=== PATIENT | female | born 2005 | race Caucasian/White ===

== ENCOUNTER 2024-05-06 20:52 | Emergency (ER) | payer BC, SELFPAY ==
[2024-05-06 20:59] VITALS: BP 140/84; PULSE 99; RESP 18; TEMP 38.4; O2SAT 99; BMI 20.5
--- NOTE | 2024-05-06 21:04 | ED.GENADULT ---
HPI - General Adult General Chief complaint: Sore Throat Stated complaint: Possible [place] Time Seen by Provider: 05/06/24 20:57 History of Present Illness HPI narrative: Pt states she has been feeling ill since April 21. Started with sore throat, now today began feeling feverish. Also c/o cough that began dry, now has yellow phlegm, headache, and just exhausted . Pt states she thinks she may have mono. Last took Advil yesterday. Has not been seen in clinic for these symptoms. 19-year-old young woman presenting to the emergency department with concern of fatigue and sore throat maybe as long as 2 weeks but more so the last week. Today was the 1st day she had fever. Arrives here with a temp of 101.2?. Initial symptoms with sore throat. Has had some cough mildly productive. Quite tired. She does have a friend who had mono but not really close contact. 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 She does have maybe some spring allergies and has been experiencing some nasopharyngeal congestion as well. First 2 days maybe had a reddish rash in the right upper neck. No abdominal pain. Intermittently has been feeling a little lightheaded. Related Data Previous Rx's ?Medication ?Instructions ?Recorded prednisone 20 mg tablet 40 mg (2 x 20 mg) PO DAILY 5 days 05/06/24 #10 tabs Allergies Allergy/AdvReac Type Severity Reaction Status Date / Time No Known Drug Allergies Allergy Verified 05/06/24 21:03 Review of Systems Status of ROS: Reports: 6 or more systems reviewed and unremarkable except as noted in History and below PFSH PFS Social History Smoking Status: Never smoker Do you use any of these nicotine containing products: Vaping Products Second hand tobacco smoke exposure: No How often do you have a drink containing alcohol: monthly or less How often do you have six or more drinks on one occasion: Never AUDIT-C Alcohol total score: 1 Non-prescribed substance use: marijuana (any form) service: No Exam Narrative: Exam Narrative: Pleasant. Tall. NAD. Does sound a little congested nasopharynx without facial swelling erythema or tenderness. She does have the facial and little neck a closed comedonal acne. Lungs are clear. Heart in elevated rate and regular rhythm without murmur or gallop. Neck is supple without anterior or posterior cervical lymphadenopathy. Oropharynx is little erythematous without edema/swelling. Extremities are well perfused without edema. There are no rash or skin. Does feel generally warm particularly about her neck. Abdomen is flat soft nontender no HSM. Const: Vital Signs, click to edit/add: Vital Signs - 24 hr 05/06/24 20:59 05/06/24 22:31 Temperature 101.2 F H 100.2 F H Pulse Rate [Pulse Oximeter] 99 77 Respiratory Rate 18 16 Blood Pressure [Ri ght Upper Arm] 140/84 H 119/77 Pulse Oximetry 99 99 Oxygen Delivery Me thod Room Air Room Air Documenting provider has reviewed patient's vital signs: yes Course Vital Signs Vital signs: Initial Vital Signs Temperature 101.2 F H 05/06/24 20:59 Temperature Source Temporal Artery Scan 05/06/24 20:59 Pulse Rate 99 05/06/24 20:59 Pulse Rhythm Regular 05/06/24 20:59 Respiratory Rate 18 05/06/24 20:59 Blood Pressure 140/84 H 05/06/24 20:59 Blood Pressure Mean 102 05/06/24 20:59 Blood Pressure Position Sitting 05/06/24 20:59 Pulse Oximetry 99 05/06/24 20:59 Oxygen Delivery Method Room Air 05/06/24 20:59 Vital Signs Temperature 101.2 F H 05/06/24 20:59 Pulse Rate 99 05/06/24 20:59 Respiratory Rate 18 05/06/24 20:59 Blood Pressure 140/84 H 05/06/24 20:59 Pulse Oximetry 99 05/06/24 20:59 Oxygen Delivery Method Room Air 05/06/24 20:59 Temperature 100.2 F H 05/06/24 22:31 Pulse Rate 77 05/06/24 22:31 Respiratory Rate 16 05/06/24 22:31 Blood Pressure 119/77 05/06/24 22:31 Pulse Oximetry 99 05/06/24 22:31 Oxygen Delivery Method Room Air 05/06/24 22:31 Medical Decision Making MDM Narrative Medical decision making narrative: Does appear to have what is likely viral illness. Unusual though with new fever. Would screen for infections present in the community along with Monospot. Monospot might not generate a positive result yet. Does not have any abdominal pain to warrant further concern. Pending initial screenings might also check chest x-ray potential pneumonia. Physical exam would not suggest anemia and the next level workup would be laboratory. Nasopharyngeal congestion may be contributing to sensation of fatigue/dyspnea. Chest x-ray reviewed by me is WNL. Labs are reassuring/negative. Perhaps some lingering bronchitis of sorts. Might benefit from prednisone and likely stimulating. This would also be be treatment in the setting of mono. Sending this into the pharmacy though and Mikaela will consider further. See patient discharge plan for further discussion Lab Data Lab results reviewed: Yes I reviewed the patient's lab results Labs: Lab Results 05/06/24 05/06/24 Range/Units 21:14 21:40 SARS-CoV-2 (PCR) Negative SARS-CoV-2 (Negative) Monoscreen Negative (Negative) Influenza Type A (PCR) Negative PCR FLU A (Negative) Influenza Type B (PCR) Negative PCR FLU B (Negative) RSV (PCR) Negative PCR RSV (Negative) Group A Strep DNA NOT DETECTED (Not Detectd) Discharge Plan Discharge Clinical Impression: Fever, Fatigue Patient Disposition: Home, Self-Care Condition: Stable Additional Instructions: Stay well-hydrated. Get regular and quality sleep. You might benefit from a decongestant like pseudoephedrine. Consider sleep under the mist of a cool mist humidifier. Can take up to 600 mg of ibuprofen or up to 850 mg of acetaminophen per dose. Prednisone can be helpful for lingering cough as well as for inflammation we see with mono. It can also help with inflammation that is creating nasopharyngeal congestion. You did not test positive for mono today. It might have been too early yet to get a positive result. I am sending prednisone in to your pharmacy if you like. If symptoms are continuing yet another week, would follow up possibly for retesting. Be seen also for persistent increasing shortness of breath, persistent fever lasting 4 more days, worsening chest pain. Prescriptions: New prednisone 20 mg tablet 40 mg PO DAILY 5 Days Qty: 10 0RF Follow Up/Referrals: Provider,Not a Local [Primary Care Provider] - Stand Alone Forms: [employer] Info Instructions
[2024-05-06 21:51] LABS: Mono Screen* Negative (Negative)
[2024-05-06 21:56] LABS: Strep A DNA Probe* NOT DETECTED (Not Detectd)
[2024-05-06 22:09] LABS: PCR FLU A Negative PCR FLU A (Negative); PCR FLU B Negative PCR FLU B (Negative); PCR RSV Negative PCR RSV (Negative); SARS PCR* Negative SARS-CoV-2 (Negative)
[2024-05-06 22:31] VITALS: BP 119/77; PULSE 77; RESP 16; TEMP 37.9; O2SAT 99
--- NOTE | 2024-05-06 22:36 | CRLHL7_ITS ---
For Patients: As a result of the Cures Act, medical imaging exams and procedure reports are released immediately into your electronic medical record. You may view this report before your referring provider. If you have questions, please contact your health care provider. Indication: Cough, dyspnea Technique: Two views of the chest Comparison: None Findings/Impression: No acute cardiopulmonary process detected. Dictated by Rich Villalpando MD @ 05/06/2024 11:07:12 PM (Electronically Signed)
== END 2024-05-06 23:26 | disposition home or self-care (01) ==
PROVIDERS: Emergency Provider Family Medicine
DX: R50.9 Fever, unspecified (principal); R53.83 Other fatigue
CPT/HCPCS: 36415; 71046; 86308; 87631; 87651; 99284

== ENCOUNTER 2024-05-09 09:01 | Outpatient (CLI) | payer BC, SELFPAY ==
[2024-05-09 09:34] LABS: Basophils Percent Auto 0.3 % (0.0-3.0); Eosinophils Percent Auto 0.1 % (0.0-7.0); Hemoglobin* 10.7 gm/dL (12.0-16.0); Immature Granulocytes Pct Auto 0.1 %; Lymphocytes Percent Auto 8.8 % (20-44); Mean Corpuscular HGB Conc 29 gm/dL (32-36); Mean Corpuscular Hemoglobin 21 pg (26-34); Mean Corpuscular Volume 72 fL (80-100); Monocytes Percent Auto 7.2 % (0.0-11.0); Neutrophils Percent Auto 83.5 % (42.0-72.0); Platelet Count* 347 K/uL (140-440); RDW Coefficient of Variation % 21.3 % (11.5-15.5); Red Blood Count 5.14 m/uL (4.00-5.20)
[2024-05-09 09:53] LABS: Albumin* 4.8 g/dL (3.3-5.0)
[2024-05-09 09:54] LABS: Chloride* 103 mmol/L (96-114); Potassium* 4.4 mmol/L (3.6-5.1); Sodium* 138 mmol/L (135-149)
[2024-05-09 09:56] LABS: Anion Gap 10 mEq/L (7-15); Bilirubin Direct* 0.2 mg/dL (0.0-0.5); Bilirubin Total* 0.7 mg/dL (0.1-1.5); Carbon Dioxide* 25 mmol/L (20-32); Creatinine* 0.9 mg/dL (0.5-1.5); Estimated Glomerular Filt Rate 94 ml/min
[2024-05-09 09:57] LABS: Alanine Aminotransferase* 20 U/L (4-35); Alkaline Phosphatase* 94 U/L (40-150); Aspartate Amino Transferase* 66 U/L (12-35); Blood Urea Nitrogen* 12 mg/dL (5-24); Calcium* 9.8 mg/dL (8.4-10.6); Glucose* 100 mg/dL (60-115); Total Protein* 8.8 g/dL (6.0-8.3)
[2024-05-09 10:24] LABS: Slide Review Reflex Yes
[2024-05-09 10:25] LABS: Slide Review Acceptable Review (Acceptable)
[2024-05-10 19:27] LABS: EBV Ab Nuclear Ag IgG >600.0 U/mL (0.0-21.9); EBV Ab Viral Capsid Ag IgM <10.0 U/mL (0.0-43.9); EBV Ab to Early (D) Ag IgG <5.0 U/mL (0.0-10.9)
== END 2024-05-09 09:02 | disposition home or self-care (01) ==
LOC: LAB 09:04
PROVIDERS: Visit Provider Family Medicine
DX: J02.9 Acute pharyngitis, unspecified (principal); R59.0 Localized enlarged lymph nodes
CPT/HCPCS: 36415; 80048; 80076; 85025; 86663; 86664; 86665

== ENCOUNTER 2024-05-09 12:14 | Emergency (ER) | payer BC, SELFPAY ==
[2024-05-09 12:21] VITALS: BP 131/86; PULSE 90; RESP 22; TEMP 38.1; O2SAT 99; BMI 20.5
--- NOTE | 2024-05-09 12:28 | CRLHL7_ITS ---
For Patients: As a result of the Cures Act, medical imaging exams and procedure reports are released immediately into your electronic medical record. You may view this report before your referring provider. If you have questions, please contact your health care provider. Indication: Shortness of breath Comparison: Two-view chest May 06, 2024 Technique: PA and lateral views of the chest Findings: There is no focal consolidation, effusion, or pneumothorax. The cardiomediastinal silhouette is within normal limits. The bony thorax is grossly intact. Impression: No acute cardiopulmonary abnormality. Dictated by Myles Talavera MD @ 05/09/2024 12:53:59 PM (Electronically Signed)
--- NOTE | 2024-05-09 13:08 | CRLHL7_ITS ---
For Patients: As a result of the Century Cures Act, medical imaging exams and procedure reports are released immediately into your electronic medical record. You may view this report before your referring provider. If you have questions, please contact your health care provider. Indication: Rule out abscess Technique: Volumetric multidetector CT images of the cervical soft tissues were obtained after the administration of low osmolar intravenous contrast. 75 cc Isovue 370 low osmolar intravenous contrast Comparison: None available. Findings: The partially visualized brain parenchyma is normal in attenuation without evidence of abnormal enhancement. The orbits and their contents are within normal limits. The paranasal sinuses are clear. The mastoid air cells are clear. There is moderate mucosal thickening and hyperemia of the adenoid and nasopharyngeal mucosa. There is enlargement of the dziu-cjllezj-wfpr-right palatine tonsil with demonstration of a rim enhancing abscess in the left tonsil measuring 1.5 x 1.3 centimeters with minimal encroachment of the parapharyngeal space. There is moderate edema within the left fascial pillar extending to the hypopharynx. There is marked edema at the base of tongue with demonstration of hypertrophic lymphoid tissue consistent with tonsillitis at the base of tongue. There is questionable mild inflammatory changes extending into the left submandibular space with mild thickening of the left platysma which may represent minimal early Jeremy`s angina. There is mild prominence of the right greater than left laryngeal ventricle. The thyroid gland is normal in attenuation. There are reactive cervical lymph nodes appreciated. The jugular veins are patent. The carotid arteries demonstrate no significant atherosclerotic narrowing. The lung apices are clear. There is mild spasmodic reversal of the normal cervical lordosis. Otherwise no acute osseous abnormality. Impression: Extensive inflammatory mucosal hypertrophy of the Waldeyer`s ring tissues including the left greater than right palatine tonsils, lingual tonsil, and adenoids with demonstration of a 1.5 x 1.3 centimeter peritonsillar abscess within the left palatine tonsil. There is minimal early inflammatory change appreciated within the left submandibular space which may represent developing Jeremy`s angina. Correlate with history of clinical symptoms. Please note that all CT scans at this facility use dose modulation, iterative reconstruction, and/or weight-based dosing when appropriate to reduce radiation dose to as low as reasonably achievable. Dictated by Myles Talavera MD @ 05/09/2024 2:17:20 PM (Electronically Signed)
[2024-05-09 13:10] LABS: Strep A DNA Probe* NOT DETECTED (Not Detectd)
[2024-05-09 13:17] LABS: Basophils Percent Auto 0.2 % (0.0-3.0); Eosinophils Percent Auto 0.1 % (0.0-7.0); Hematocrit 36.5 % (33.0-51.0); Hemoglobin* 10.7 gm/dL (12.0-16.0); Immature Granulocytes Pct Auto 0.2 %; Lymphocytes Percent Auto 8.8 % (20-44); Mean Corpuscular HGB Conc 29 gm/dL (32-36); Mean Corpuscular Hemoglobin 21 pg (26-34); Mean Corpuscular Volume 72 fL (80-100); Monocytes Percent Auto 7.3 % (0.0-11.0); Neutrophils Percent Auto 83.4 % (42.0-72.0); Platelet Count* 309 K/uL (140-440); RDW Coefficient of Variation % 21.1 % (11.5-15.5); Red Blood Count 5.08 m/uL (4.00-5.20); White Blood Count* 12.53 K/uL (4.50-11.00)
[2024-05-09 13:19] LABS: Slide Review Reflex No
[2024-05-09 13:22] LABS: PCR FLU A Negative PCR FLU A (Negative); PCR FLU B Negative PCR FLU B (Negative); PCR RSV Negative PCR RSV (Negative); SARS PCR* Negative SARS-CoV-2 (Negative)
[2024-05-09 13:36] LABS: Chloride* 102 mmol/L (96-114); Potassium* 4.2 mmol/L (3.6-5.1); Sodium* 138 mmol/L (135-149)
[2024-05-09 13:39] LABS: Est. Creatinine Clearance* 86.75; Estimated Glomerular Filt Rate 83 ml/min
[2024-05-09 13:40] LABS: Anion Gap 11 mEq/L (7-15); Blood Urea Nitrogen* 12 mg/dL (5-24); Calcium* 9.9 mg/dL (8.4-10.6); Carbon Dioxide* 25 mmol/L (20-32); Glucose* 98 mg/dL (60-115)
[2024-05-09 13:43] LABS: C Reactive Protein* 7.8 mg/dL (0.5-1.0)
[2024-05-09 13:53] LABS: Mono Screen* Negative (Negative)
[2024-05-09] MEDS: AMPICILLIN/SULBACTAM 3 GM in 0.9 % SODIUM CHLORIDE Mini-bag 100 ML IVPB ×2 (14:07→20:45)
--- NOTE | 2024-05-09 14:07 | ED.GENADULT ---
HPI - General Adult General Chief complaint: Sore Throat Stated complaint: Trouble breathing, cant swallow, sore throat Time Seen by Provider: 05/09/24 12:27 Source: patient Mode of arrival: ambulatory Limitations: no limitations History of Present Illness HPI narrative: A 19-year-old female coming in today complaining of not feeling well for about 2 weeks. Patient has had a sore throat and fevers. She feels like her sore throat has been progressively getting worse instead of better. Patient does have a history of peritonsillar abscesses is concerned that the same thing is happening again. In the last 24 hours her voice has become muffled and she has developed difficulty opening and closing her jaw. Yesterday she did have COVID, influenza, RSV and group a strep, and mono testing done all of which were negative. Related Data Previous Rx's ?Medication ?Instructions ?Recorded prednisone 20 mg tablet 40 mg (2 x 20 mg) PO DAILY 5 days 05/06/24 #10 tabs amoxicillin 400 mg-potassium 10 ml PO BID 7 days #140 mL 05/09/24 clavulanate 57 mg/5 mL oral suspension oxycodone-acetaminophen 5 mg-325 5 ml PO Q4-6H PRN pain #100 mL 05/09/24 mg/5 mL oral solution Allergies Allergy/AdvReac Type Severity Reaction Status Date / Time No Known Drug Allergies Allergy Verified 05/06/24 21:03 Review of Systems Status of ROS: Reports: 10 or more systems reviewed and unremarkable except as noted in History and below PFSH PFS Social History Smoking Status: Never smoker Do you use any of these nicotine containing products: Vaping Products Second hand tobacco smoke exposure: No How often do you have a drink containing alcohol: monthly or less How often do you have six or more drinks on one occasion: Never AUDIT-C Alcohol total score: 1 Non-prescribed substance use: marijuana (any form) service: No Exam Narrative: Exam Narrative: Well-nourished well-developed patient in no acute distress. Alert and oriented. Answers questions appropriately. Mood and affect are appropriate. Thoughts are goal oriented and rational. No tangential or magical thinking noted. Patient's voice sounds muffled. HEENT: Normocephalic atraumatic. Pupils are equally round reactive to light. Extraocular muscles are intact. Conjunctivae are moist without any icterus noted. Moist mucous membranes. Shows erythematous and swollen soft palate with double left side protruding forward. Patient is really difficult time opening her mouth fully. Cardiovascular: Heart is regular rate and rhythm S1 and S2 are present without any murmurs. Lungs: Clear to auscultation bilaterally no wheezes rhonchi or rales are appreciated. Patient takes deep breaths without any discomfort. Skin: Well perfused without any obvious rashes. Const: Vital Signs, click to edit/add: Vital Signs - 24 hr 05/09/24 12:21 05/09/24 14:27 Temperature 100.5 F H 101.1 F H Pulse Rate [Pulse Oximeter] 90 82 Respiratory Rate 22 18 Blood Pressure [Le ft Upper Arm] 131/86 119/78 Pulse Oximetry 99 100 Oxygen Delivery Me thod Room Air Room Air Course Course ED Course: Given her muffled voice, trismus in fever we did go ahead and establish an IV and give the patient Unasyn and dexamethasone. CBC shows a white cell count of 12.5, hemoglobin 10.7, 83.4% neutrophils. Chemistries are normal. CRP elevated at 7.8. Negative mono, COVID, influenza RSV and group a strep today. Chest x-ray, read by me, does not show any acute infection. CT of the neck shows a 1.5 x 1.3 cm peritonsillar abscess. Discussed patient with Dr. Ann who recommends surgical intervention. Dr. Reyes to see the patient in the ER. Dr. Reyes did come to evaluate the patient. He also looked at her scan. Per his recommendation he would like the patient to have another dose of IV Unasyn, then to be discharged home with Augmentin and Roxicet. He wants the patient to call Dr. Ann tomorrow if she is not feeling some improvement. Vital Signs Vital signs: Initial Vital Signs Temperature 100.5 F H 05/09/24 12:21 Temperature Source Temporal Artery Scan 05/09/24 12:21 Pulse Rate 90 05/09/24 12:21 Pulse Rhythm Regular 05/09/24 12:21 Respiratory Rate 22 05/09/24 12:21 Blood Pressure 131/86 05/09/24 12:21 Blood Pressure Mean 101 05/09/24 12:21 Blood Pressure Position Supine 09/17/24 12:21 Pulse Oximetry 99 05/09/24 12:21 Oxygen Delivery Method Room Air 05/09/24 12:21 Vital Signs Temperature 100.5 F H 05/09/24 12:21 Pulse Rate 90 05/09/24 12:21 Respiratory Rate 22 05/09/24 12:21 Blood Pressure 131/86 05/09/24 12:21 Pulse Oximetry 99 05/09/24 12:21 Oxygen Delivery Method Room Air 05/09/24 12:21 Temperature 101.1 F H 05/09/24 14:27 Pulse Rate 82 05/09/24 14:27 Respiratory Rate 18 05/09/24 14:27 Blood Pressure 119/78 05/09/24 14:27 Pulse Oximetry 100 05/09/24 14:27 Oxygen Delivery Method Room Air 05/09/24 14:27 Medications Administered Medications: Generic Name Dose Route Start Last Admin Trade Name Freq PRN Reason Stop Dose Admin Sodium Chloride 1,000 mls @ 1,000 mls/hr 05/09/24 16:00 05/09/24 15:57 0.9 % Sodium Chloride 1000 Ml IV 05/09/24 16:59 1,000 mls/hr .Q1H OZZIE Administration Discontinued Medications Generic Name Dose Route Start Last Admin Trade Name Freq PRN Reason Stop Dose Admin Dexamethasone 8 mg 05/09/24 14:31 05/09/24 14:43 Dexamethasone 4 Mg/Ml Vial IV 05/09/24 14:32 8 mg ONCE ONE Administration Ampicillin Sodium/Sulbactam 100 mls @ 200 mls/hr 05/09/24 13:24 05/09/24 14:47 Sodium 3 gm/ Sodium Chloride IVPB 05/09/24 13:25 Infused ONCE ONE Infusion Morphine Sulfate 2 mg 05/09/24 14:58 05/09/24 15:07 Morphine 2 Mg/Ml Inj IVP 05/09/24 14:59 2 mg ONCE ONE Administration Ondansetron HCl 4 mg 05/09/24 14:58 05/09/24 15:07 Ondansetron 2 Mg/Ml Inj IVP 05/09/24 14:59 4 mg ONCE ONE Administration Medical Decision Making MDM Narrative Medical decision making narrative: 19-year-old female with peritonsillar abscess. Plan per above, per ENT. Lab Data Lab results reviewed: Yes I reviewed the patient's lab results Labs: Lab Results 05/09/24 05/09/24 Range/Units 12:28 13:11 WBC 12.53 H (4.50-11.00) K/uL RBC 5.08 (4.00-5.20) m/uL Hgb 10.7 L (12.0-16.0) gm/dL Hct 36.5 (33.0-51.0) % MCV 72 L (80-100) fL MCH 21 L (26-34) pg MCHC 29 L (32-36) gm/dL RDW Coeff of Manoj 21.1 H (11.5-15.5) % Plt Count 309 (140-440) K/uL Neut % (Auto) 83.4 H (42.0-72.0) % Lymph % (Auto) 8.8 L (20-44) % [place] % (Auto) 7.3 (0.0-11.0) % Eos % (Auto) 0.1 (0.0-7.0) % Baso % (Auto) 0.2 (0.0-3.0) % Neut # (Auto) 10.50 H (1.7-7.0) K/uL Lymph # (Auto) 1.10 (0.90-2.90) K/uL [place] # (Auto) 0.90 (0.00-0.90) K/UL Eos # (Auto) 0.00 (0.00-0.50) K/uL Baso # (Auto) 0.00 (0.00-0.30) K/uL Abs Immat Gran (auto) 0.00 (0.00-0.30) K/uL Imm/Tot Granulo (auto) 0.2 % Sodium 138 (135-149) mmol/L Potassium 4.2 (3.6-5.1) mmol/L Chloride 102 (96-114) mmol/L Carbon Dioxide 25 (20-32) mmol/L Anion Gap 11 (7-15) mEq/L BUN 12 (5-24) mg/dL Creatinine 1.0 (0.5-1.5) mg/dL Estimated Creat Clear 86.75 Estimated GFR 83 ml/min Glucose 98 (60-115) mg/dL Calcium 9.9 (8.4-10.6) mg/dL C-Reactive Protein 7.8 H (0.5-1.0) mg/dL SARS-CoV-2 (PCR) Negative SARS-CoV-2 (Negative) Monoscreen Negative (Negative) Influenza Type A (PCR) Negative PCR FLU A (Negative) Influenza Type B (PCR) Negative PCR FLU B (Negative) RSV (PCR) Negative PCR RSV (Negative) Group A Strep DNA NOT DETECTED (Not Detectd) Imaging Data CT soft tissue neck: Attestation: I have reviewed the pertinent imaging results. Radiologist's impression: Technique: Volumetric multidetector CT images of the cervical soft tissues were obtained after the administration of low osmolar intravenous contrast. 75 cc Isovue 370 low osmolar intravenous contrast Comparison: None available. Findings: The partially visualized brain parenchyma is normal in attenuation without evidence of abnormal enhancement. The orbits and their contents are within normal limits. The paranasal sinuses are clear. The mastoid air cells are clear. There is moderate mucosal thickening and hyperemia of the adenoid and nasopharyngeal mucosa. There is enlargement of the zlrv-hkhxxhe-[id number]-right palatine tonsil with demonstration of a rim enhancing abscess in the left tonsil measuring 1.5 x 1.3 centimeters with minimal encroachment of the parapharyngeal space. There is moderate edema within the left fascial pillar extending to the hypopharynx. There is marked edema at the base of tongue with demonstration of hypertrophic lymphoid tissue consistent with tonsillitis at the base of tongue. There is questionable mild inflammatory changes extending into the left submandibular space with mild thickening of the left platysma which may represent minimal early Jeremy`s angina. There is mild prominence of the right greater than left laryngeal ventricle. The thyroid gland is normal in attenuation. There are reactive cervical lymph nodes appreciated. The jugular veins are patent. The carotid arteries demonstrate no significant atherosclerotic narrowing. The lung apices are clear. There is mild spasmodic reversal of the normal cervical lordosis. Otherwise no acute osseous abnormality. Impression: Extensive inflammatory mucosal hypertrophy of the Waldeyer`s ring tissues including the left greater than right palatine tonsils, lingual tonsil, and adenoids with demonstration of a 1.5 x 1.3 centimeter peritonsillar abscess within the left palatine tonsil. There is minimal early inflammatory change appreciated within the left submandibular space which may represent developing Jeremy`s angina. Correlate with history of clinical symptoms. Discharge Plan Discharge Clinical Impression: Abscess, peritonsillar Patient Disposition: Home, Self-Care Condition: Stable Additional Instructions: Take all antibiotics as prescribed. Okay to take the 1st dose in the morning. You should call Dr. Jennings tomorrow if you are not feeling some improvement. (call the main clinic phone number, this number will be provided to you) If, by chance, you were not able to get a hold of him then you can call Dr. Reyes at [phone]. If you are feeling worse, return to the emergency department. Prescriptions: New amoxicillin-pot clavulanate 400-57 mg/5 mL suspension for reconstitution 10 ml PO BID 7 Days Qty: 140 0RF oxycodone-acetaminophen 5-325 mg/5 mL solution 5 ml PO Q4-6H PRN (Reason: pain) Qty: 100 0RF No Action prednisone 20 mg tablet 40 mg PO DAILY 5 Days Qty: 10 0RF Follow Up/Referrals: Provider,Not a Local [Primary Care Provider] - Stand Alone Forms: [employer] Info Instructions
[2024-05-09 14:27] VITALS: BP 119/78; PULSE 82; RESP 18; TEMP 38.4; O2SAT 100
[2024-05-09] MEDS: dexAMETHasone 4 MG/ML VIAL 8 MG IV (14:43)
[2024-05-09] MEDS: ONDANSETRON 2 MG/ML inj 4 MG IVP (15:07)
[2024-05-09] MEDS: MORPHINE 2 MG/ML inj IVP (15:07)
[2024-05-09] MEDS: 0.9 % SODIUM CHLORIDE 1000 ml 1,000 ML IV (15:57)
[2024-05-09 17:09] VITALS: BP 119/78; PULSE 80; RESP 18; TEMP 37.6; O2SAT 97
[2024-05-09] MEDS: KETOROLAC 30 MG/ML inj IVP (17:13)
== END 2024-05-09 22:00 | disposition home or self-care (01) ==
PROVIDERS: Emergency Provider Family Medicine
DX: J36 Peritonsillar abscess (principal)
CPT/HCPCS: 36415; 70491; 71046; 80048; 80076; 85025; 86140; 86308; 86663; 86664; 86665; 87631; 87651; 94761; 96365; 96366; 96375; 99284; 99285; J0295; J1100; J1885; J2270; J2405; J7030; Q9967

== ENCOUNTER 2024-05-11 03:11 | Day surgery (SDC) | payer BC, SELFPAY ==
[2024-05-11] VITALS (14 sets, daily range): BP systolic 99–118; BP diastolic 56–77; PULSE 54–77; RESP 12–16; TEMP 36.5–37; O2SAT 94–100; BMI 19.9
--- NOTE | 2024-05-11 03:22 | ED_ITS ---
HPI - General Adult General Chief complaint: Ear/Nose/Throat Problem Stated complaint: abscess in tonsils Time Seen by Provider: 05/11/24 03:22 History of Present Illness HPI narrative: pt reports pain to left side of throat. Pt has an abscess to tonsils, left sided pain . Pt was told to be seen in ER if pain became worse. Pt has an appoint today with surgeon to see if antibiotics are working. Pt reports breathing OK, difficulty in swallowing. 19-year-old young woman returning to the emergency department with concern of increased pain in her throat. Diagnosed about 36 hours ago with possible left- sided peritonsillar abscess after about 2 weeks of fatigue and then increasing sore throat. Was treated in the emergency department with 2 doses of Unasyn, 1 dose of dexamethasone and discharged on Augmentin which she has continued to take. No fever. Have been crushing up pills. Taking regular oxycodone but does not sound like regular ibuprofen or acetaminophen. Having trouble keeping up with intake due to discomfort. No difficulty breathing. Was to follow up with ENT in clinic today for reassessment. Later says it feels as if it is larger on the left side Past medical -- denies prior surgeries; no known complications than stated Related Data Previous Rx's ?Medication ?Instructions ?Recorded prednisone 20 mg tablet 40 mg (2 x 20 mg) PO DAILY 5 days 05/06/24 #10 tabs amoxicillin 400 mg-potassium 10 ml PO BID 7 days #140 mL 05/09/24 clavulanate 57 mg/5 mL oral suspension oxycodone-acetaminophen 5 mg-325 5 ml PO Q4-6H PRN pain #100 mL 05/09/24 mg/5 mL oral solution Allergies Allergy/AdvReac Type Severity Reaction Status Date / Time No Known Drug Allergies Allergy Verified 05/06/24 21:03 Review of Systems Status of ROS: Reports: 6 or more systems reviewed and unremarkable except as noted in History and below [facility] Social History Smoking Status: Never smoker Do you use any of these nicotine containing products: Vaping Products Second hand tobacco smoke exposure: No How often do you have a drink containing alcohol: monthly or less How often do you have six or more drinks on one occasion: Never AUDIT-C Alcohol total score: 1 Non-prescribed substance use: marijuana (any form) service: No Exam Narrative: Exam Narrative: Pleasant. Initially not talking as that only painful. No stridor. Lungs are clear. Heart in regular rate and rhythm. Extremities are well perfused and without edema. Neck is supple though quite tender in the left upper anterior cervical neck. Small lymphadenopathy here. Demonstrating trismus she reluctantly opens her mouth a little bit. Very difficult to visualize posterior oropharynx. Generally faintly erythematous and with asymmetry of edema in the left soft palate/tonsillar area. Const: Vital Signs, click to edit/add: Vital Signs - 24 hr 05/11/24 03:15 Temperature 97.7 F Pulse Rate [Left P ulse Oximeter] 77 Respiratory Rate 16 Blood Pressure [Ri ght Upper Arm] 118/77 Pulse Oximetry 100 Oxygen Delivery Me thod Room Air Documenting provider has reviewed patient's vital signs: yes Course Vital Signs Vital signs: Initial Vital Signs Temperature 97.7 F 05/11/24 03:15 Temperature Source Temporal Artery Scan 05/11/24 03:15 Pulse Rate 77 05/11/24 03:15 Pulse Rhythm Regular 05/11/24 03:15 Respiratory Rate 16 05/11/24 03:15 Blood Pressure 118/77 05/11/24 03:15 Blood Pressure Mean 90 05/11/24 03:15 Blood Pressure Position Sitting 05/11/24 03:15 Pulse Oximetry 100 05/11/24 03:15 Oxygen Delivery Method Room Air 05/11/24 03:15 Vital Signs Temperature 97.7 F 05/11/24 03:15 Pulse Rate 77 05/11/24 03:15 Respiratory Rate 16 05/11/24 03:15 Blood Pressure 118/77 05/11/24 03:15 Pulse Oximetry 100 05/11/24 03:15 Oxygen Delivery Method Room Air 05/11/24 03:15 Temperature 97.7 F 05/11/24 03:15 Pulse Rate 77 05/11/24 03:15 Respiratory Rate 16 05/11/24 03:15 Blood Pressure 118/77 05/11/24 03:15 Pulse Oximetry 100 05/11/24 03:15 Oxygen Delivery Method Room Air 05/11/24 03:15 Medications Administered Medications: Discontinued Medications Generic Name Dose Route Start Last Admin Trade Name Freq PRN Reason Stop Dose Admin Sodium Chloride 1,000 mls @ 1,000 mls/hr 05/11/24 03:32 05/11/24 04:46 0.9 % Sodium Chloride 1000 Ml IV 05/11/24 04:31 Infused .Q1H ONE Infusion Sodium Chloride 500 mls @ 500 mls/hr 05/11/24 05:09 05/11/24 05:38 0.9 % Sodium Chloride 500 Ml IV 05/11/24 06:08 500 mls/hr .Q1H ONE Administration Ketorolac Tromethamine 15 mg 05/11/24 03:32 05/11/24 03:49 Ketorolac 15 Mg/Ml Inj IVP 05/11/24 03:33 15 mg ONCE ONE Administration Morphine Sulfate 4 mg 05/11/24 03:32 05/11/24 03:49 Morphine 4 Mg/Ml Inj IVP 05/11/24 03:33 4 mg ONCE ONE Administration Morphine Sulfate 4 mg 05/11/24 05:09 05/11/24 05:37 Morphine 4 Mg/Ml Inj IVP 05/11/24 05:10 4 mg ONCE ONE Administration Ondansetron HCl 4 mg 05/11/24 03:32 05/11/24 03:49 Ondansetron 2 Mg/Ml Inj IVP 05/11/24 03:33 4 mg ONCE ONE Administration Medical Decision Making MDM Narrative Medical decision making narrative: Will need to assess objectively with imaging I think at this point whether not is worse or if this just represents poorly controlled pain. IV established and given 4 mg of morphine long with 50 mg of ketorolac. Following treatment is be able to talk a little more. Still with this hot potato/thick sounding voice. White count is similar to slightly elevated at 13.3. CRP elevated at 4.6. Hemoglobin of 9.5 with microcytic indices. Did review CT imaging which shows persistent abscess. Radiology over-read as below. COMPARISON: 05/09/2024 TECHNIQUE: CT of the neck with contrast. Multiplanar axial, coronal, and sagittal reformats were reconstructed. Intravenous contrast: 66 mL Isovue 370. FINDINGS: Lymph nodes: Enlarged normally enhancing left level 2 lymph node measures 2.0 x 1.5 cm. There are some other mildly enlarged bilateral cervical lymph nodes. No francisco j necrosis or abscess. Parotid and submandibular glands: Normal. Thyroid gland: Normal. Tonsils: Left peritonsillar abscess measures 1.7 x 1.5 x 2.3 cm. Previously measured 1.5 x 1.3 x 1.9 cm. Mild enlargement and enhancement of the palatine and lingual tonsils. Mild enlargement and enhancement of the adenoids for patient of this age. Airway: Similar mass effect on the posterior oropharyngeal airway due to the peritonsillar abscess. The epiglottis and aryepiglottic folds are normal. Normal upper trachea. Parapharyngeal spaces: See above regarding the peritonsillar abscess Paranasal sinus: Normal. Soft tissues: Normal. No swelling. No foreign body. Arteries: No atherosclerosis. Veins: No deep vein thrombosis. Lung apices: Normal. Bones: No fractures. No focal bone lesions. Included intracranial contents, orbits and mastoids: Normal. IMPRESSION: Slightly increased size of the left peritonsillar abscess, with [id number] associated focal airway deviation/compression. Persistent reactive appearing cervical lymph nodes. Imaging and symptoms would suggest that not improving or seems to be worsening. Have discussed with ENT and anticipating surgical intervention. Would consider medically cleared for trial of anesthesia. Medical Records Medical records reviewed: Yes I reviewed the patient's medical records Lab Data Lab results reviewed: Yes I reviewed the patient's lab results Labs: Lab Results 05/11/24 Range/Units 03:50 WBC 13.29 H (4.50-11.00) K/uL RBC 4.45 (4.00-5.20) m/uL Hgb 9.5 L (12.0-16.0) gm/dL Hct 32.7 L (33.0-51.0) % MCV 74 L (80-100) fL MCH 21 L (26-34) pg MCHC 29 L (32-36) gm/dL RDW Coeff of Manoj 21.2 H (11.5-15.5) % Plt Count 326 (140-440) K/uL Neut % (Auto) 76.1 H (42.0-72.0) % Lymph % (Auto) 17.1 L (20-44) % [place] % (Auto) 6.2 (0.0-11.0) % Eos % (Auto) 0.2 (0.0-7.0) % Baso % (Auto) 0.2 (0.0-3.0) % Neut # (Auto) 10.10 H (1.7-7.0) K/uL Lymph # (Auto) 2.30 (0.90-2.90) K/uL [place] # (Auto) 0.80 (0.00-0.90) K/UL Eos # (Auto) 0.00 (0.00-0.50) K/uL Baso # (Auto) 0.00 (0.00-0.30) K/uL Abs Immat Gran (auto) 0.00 (0.00-0.30) K/uL Imm/Tot Granulo (auto) 0.2 % C-Reactive Protein 4.6 H (0.5-1.0) mg/dL HCG, Qual Negative (Negative) Discharge Plan Discharge Clinical Impression: Peritonsillar abscess Patient Disposition: XFER to OR Condition: Stable Follow Up/Referrals: Provider,Not a Local [Primary Care Provider] -
[2024-05-11] MEDS: 0.9 % SODIUM CHLORIDE 1000 ml 1,000 ML IV (03:49)
[2024-05-11] MEDS: MORPHINE 4 MG/ML INJ IVP ×2 (03:49→05:37)
[2024-05-11] MEDS: KETOROLAC 15 MG/ML inj IVP (03:49)
[2024-05-11] MEDS: ONDANSETRON 2 MG/ML inj 4 MG IVP (03:49)
[2024-05-11 04:01] LABS: Basophils Percent Auto 0.2 % (0.0-3.0); Eosinophils Percent Auto 0.2 % (0.0-7.0); Hematocrit 32.7 % (33.0-51.0); Hemoglobin* 9.5 gm/dL (12.0-16.0); Immature Granulocytes Pct Auto 0.2 %; Lymphocytes Percent Auto 17.1 % (20-44); Mean Corpuscular HGB Conc 29 gm/dL (32-36); Mean Corpuscular Hemoglobin 21 pg (26-34); Mean Corpuscular Volume 74 fL (80-100); Monocytes Percent Auto 6.2 % (0.0-11.0); Neutrophils Percent Auto 76.1 % (42.0-72.0); Platelet Count* 326 K/uL (140-440); RDW Coefficient of Variation % 21.2 % (11.5-15.5); Red Blood Count 4.45 m/uL (4.00-5.20); White Blood Count* 13.29 K/uL (4.50-11.00)
[2024-05-11 04:02] LABS: Slide Review Reflex No
[2024-05-11 04:19] LABS: C Reactive Protein* 4.6 mg/dL (0.5-1.0)
--- NOTE | 2024-05-11 05:08 | CRLHL7_ITS ---
For Patients: As a result of the Century Cures Act, medical imaging exams and procedure reports are released immediately into your electronic medical record. You may view this report before your referring provider. If you have questions, please contact your health care provider. INDICATION: Evaluate abscess size. COMPARISON: 05/09/2024 TECHNIQUE: CT of the neck with contrast. Multiplanar axial, coronal, and sagittal reformats were reconstructed. Intravenous contrast: 66 mL Isovue 370. FINDINGS: Lymph nodes: Enlarged normally enhancing left level 2 lymph node measures 2.0 x 1.5 cm. There are some other mildly enlarged bilateral cervical lymph nodes. No francisco j necrosis or abscess. Parotid and submandibular glands: Normal. Thyroid gland: Normal. Tonsils: Left peritonsillar abscess measures 1.7 x 1.5 x 2.3 cm. Previously measured 1.5 x 1.3 x 1.9 cm. Mild enlargement and enhancement of the palatine and lingual tonsils. Mild enlargement and enhancement of the adenoids for patient of this age. Airway: Similar mass effect on the posterior oropharyngeal airway due to the peritonsillar abscess. The epiglottis and aryepiglottic folds are normal. Normal upper trachea. Parapharyngeal spaces: See above regarding the peritonsillar abscess Paranasal sinus: Normal. Soft tissues: Normal. No swelling. No foreign body. Arteries: No atherosclerosis. Veins: No deep vein thrombosis. Lung apices: Normal. Bones: No fractures. No focal bone lesions. Included intracranial contents, orbits and mastoids: Normal. IMPRESSION: Slightly increased size of the left peritonsillar abscess, with [id number]-[id number] associated focal airway deviation/compression. Persistent reactive appearing cervical lymph nodes. Please note that all CT scans at this facility use dose modulation, iterative reconstruction, and/or weight-based dosing when appropriate to reduce radiation dose to as low as reasonably achievable. Dictated by Rosalinda Mccartney MD @ 05/11/2024 6:01:28 AM (Electronically Signed)
[2024-05-11 05:22] LABS: HCG Qualitative Serum* Negative (Negative)
[2024-05-11] MEDS: 0.9 % SODIUM CHLORIDE 500 ML 500 ML IV (05:38)
--- NOTE | 2024-05-11 09:15 | W.PM.ENTCN ---
HPI- ENT Consult Date of Consult Date Seen: 05/11/24 Patient: [facility] Patient Consult date: 05/11/24 Requesting Physician: Other Primary Care Provider: Not a Local Provider Consult Narrative Reason for consult: 19-year-old female with worsening left peritonsillar abscess Narrative: Mikaela Real is a 19 year old female diagnosed with a left peritonsillar abscess 2 days ago. Returns to ER after medical treatment of antibiotic and steroid and abscess has increased in size and symptoms are worse now. She did have some temporary improvement. Complains of trismus and odynophagia and dysphagia PFSH [facility] Social History Smoking Status: Never smoker Do you use any of these nicotine containing products: Vaping Products Second hand tobacco smoke exposure: No How often do you have a drink containing alcohol: monthly or less How often do you have six or more drinks on one occasion: Never AUDIT-C Alcohol total score: 1 Non-prescribed substance use: marijuana (any form) service: No Meds Home Medications and Allergies Allergies Allergy/AdvReac Type Severity Reaction Status Date / Time No Known Drug Allergies Allergy Verified 05/06/24 21:03 Exam Narrative: Exam Narrative: insert general muffled voice, significant trismus bulge left peritonsillar region hypopharynx larynx adequate airway Const: Vital Signs, click to edit/add: Vital Signs - 24 hr 05/11/24 03:15 Temperature 97.7 F Pulse Rate [Left P ulse Oximeter] 77 Respiratory Rate 16 Blood Pressure [Ri ght Upper Arm] 118/77 Pulse Oximetry 100 Oxygen Delivery Me thod Room Air ENT-CN: Result Labs Labs: Short CBC 05/11/24 Range/Units 03:50 WBC 13.29 H (4.50-11.00) K/uL Hgb 9.5 L (12.0-16.0) gm/dL Hct 32.7 L (33.0-51.0) % Plt Count 326 (140-440) K/uL Assessment and Plan Assessment and plan (1) Peritonsillar abscess: Status: Acute Plan worsening left peritonsillar abscess Discussed options of continued medical therapy versus incision and drainage. Risks including anesthesia bleeding recurrence injury to adjacent structures etc. all reviewed. She understands and wishes to proc Total Time Spent Total Time Spent: 60
--- NOTE | 2024-05-11 09:55 | W.ANESCHARGE ---
Anesthesia Charges Start Date/Time Anesthesia Start Date: 05/11/24 Anesthesia Start Time: 09:42 Stop Date/Time Anesthesia Stop Date: 05/11/24 Anesthesia Stop Time: 10:13 Summary Emergency: MDA
--- NOTE | 2024-05-11 09:59 | P.ENTPROC_ITS ---
Procedure Note Date of procedure: 05/11/24 Procedure: preop diagnosis left peritonsillar abscess Postoperative diagnosis same Procedure incision drainage left peritonsillar abscess Under general endotracheal anesthesia patient was prepped and draped in usual fashion. It should be noted there were no significant issues with her airway for intubation. The McIvor mouth gag was inserted the tongue retracted forward. The needlepoint cautery was used to make an incision along the inferolateral tonsil overlying the abscess and just lateral to the tonsillar pillar. Blunt dissection was then use to dissect along the outside of the tonsil to the abscess cavity. This was entered with blunt dissection. The large amount of pus was drained with suction. This was also cultured. The abscess cavity was then irrigated 3 times with normal saline. Bleeding was controlled with Coblat ion but there was minimal bleeding. The patient is active in the operating room taken recovery in satisfactory condition. Blood loss was less than 10 mL. Surgeon: Delfino Magana MD
--- NOTE | 2024-05-11 10:02 | SUR.OPER ---
PATIENT QUESTIONS ANSWERED SATISFACTORILY PREOPERATIVELY. PATIENT BROUGHT TO OR #3 PER CART. Patient positioned supine on OR #3 bed. Perioperative team wrapped arms bilaterally at patient side with drawsheet. ? Final approval of positioning by surgeon.
--- NOTE | 2024-05-11 10:15 | W.ANESCHARGE ---
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
[2024-05-11] MEDS: fentaNYL 100 MCG/2 ML inj 50 MCG IVP ×2 (10:16→10:26)
[2024-05-11] MEDS: LACTATED RINGERS 1000 ML 1,000 ML 100 ML IV (10:49)
[2024-05-11] MEDS: IBUPROFEN 100 MG/5 ML SUSP 200 MG PO (11:16)
[2024-05-11] MEDS: ACETAMINOPHEN 160 MG/5 ML CUP 320 MG PO (11:16)
[2024-05-11] MEDS: OXYCODONE 1 MG/ML ORAL SOLN 5 MG PO (11:16)
== END 2024-05-11 12:52 | disposition home or self-care (01) ==
LOC: ED 09:19 → SS 09:56
PROVIDERS: Emergency Provider Family Medicine; Visit Provider Otolaryngology
PROC: 0C9PXZZ Drainage of Tonsils, External Approach (ICD-10-PCS; CPT 42700; principal; 2024-05-11 09:45)
DX: J36 Peritonsillar abscess (principal)
CPT/HCPCS: 42700; 00170; 36415; 70491; 84703; 85025; 86140; 87070; 87075; 87077; 87181; 87186; 87205; 99140; 99284; 99285; A9270; J0330; J1100; J1885; J2270; J2405; J2704; J3010; J7030; J7120; Q9967

== ENCOUNTER 2024-06-08 12:11 | Inpatient (IN) | payer BC, SELFPAY ==
--- OUTSIDE RECORDS SUMMARY | 2024-06-08 12:12 | XMS_ITS | Clinical Summary ---
Author Organization [facility] Address [address] [place] [id number] Care Team Providers Care Distance Education Coordinator Name Role Phone No Ref-Primary, Physician Primary Care Provider Allergies No known active allergies Medications Medication Sig Dispensed Refills Start Date End Date Status [id number] 0.18/0.215/0.25 MG-25 MCG tablet Take 1 tablet by mouth daily at 2 pm 04/05/2023 Active methylphenidate (METADATE ER) 10 MG CR tablet Take 10 mg by mouth every morning Active Active Problems No known active problems Social History Tobacco Use Types Packs/Day Years Used Date Smoking Tobacco: Never Smokeless Tobacco: Never Alcohol Use Standard Drinks/Week Comments Yes 0 (1 standard drink = 0.6 oz pur e alcohol) Adolescent Education Answer Date Record ed Getting School Help Needed Not on file 05/15 Sex and Gender Information Value Date Recorded Sex Assigned at Not on file Gender Identity Not on file Sexual Orientation Not on file Last Filed Vital Signs Vital Sign Reading Time Taken Comments Blood Pressure 119/73 04/29/2023 7:25 PM CDT Pulse 92 04/29/2023 7:25 PM CDT Temperature 37.2 ??C (99 ??F) 04/29/2023 7:25 PM CDT Respiratory Rate 16 04/29/2023 7:25 PM CDT Oxygen Saturation 100% 04/29/2023 7:25 PM CDT Inhaled Oxygen Concentration - - Weight 59.9 kg (132 lb) 04/29/2023 7:25 PM CDT Height - - Body Mass Index - - Plan of Treatment Health Maintenance Due Date Last Done Comments ADVANCE CARE PLANNING 2004 ANNUAL REVIEW OF HM ORDERS 2004 YEARLY PREVENTIVE VISIT 2004 HIV SCREENING 2019 HEPATITIS C SCREENING 2022 PHQ-2 (once per calendar year) 2023 CHLAMYDIA SCREENING 03/02/2024 03/02/2023, COVID-19 Vaccine ( season) 2024 07/22/2022, 08/14/2021, 01/04/2021, Additional history exists INFLUENZA VACCINE (#1) 2024 , 05/15/2019, 11/10/2018, Additional history exists DTAP/TDAP/TD IMMUNIZATION (6 - Td or Tdap) 07/26/2025 07/26/2015, 2009, 10/02/2005, Additional history exists RSV VACCINE (1 - 1-dose 75+ series) 2079 HEPATITIS B IMMUNIZATION Completed 005, 2004, 2004 Pneumococcal Vaccine: Pediatrics (0 to 5 Years) and At-Risk Patients (6 to 64 Years) Aged Out 2005, 2004, 2004, Additional history exists No longer eligible based on patient's age to complete this topic HPV IMMUNIZATION Completed 04/22/2018, 05/03/2017 MENINGITIS IMMUNIZATION Completed 01/27/2021, 07/26 RSV MONOCLONAL ANTIBODY Aged Out No l onger eligible based on patient's age to complete this topic Procedures Procedure Name Priority Date/Time Associated Diagnosis Comments MICROBIOLOGY ISOLATE REFERRAL Routine 05/11/2024 10:10 AM CDT MICROBIOLOGY ISOLATE REFERRAL Routine 05/11/2024 10:10 AM CDT CHLAMYDIA TRACHOMATIS/NEISSERIA GONORRHOEAE BY PCR Routine 03/02/2023 11:31 AM CDT Acne, unspecified from Last 3 Months or Most Recently Relevant to Health Maintenance Results * (ABNORMAL) Microbiology Isolate Referral (05/11/2024 10:10 AM CDT) Only the most recent of2 resultswithin the time period is included. Culture Beta hemolytic Streptococcus species(A) KHUSHBOO 05/16/2024 10:34 AM CDT [facility] Comment: Group C Streptococcus Organism identified by client. Abscess BILATERAL PALATINE TONSILS / Unknown Non-blood Collection / Unknown 05/11/2024 10:10 AM CDT 05/15/2024 10:27 AM CDT Narrative Organism Antibiotic Method Susceptibility Beta hemolytic Streptococcus species Penicillin KHUSHBOO <=0.03 ug/mL: Susceptible Beta hemolytic Streptococcus species Clindamycin KHUSHBOO 0.25 ug/mL: Susceptible Beta hemolytic Streptococcus species Erythromycin KHUSHBOO <=0.06 ug/mL: Susceptible Beta hemolytic Streptococcus species Cefotaxime KHUSHBOO <=0.25 ug/mL: Susceptible Beta hemolytic Streptococcus species Ceftriaxone KHUSHBOO <=0.25 ug/mL: Susceptible Beta hemolytic Streptococcus species Vancomycin KHUSHBOO 0.5 ug/mL: Susceptible Delfino Olivares MD LAB - [facility] Inf. Diseases Diag. Lab [address] [facility] [place] [address] * Chlamydia trachomatis/Neisseria gonorrhoeae by PCR (03/02/2023 11:31 AM CDT) Pathologist [facility] Chlamydia Trachomatis Negative Negative 03/03/2023 12:34 PM CDT [facility] Comment: Negative for C. trachomatis rRNA by paper maker mediated amplification. A negative result by paper maker mediated amplification does not preclude the presence of infection because results are dependent on proper and adequate collection, absence of inhibitors and sufficient rRNA to be detected. Neisseria gonorrhoeae Negative Negative 03/03/2023 12:34 PM CDT [facility] Comment:Negative for N. gono rrhoeae rRNA by paper maker mediated amplification. A negative result by paper maker mediated amplification does not preclude the presence of C. trachomatis infection because results are dependent on proper and adequate collection, absence of inhibitors and sufficient rRNA to be detected. Urine VOIDED URINE SPECIMEN / Unknown Non-blood Collection / Unknown 03/02/2023 11:31 AM CDT 03/02/2023 2:39 PM CDT Cuca Lorenzo MD LAB - MICRO GENE RAL ORDERABLES [facility] Inf. Diseases Diag. Lab [address] [facility], [address] [place] [address], [place] [phone] from Last 3 Months or Most Recently Relevant to Health Maintenance Care Teams Distance Education Coordinator Relationship Specialty Start Date End Date No Ref-Primary, Physician PCP - General 08/26/21
--- OUTSIDE RECORDS SUMMARY | 2024-06-08 12:12 | XMS_ITS | Referral Summary ---
Author Organization [facility] Address [address] [place] [id number] Care Team Providers Care Manager Continuous Improvement Name Role Phone No Ref-Primary, Physician Primary Care Provider Allergies No known active allergies Medications Medication Sig Dispensed Refills Start Date End Date Status [id number] 0.18/0.215/0.25 MG-25 MCG tablet Take 1 tablet [...] Mass Index - - Plan of Treatment Not on file Procedures Procedure Name Priority Date/Time Associated Diagnosis [...] Susceptible Delfino Olivares MD LAB - MICRO NERAL ORDERABLES [facility] Inf. Diseases Diag. Lab [address] [facility] [place] [address] * Chlamydia trachomatis/Neisseria gonorrhoeae by PCR (03/02/2023 11:31 AM CDT) Chlamydia Trachomatis Negative Negative 03/03/2023 12:34 PM CDT [facility] Comment: Negative for C. trachomatis rRNA by fish pitcher mediated amplification. A negative result by fish pitcher mediated amplification does not preclude the presence of infection because results are dependent on proper and adequate collection, absence of inhibitors and sufficient rRNA to be detected. Neisseria gonorrhoeae Negative Negative 03/03/2023 12:34 PM CDT [facility] Comment:Negative for N. gono rrhoeae rRNA by fish pitcher mediated amplification. A negative result by fish pitcher mediated amplification does not preclude the presence of C. trachomatis infection because results are dependent on proper and adequate collection, absence of inhibitors and sufficient rRNA to be detected. Urine VOIDED URINE SPECIMEN / Unknown Non-blood Collection / Unknown 03/02/2023 11:31 AM CDT 03/02/2023 2:39 PM CDT Cuca Lorenzo MD LAB - MICRO GENE RAL ORDERABLES [facility] Inf. Diseases Diag. Lab [address] [facility], [address] [place] [address], [facility] [phone] from Last 3 Months or Most Recently Relevant to Health Maintenance Care Teams Manager Continuous Improvement Relationship Specialty Start Date End Date No Ref-Primary, Physician PCP - General 08/26/21
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
[2024-06-08 12:17] VITALS: BP 133/77; PULSE 90; RESP 16; TEMP 36.7; O2SAT 98; BMI 19.9
--- NOTE | 2024-06-08 12:31 | ED.GENADULT ---
HPI - General Adult General Time Seen by Provider: 12:31 Date Seen: 06/08/24 Chief complaint: Ear/Nose/Throat Problem Stated complaint: Tonsil pain thinks abscess Time Seen by Provider: 06/08/24 12:14 Source: patient and RN notes reviewed Mode of arrival: ambulatory Limitations: no limitations History of Present Illness HPI narrative: This 19-year-old female is coming in with concerns of recurrent left tonsillar abscess. On Wednesday or Wednesday of this week, patient developed sore throat, over the week it has lateralized to the left side where the pain is. It hurts to talk, hurts to swallow. She feels like she has a lingering cough from previous respiratory infection. She had fevers at the onset of this when her throat was sore but that is went away. She has been doing ibuprofen for pain. She has had recurrent peritonsillar abscess. She last had this left para tonsillar abscess drain on May 11 last month here. 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 No known ill contacts. Patient states there is no possibility for . Related Data Home Medications ?Medication ?Instructions ?Recorded ?Confirmed No Known Home Medications 06/08/24 06/08/24 Allergies Allergy/AdvReac Type Severity Reaction Status Date / Time No Known Drug Allergies Allergy Verified 05/17/24 09:54 Review of Systems Status of ROS: Reports: 6 or more systems reviewed and unremarkable except as noted in History and below [facility] Surgical History (Updated 06/08/24 @ 15:20 by Argenis Mack PA-C) History of incision and drainage ?Z98.890 - Other specified postprocedural states (ICD-10) Social History What is your current living situation?: I presently have a place to live Problems where you live: no known problems Problems where you live details: na In the past 12 months, utilities in danger of being shut off: no In past 12 months, lack of transportation kept you from medical appts, meetings, work, or getting things needed for daily living: no In the past 12 mos, have been you worried that your food would run out before you had money to buy more?: never true In the past 12 mos, the food you bought just didn't last and you didn't have money to buy more?: never true Highest level of school completed/degree received: some college, no degree Smoking Status: Former smoker Do you use any of these nicotine containing products: Vaping Products Second hand tobacco smoke exposure: No How often do you have a drink containing alcohol: 2-3 times a week How many standard drinks containing alcohol do you have on a typical day: 1 or 2 How often do you have six or more drinks on one occasion: Never AUDIT-C Alcohol total score: 3 Non-prescribed substance use: marijuana (any form) Caffeine: Yes How often does anyone, including family, friends and others, physically hurt you: never How often does anyone, including family, friends and others, insult or talk down to you: never How often does anyone, including family, friends and others, threaten you with harm: never How often does anyone, including family, friends and others, scream or curse at you: never service: No Exam Const: Vital Signs, click to edit/add: Vital Signs - 24 hr 06/08/24 12:17 06/08/24 14:22 06/08/24 14:42 Temperature 98.1 F 98.5 F Pulse Rate [Pulse Oximeter] 90 87 74 Respiratory Rate 16 16 20 Blood Pressure [Ri ght Arm] 141/82 H Blood Pressure [Ri ght Upper Arm] 133/77 107/77 Pulse Oximetry 98 98 100 Oxygen Delivery Me thod Room Air Room Air Room Air This 19-year-old female is alert, interactive, no apparent distress. She is ambulatory into the ED of her own accord. Face atraumatic, sclera clear, conjugate gaze, pupils equal round reactive. TMs canals normal. She is able open her mouth, oropharynx with normal well-hydrated mucosa, tongue normal, dentition good repair. Can see the probable area of incision of her left tonsil, whitish outline from the prior scar. Maybe slight left fullness in comparison to the right tonsil, right is about 1+, left is about 1 to 2+. I do not see any erythema or exudates of the tonsils. Neck is supple, no adenopathy or masses. Lungs are clear, good air entry, no wheezing or crackles. CV regular rate and rhythm, no murmur. Her voice is showing just slight change of a muffled quality. She states it does hurt to talk. Documenting provider has reviewed patient's vital signs: yes Course Course ED Course: Reviewed with patient the only way to tell if there is recurrent tonsillar abscess is to reimage. I have ordered soft tissue neck CT with IV contrast. Will get appropriate labs including screening triple viral COVID/influenza/RSV, strep testing, mono spot. Reevaluation(s) Time of Reevaluation #1: 13:47 Reevaluation #1: Have reviewed with patient the plan for hospitalization, hopeful definitive management with a tonsillectomy in the near future once this is settle down. If the left peritonsillar abscess is not improving with conservative management, she may need urgent incision and drainage as before. She is in agreement with the plan. She is provided a copy of her CT. Consultations Consultation #1: Spoke with Dr. Reyes from ENT. Ultimately, it would be best if she can be managed conservatively, settle infection down and then have definitive tonsillectomy. He believes we should try IV antibiotics initially given that it is only 1.7 cm. The hospitalist will have to call him if he is needed for recurrent incision and drainage. Time: 13:46 Consultation #2: Spoke with the hospitalist Dr. Lainez, he accepts patient. Did review that Dr. Reyes is on-call, plan for trial of IV antibiotics and conservative management to bridge to definitive tonsillectomy in the near future. Time: 13:52 Vital Signs Vital signs: Initial Vital Signs Temperature 98.1 F 06/08/24 12:17 Temperature Source Oral 06/08/24 12:17 Pulse Rate 90 06/08/24 12:17 Respiratory Rate 16 06/08/24 12:17 Blood Pressure 133/77 06/08/24 12:17 Blood Pressure Mean 95 06/08/24 12:17 Blood Pressure Position Sitting 06/08/24 12:17 Pulse Oximetry 98 06/08/24 12:17 Oxygen Delivery Method Room Air 06/08/24 12:17 Vital Signs Temperature 98.1 F 06/08/24 12:17 Pulse Rate 90 06/08/24 12:17 Respiratory Rate 16 06/08/24 12:17 Blood Pressure 133/77 06/08/24 12:17 Pulse Oximetry 98 06/08/24 12:17 Oxygen Delivery Method Room Air 06/08/24 12:17 Temperature 98.5 F 06/08/24 14:42 Pulse Rate 74 06/08/24 14:42 Respiratory Rate 20 06/08/24 14:42 Blood Pressure 141/82 H 06/08/24 14:42 Pulse Oximetry 100 06/08/24 14:42 Oxygen Delivery Method Room Air 06/08/24 14:42 Medications Administered Medications: Generic Name Dose Route Start Last Admin Trade Name Freq PRN Reason Stop Dose Admin Ondansetron HCl 4 mg 06/08/24 14:32 06/08/24 15:04 Ondansetron 2 Mg/Ml Inj IVP 4 mg Q4H PRN Administration Nausea Oxycodone HCl 5 mg 06/08/24 15:06 06/08/24 17:03 Oxycodone 1 Mg/Ml Oral Soln PO 5 mg Q2H PRN Administration Sodium Chloride 5 ml 06/08/24 14:32 06/08/24 15:04 Sodium Chloride 0.9 % (Flush) 10 Ml Syringe IVF 5 ml .FLUSH PRN Administration Discontinued Medications Generic Name Dose Route Start Last Admin Trade Name Freq PRN Reason Stop Dose Admin Ampicillin Sodium/Sulbactam 100 mls @ 200 mls/hr 06/08/24 13:54 06/08/24 15:14 Sodium 3 gm/ Sodium Chloride IVPB 06/08/24 13:55 Infused ONCE ONE Infusion Medical Decision Making Lab Data Lab results reviewed: Yes I reviewed the patient's lab results Labs: Lab Results 06/08/24 Range/Units 12:50 WBC 10.39 (4.50-11.00) K/uL RBC 4.85 (4.00-5.20) m/uL Hgb 10.5 L (12.0-16.0) gm/dL Hct 35.5 (33.0-51.0) % MCV 73 L (80-100) fL MCH 22 L (26-34) pg MCHC 30 L (32-36) gm/dL RDW Coeff of Manoj 20.5 H (11.5-15.5) % Plt Count 319 (140-440) K/uL Neut % (Auto) 77.6 H (42.0-72.0) % Lymph % (Auto) 15.6 L (20-44) % [place] % (Auto) 5.7 (0.0-11.0) % Eos % (Auto) 0.4 (0.0-7.0) % Baso % (Auto) 0.6 (0.0-3.0) % Neut # (Auto) 8.10 H (1.7-7.0) K/uL Lymph # (Auto) 1.60 (0.90-2.90) K/uL [place] # (Auto) 0.60 (0.00-0.90) K/UL Eos # (Auto) 0.04 (0.00-0.50) K/uL Baso # (Auto) 0.06 (0.00-0.30) K/uL Abs Immat Gran (auto) 0.01 (0.00-0.30) K/uL Imm/Tot Granulo (auto) 0.1 % Sodium 137 (135-149) mmol/L Potassium 3.6 (3.6-5.1) mmol/L Chloride 101 (96-114) mmol/L Carbon Dioxide 25 (20-32) mmol/L Anion Gap 11 (7-15) mEq/L BUN 15 (5-24) mg/dL Creatinine 0.8 (0.5-1.5) mg/dL Estimated Creat Clear 108.44 Estimated GFR 108 ml/min Glucose 107 (60-115) mg/dL Calcium 10.0 (8.4-10.6) mg/dL C-Reactive Protein 1.0 (0.5-1.0) mg/dL SARS-CoV-2 (PCR) Negative SARS-CoV-2 (Negative) Monoscreen Negative (Negative) Influenza Type A (PCR) Negative PCR FLU A (Negative) Influenza Type B (PCR) Negative PCR FLU B (Negative) RSV (PCR) Negative PCR RSV (Negative) Group A Strep DNA NOT DETECTED (Not Detectd) Imaging Data CT- Other: Attestation: I have reviewed the pertinent imaging results. Radiologist's impression: Patient: MELY RIVERA Facility:?[facility] Patient ID:?[id number] Site Patient ID:?[id number]. Site :?2004 Study:?CT-ST Neck WITH 66 CC ISOVUE 370-06/08/2024 1:19:17 PM Ordering Physician:?Lul-Beauchamp Sarah Final Report: INDICATION: TONSIL PAIN, EVAL FOR ABSCESS. TECHNIQUE: CT soft tissue of the neck was acquired with IV contrast. 66 mL of Isovue 370 were administered intravenously without reported complication. COMPARISON: CT neck dated 05/11/2024. FINDINGS: Skull base: Unremarkable. Pharynx/Larynx/Trachea: Along the left palatine tonsil, there is a residual or recurrent hypodense focus that measures approximately 1.1 x 0.6 x 1.6 cm (11/18 and ), previously 1.7 x 1.5 x 2.3 cm. There is redemonstrated associated surrounding soft tissue swelling with slight rightward deviation of the oropharyngeal airway, which remains widely patent. Salivary glands: Unremarkable. Thyroid gland: Unremarkable. No significant nodules. Lymph nodes: No lymphadenopathy. Vessels: Unremarkable for age. Bones: There is mild reversal of the cervical lordosis, which may be positional. Otherwise, unremarkable for age. Misc: Mild left inferior maxillary sinus mucosal thickening. Lung apices: Unremarkable. IMPRESSION: There is a residual or recurrent left palatine peritonsillar abscess, which now measures up to 1.6 cm, previously 2.3 cm on 05/10/2024. Please note that all CT scans at this facility use dose modulation, iterative reconstruction, and/or weight-based dosing when appropriate to reduce radiation dose to as low as reasonably achievable. Dictated by Abelardo Cope MD @ 06/08/2024 1:34:50 PM (Electronic Signature) Discharge Plan Discharge Clinical Impression: Peritonsillar abscess Patient Disposition: Admitted As Observation
--- NOTE | 2024-06-08 12:38 | CRLHL7_ITS ---
For Patients: As a result of the Century Cures Act, medical imaging exams and procedure reports are released immediately into your electronic medical record. You may view this report before your referring provider. If you have questions, please contact your health care provider. INDICATION: TONSIL PAIN, EVAL FOR ABSCESS. TECHNIQUE: CT soft tissue of the neck was acquired with IV contrast. 66 mL of Isovue 370 were administered intravenously without reported complication. COMPARISON: CT neck dated 05/11/2024. FINDINGS: Skull base: Unremarkable. Pharynx/Larynx/Trachea: Along the left palatine tonsil, there is a residual or recurrent hypodense focus that measures approximately 1.1 x 0.6 x 1.6 cm (11/18 and ), previously 1.7 x 1.5 x 2.3 cm. There is redemonstrated associated surrounding soft tissue swelling with slight rightward deviation of the oropharyngeal airway, which remains widely patent. Salivary glands: Unremarkable. Thyroid gland: Unremarkable. No significant nodules. Lymph nodes: No lymphadenopathy. Vessels: Unremarkable for age. Bones: There is mild reversal of the cervical lordosis, which may be positional. Otherwise, unremarkable for age. Misc: Mild left inferior maxillary sinus mucosal thickening. Lung apices: Unremarkable. IMPRESSION: There is a residual or recurrent left palatine peritonsillar abscess, which now measures up to 1.6 cm, previously 2.3 cm on 05/10/2024. Please note that all CT scans at this facility use dose modulation, iterative reconstruction, and/or weight-based dosing when appropriate to reduce radiation dose to as low as reasonably achievable. Dictated by Abelardo Cope MD @ 06/08/2024 1:34:50 PM (Electronically Signed)
[2024-06-08 13:03] LABS: Basophils Absolute Auto 0.06 K/uL (0.00-0.30); Basophils Percent Auto 0.6 % (0.0-3.0); Eosinophils Absolute Auto 0.04 K/uL (0.00-0.50); Eosinophils Percent Auto 0.4 % (0.0-7.0); Hematocrit 35.5 % (33.0-51.0); Hemoglobin* 10.5 gm/dL (12.0-16.0); Immature Granulocytes Abs Auto 0.01 K/uL (0.00-0.30); Immature Granulocytes Pct Auto 0.1 %; Lymphocytes Percent Auto 15.6 % (20-44); Mean Corpuscular HGB Conc 30 gm/dL (32-36); Mean Corpuscular Hemoglobin 22 pg (26-34); Mean Corpuscular Volume 73 fL (80-100); Monocytes Percent Auto 5.7 % (0.0-11.0); Neutrophils Percent Auto 77.6 % (42.0-72.0); Platelet Count* 319 K/uL (140-440); RDW Coefficient of Variation % 20.5 % (11.5-15.5); Red Blood Count 4.85 m/uL (4.00-5.20); White Blood Count* 10.39 K/uL (4.50-11.00)
[2024-06-08 13:05] LABS: Slide Review Reflex No
[2024-06-08 13:15] LABS: Chloride* 101 mmol/L (96-114)
[2024-06-08 13:16] LABS: Potassium* 3.6 mmol/L (3.6-5.1); Sodium* 137 mmol/L (135-149)
[2024-06-08 13:18] LABS: Creatinine* 0.8 mg/dL (0.5-1.5); Est. Creatinine Clearance* 108.44; Estimated Glomerular Filt Rate 108 ml/min; Mono Screen* Negative (Negative)
[2024-06-08 13:19] LABS: Anion Gap 11 mEq/L (7-15); Blood Urea Nitrogen* 15 mg/dL (5-24); Carbon Dioxide* 25 mmol/L (20-32); Glucose* 107 mg/dL (60-115)
[2024-06-08 13:31] LABS: Strep A DNA Probe* NOT DETECTED (Not Detectd)
--- OUTSIDE RECORDS SUMMARY | 2024-06-08 13:33 | XMS_ITS | Referral Summary ---
Author Organization [facility] Address [address] [place] [address] Care Team Providers Care Cement Tester Assistant Name Role Phone No Ref-Primary, Physician Primary Care Provider Allergies No known active allergies Medications Medication Sig Dispensed Refills Start Date End Date Status [id number] 0.18/0.215/0.25 MG-25 MCG tablet Take 1 tablet [...] - MICRO NERAL ORDERABLES [facility] Inf. Diseases Diag. Lab [address] [facility], [address] [place] [address] * Chlamydia trachomatis/Neisseria gonorrhoeae by PCR (03/02/2023 11:31 AM CDT) Chlamydia Trachomatis Negative Negative 03/03/2023 12:34 PM CDT [facility] Comment: Negative for C. trachomatis rRNA by manager freelance mediated amplification. A negative result by manager freelance mediated amplification does not preclude the presence of infection because results are dependent on proper and adequate collection, absence of inhibitors and sufficient rRNA to be detected. Neisseria gonorrhoeae Negative Negative 03/03/2023 12:34 PM CDT [facility] Comment:Negative for N. gono rrhoeae rRNA by manager freelance mediated amplification. A negative result by manager freelance mediated amplification does not preclude the presence of C. trachomatis infection because results are dependent on proper and adequate collection, absence of inhibitors and sufficient rRNA to be detected. Urine VOIDED URINE SPECIMEN / Unknown Non-blood Collection / Unknown 03/02/2023 11:31 AM CDT 03/02/2023 2:39 PM CDT Cuca Lorenzo MD LAB - MICRO GENE RAL ORDERABLES [facility] Inf. Diseases Diag. Lab [address] [facility], [address] [place] [address], [facility] [phone] from Last 3 Months or Most Recently Relevant to Health Maintenance Care Teams Cement Tester Assistant Relationship Specialty Start Date End Date No Ref-Primary, Physician PCP - General 08/26/21
--- OUTSIDE RECORDS SUMMARY | 2024-06-08 13:33 | XMS_ITS | Clinical Summary ---
Author Organization [facility] Address [address] [place] [address] Care Team Providers Care Field Tax Auditor Name Role Phone No Ref-Primary, Physician Primary Care Provider Allergies No known active allergies Medications Medication Sig Dispensed Refills Start Date End Date Status [id number] 0.18/0.215/0.25 MG-25 MCG tablet Take 1 tablet [...] Susceptible Delfino Olivares MD LAB - [facility] Inf. Diseases Diag. Lab [address] [facility], [address] [place] [address] * Chlamydia trachomatis/Neisseria gonorrhoeae by PCR (03/02/2023 11:31 AM CDT) Pathologist [facility] Chlamydia Trachomatis Negative Negative 03/03/2023 12:34 PM CDT [facility] Comment: Negative for C. trachomatis rRNA by nut orchardist mediated amplification. A negative result by nut orchardist mediated amplification does not preclude the presence of infection because results are dependent on proper and adequate collection, absence of inhibitors and sufficient rRNA to be detected. Neisseria gonorrhoeae Negative Negative 03/03/2023 12:34 PM CDT [facility] Comment:Negative for N. gono rrhoeae rRNA by nut orchardist mediated amplification. A negative result by nut orchardist mediated amplification does not preclude the presence of C. trachomatis infection because results are dependent on proper and adequate collection, absence of inhibitors and sufficient rRNA to be detected. Urine VOIDED URINE SPECIMEN / Unknown Non-blood Collection / Unknown 03/02/2023 11:31 AM CDT 03/02/2023 2:39 PM CDT Cuca Lorenzo MD LAB - MICRO GENE RAL ORDERABLES [facility] Inf. Diseases Diag. Lab [address] [facility], [address] [place] [address], [place] [phone] from Last 3 Months or Most Recently Relevant to Health Maintenance Care Teams Field Tax Auditor Relationship Specialty Start Date End Date No Ref-Primary, Physician PCP - General 08/26/21
--- OUTSIDE RECORDS SUMMARY | 2024-06-08 13:34 | XMS_ITS | Encounter Summary ---
Author Organization [facility] Address [address] [place] [address] Care Team Providers Care Verification Lead Name Role Phone No Ref-Primary, Physician Primary [...] COVID-19? No / Unsure 08/26/2021 9:59 PM [employer] [employer] documented as of this encounter Plan of Treatment Not on file documented as of this encounter Visit Diagnoses Not on filedocumented in this encounter Additional Health Concerns Infection Onset Date Last Indicated Resolved Time Rule Out COVID-19 08/27/2021 08/27/2021 08/27/2021 2:19 AM [employer] [employer] documented as of this encounter Care Teams Verification Lead Relationship Specialty Start Date End Date No Ref-Primary, Physician PCP - General 08/26/21 documented as of this encounter
[2024-06-08 13:43] LABS: PCR FLU A Negative PCR FLU A (Negative); PCR FLU B Negative PCR FLU B (Negative); PCR RSV Negative PCR RSV (Negative); SARS PCR* Negative SARS-CoV-2 (Negative)
[2024-06-08] MEDS: AMPICILLIN/SULBACTAM 3 GM in 0.9 % SODIUM CHLORIDE Mini-bag 100 ML IVPB ×2 (14:20→21:00)
--- NOTE | 2024-06-08 14:21 | P.IMHP_ITS ---
Hospitalist- H&P: HPI History of Present Illness Date Seen: 06/08/24 Chief complaint: Tonsil pain thinks abscess Narrative: Mikaela Real is a 19 year old female past medical history significant for previous left peritonsillar abscess, most recently drained on 05/11/[address] Magana, otherwise no significant medical history, not on any prescription medications is admitted to the medical floor for IV antibiotic therapy for recurrent left sided abscess. Presented to ED with complaint of sore throat for the past 4-5 days, lateralizing to the left side. Pain with speaking and swallowing. Has been using ibuprofen as needed for pain. Reports subjective fevers with onset of sore throat the beginning of the week but none since. Reports a mild lingering cough from recent previous respiratory infection. Denies headache or dizziness. Denies chest pain or shortness of breath. Denies nausea, vomiting, diarrhea. 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 Review of Systems Narrative: REVIEW OF SYSTEMS: Complete review of systems performed and negative unless otherwise stated in HPI or below. [facility] Surgical History (Updated 06/08/24 @ 15:20 by Argenis Mack PA-C) History of incision and drainage ?Z98.890 - Other specified postprocedural states (ICD-10) Social History What is your current living situation?: I presently have a place to live Problems where you live: no known problems Problems where you live details: na In the past 12 months, utilities in danger of being shut off: no In past 12 months, lack of transportation kept you from medical appts, meetings, work, or getting things needed for daily living: no In the past 12 mos, have been you worried that your food would run out before you had money to buy more?: never true In the past 12 mos, the food you bought just didn't last and you didn't have money to buy more?: never true Highest level of school completed/degree received: some college, no degree Smoking Status: Former smoker Do you use any of these nicotine containing products: Vaping Products Second hand tobacco smoke exposure: No How often do you have a drink containing alcohol: 2-3 times a week How many standard drinks containing alcohol do you have on a typical day: 1 or 2 How often do you have six or more drinks on one occasion: Never AUDIT-C Alcohol total score: 3 Non-prescribed substance use: marijuana (any form) Caffeine: Yes How often does anyone, including family, friends and others, physically hurt you : never How often does anyone, including family, friends and others, insult or talk down to you: never How often does anyone, including family, friends and others, threaten you with harm: never How often does anyone, including family, friends and others, scream or curse at you: never service: No Meds Home Medications and Allergies Home Medications ?Medication ?Instructions ?Recorded ?Confirmed ?Type No Known Home Medications 06/08/24 06/08/24 History Allergies Allergy/AdvReac Type Severity Reaction Status Date / Time No Known Drug Allergies Allergy Verified 05/17/24 09:54 Exam Narrative: Exam Narrative: PHYSICAL EXAM General: Pleasant, conversant, NAD HEENT: Normocephalic, atraumatic, sclera white, EOMI, oral mucosa moist, L tonsillar swelling, erythema, mild lymphadenopathy Cardiovascular: RRR, S1S2. No pitting edema Pulmonary: CTA bilaterally without rhonchi, rales, expiratory wheezes. No dyspnea Neurological: Alert, answering questions appropriately, cranial nerves intact, no focal findings Extremities: No gross joint deformity or swelling. AROMI. Neurovascularly inta ct Skin: Warm, dry. Const: Vital Signs, click to edit/add: Vital Signs - 24 hr 06/08/24 12:17 Temperature 98.1 F Pulse Rate [Pulse Oximeter] 90 Respiratory Rate 16 Blood Pressure [Ri ght Upper Arm] 133/77 Pulse Oximetry 98 Oxygen Delivery Me thod Room Air Hospitalist - H&P: Result Labs Labs: Short CBC 06/08/24 Range/Units 12:50 WBC 10.39 (4.50-11.00) K/uL Hgb 10.5 L (12.0-16.0) gm/dL Hct 35.5 (33.0-51.0) % Plt Count 319 (140-440) K/uL BMP 06/08/24 12:50 Sodium 137 Potassium 3.6 Chloride 101 Carbon Dioxide 25 BUN 15 Creatinine 0.8 Glucose 107 Calcium 10.0 Imaging Soft tissue neck CT: Attestation: I have reviewed the pertinent imaging results. Radiologist's impression: Skull base: Unremarkable. Pharynx/Larynx/Trachea: Along the left palatine tonsil, there is a residual or recurrent hypodense focus that measures approximately 1.1 x 0.6 x 1.6 cm (11/18 and ), previously 1.7 x 1.5 x 2.3 cm. There is redemonstrated associated surrounding soft tissue swelling with slight rightward deviation of the oropharyngeal airway, which remains widely patent. Salivary glands: Unremarkable. Thyroid gland: Unremarkable. No significant nodules. Lymph nodes: No lymphadenopathy. Vessels: Unremarkable for age. Bones: There is mild reversal of the cervical lordosis, which may be positional. Otherwise, unremarkable for age. Misc: Mild left inferior maxillary sinus mucosal thickening. Lung apices: Unremarkable. IMPRESSION: There is a residual or recurrent left palatine peritonsillar abscess, which now measures up to 1.6 cm, previously 2.3 cm on 05/10/2024. Assessment and Plan Assessment and plan (1) Peritonsillar abscess: Problem comment: -CT shows along the left palatine tonsil, there is a residual or recurrent hypodense focus that measures approximately 1.1 x 0.6 x 1.6 cm (11/18 and ), previously 1.7 x 1.5 x 2.3 cm. There is redemonstrated associated surrounding soft tissue swelling with slight rightward deviation of the oropharyngeal airway, which remains widely patent -Afebrile, no leukocytosis, CRP 1.0, triple swab negative, group A strep not detected, monoscreen negative. (EBV Ag IgG 703 and EBV Ag Ab, IgG >600 from 05/09/2024) -ED provider discussed with ENT, Dr. Reyes, recommending admission with conservative management, IV Unasyn, monitoring response, with suggestion for definitive management with a tonsillectomy in the near future -Unasyn 3g q 6 hours -Pain management as needed using oral suspension (does not tolerate swallowing pills in general). Nausea management as needed (either Unasyn or Augmentin made her nauseous in April) -Will need to contact Dr. Reyes if new or worsening symptoms, or no improvement, for possibility of more urgent incision and drainage Status: Acute Total Time Spent Total Time Spent: Total time spent caring for the patient today was 60 minutes. This includes time spent for the visit reviewing the chart, time spent during the visit, time spent after the visit and documentation and planning in coordination of care.
[2024-06-08 14:22] VITALS: BP 107/77; PULSE 87; RESP 16; O2SAT 98
[2024-06-08 14:42] VITALS: BP 141/82; PULSE 74; RESP 16; RESP 20; TEMP 36.9; O2SAT 100; BMI 20.2
[2024-06-08 15:00] VITALS: RESP 16
[2024-06-08] MEDS: SODIUM CHLORIDE 0.9 % (FLUSH) 10 ML SYRINGE 5 ML IVF ×2 (15:04→20:59)
[2024-06-08] MEDS: ONDANSETRON 2 MG/ML inj 4 MG IVP (15:04)
--- NOTE | 2024-06-08 15:16 | PC.NURSE ---
Pt arrived to floor at 1422. Alert, oriented and vitally stable. Pain rated 8/10, MD aware and orders to be determined. Friends at bedside.
[2024-06-08] MEDS: OXYCODONE 1 MG/ML ORAL SOLN 5 MG PO ×3 (17:03→22:22)
[2024-06-08 19:00] VITALS: BP 106/83; PULSE 96; RESP 16; TEMP 36.8; O2SAT 100
[2024-06-08] MEDS: IBUPROFEN 100 MG/5 ML SUSP 600 MG PO (20:31)
[2024-06-08] MEDS: METHYLPREDNISOLONE SOD SUCC 40 MG/ML IVP (20:58)
[2024-06-08 22:24] VITALS: BP 118/67; PULSE 74; RESP 16; TEMP 36.8; O2SAT 96
[2024-06-09 03:00] VITALS: BP 105/76; PULSE 61; RESP 16; TEMP 36.5; O2SAT 100
[2024-06-09] MEDS: ACETAMINOPHEN 160 MG/5 ML CUP 1000 MG PO (03:15)
[2024-06-09] MEDS: AMPICILLIN/SULBACTAM 3 GM in 0.9 % SODIUM CHLORIDE Mini-bag 100 ML IVPB ×3 (03:18→13:37)
[2024-06-09] MEDS: OXYCODONE 1 MG/ML ORAL SOLN 5 MG PO (03:21)
--- NOTE | 2024-06-09 06:20 | PC.NURSE ---
End of shift [id number]: Pt AxOx4. Pt indep. IV R hand SL. LS CTA. VSS on RA. Pt rated pain 6-9/10 throughout the shift. Core Feeder utilized PRN medication, see MAR. Pt noted relief. Pt denies SOB, CP, dizziness. Pt had slight nausea during the middle of the night with pain meds, lead technical writer utilized a soft snack and relief was noted. Pt is tolerating fluids well with soft foods. Cold foods seem to help the pain in the L tonsil area. Pt is continent of the bladder and bowels. Pt appears resting with friend in the room, call light in reach. Continuing to monitor pain.
[2024-06-09 06:22] LABS: Hematocrit 35.6 % (33.0-51.0); Hemoglobin* 10.4 gm/dL (12.0-16.0); Mean Corpuscular HGB Conc 29 gm/dL (32-36); Mean Corpuscular Hemoglobin 22 pg (26-34); Mean Corpuscular Volume 74 fL (80-100); Platelet Count* 327 K/uL (140-440); Red Blood Count 4.83 m/uL (4.00-5.20); White Blood Count* 12.88 K/uL (4.50-11.00)
[2024-06-09 06:23] LABS: Slide Review Reflex No
[2024-06-09 06:33] LABS: Chloride* 101 mmol/L (96-114)
[2024-06-09 06:34] LABS: Potassium* 4.9 mmol/L (3.6-5.1); Sodium* 136 mmol/L (135-149)
[2024-06-09 06:36] LABS: Anion Gap 11 mEq/L (7-15); Carbon Dioxide* 24 mmol/L (20-32); Creatinine* 0.9 mg/dL (0.5-1.5); Est. Creatinine Clearance* 95.75; Estimated Glomerular Filt Rate 94 ml/min
[2024-06-09 06:37] LABS: Blood Urea Nitrogen* 12 mg/dL (5-24); Calcium* 10.1 mg/dL (8.4-10.6); Glucose* 172 mg/dL (60-115)
[2024-06-09 07:30] VITALS: BP 112/73; PULSE 68; RESP 16; TEMP 36.9; O2SAT 99
[2024-06-09] MEDS: SODIUM CHLORIDE 0.9 % (FLUSH) 10 ML SYRINGE 5 ML IVF ×2 (09:10→13:37)
[2024-06-09] MEDS: prednisoLONE 15 MG/5ML SOLN 30 MG PO (09:22)
[2024-06-09] MEDS: IBUPROFEN 100 MG/5 ML SUSP 600 MG PO (09:29)
[2024-06-09 09:34] LABS: Ferritin* 8.5 ng/mL (6.24-137.0)
[2024-06-09 09:56] LABS: Hemoglobin A1C* 5.5 % (0-5.6)
[2024-06-09 10:27] LABS: Thyroid Stimulating Hormone* 0.478 uIU/mL (0.270-4.20)
[2024-06-09 11:00] VITALS: BP 116/79; PULSE 54; RESP 18; TEMP 36.7; O2SAT 98
--- NOTE | 2024-06-09 11:52 | PM.DS1 ---
DS: Providers Provider Date Seen: 06/09/24 Date of admission: 06/08/24 15:04 Primary care physician: Not a Local Provider Admitting Clinician: Brandon Lainez MD Consults: ENT by phone Attending Physician on discharge: Angelina Llanos MD Date of Discharge: 06/09/24 DS: Diagnosis Discharge Diagnosis (1) Peritonsillar abscess: Status: Acute Problem details: - recurrent - admission CT revealed L peritonsillar abscess (1.6cm in greatest diameter) with surrounding soft tissue edema, patent airway - IV abx per ENT, close f/u for definitive tonsillectomy - treated with IV Unasyn x24 hours, home on Augmentin with close ENT f/u (2) Microcytic anemia: Status: Acute Problem details: - chronic, source unclear (patient notably has amenorrhea) - we discussed the importance of nutrition for overall health, resumption of menses. 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 White on campus DS: Summary Hospital Course Hospital Course: Mikaela is a [employer] student who presented to the hospital with recurrent peritonsillar abscess on 06/08/2024. Imaging revealed recurrent abscess with patent airway; ENT consulted by phone and recommended IV antibiotics and monitoring. Received Unasyn and steroids x2. Patient significantly improved on hospital day 1, tolerating po intake. Discharge home on oral antibiotics after 24 hours of IV coverage, with close ENT follow-up for definitive tonsillectomy (this is her 3rd recurrence). Notably also found to have microcytic anemia (details above). Discharge on iron supplementation with close f/u. Parents updated with plan of care by phone. Status at Discharge Functional status at discharge: independent ambulation Overall status at discharge: patient is progressing back to baseline Time Spent with Patient Time attestation: Total time spent providing and/or coordinating discharge services: Time spent: Greater than 30 minutes Specific discharge activities: Medication reconciliation, plan of care updates Exam Narrative: Exam Narrative: GEN: Alert and oriented, nontoxic HEENT: EOMIs bilaterally, no scleral icterus. Oropharynx patent, 1-2+ L tonsillar hypertrophy without exudate or bleeding. No trismus. No neck masses, full ROM. CV: RRR, No concerning murmurs R: LCTA bilaterally without concerning wheezing, air movement adequate Ext: wwp, no concerning edema Skin: No concerning skin lesions or rashes on exposed skin Neuro: No focal deficits Psych: Appropriate Const: Vital Signs, click to edit/add: Vital Signs - 24 hr 06/08/24 12:17 06/08/24 14:22 06/08/24 14:42 Temperature 98.1 F 98.5 F Pulse Rate [Pulse Oximeter] 90 87 74 Respiratory Rate 16 16 20 Blood Pressure [Ri ght Arm] 141/82 H Blood Pressure [Ri ght Upper Arm] 133/77 107/77 Pulse Oximetry 98 98 100 Oxygen Delivery Me thod Room Air Room Air Room Air 06/08/24 14:42 06/08/24 15:00 06/08/24 19:00 Temperature 98.2 F Pulse Rate [Pulse Oximeter] 96 Respiratory Rate 16 16 16 Blood Pressure [Ri ght Arm] 106/83 Blood Pressure [Ri ght Upper Arm] Pulse Oximetry 100 100 Oxygen Delivery Me thod Room Air Room Air 06/08/24 22:24 06/09/24 03:00 06/09/24 07:30 Temperature 98.2 F 97.7 F 98.5 F Pulse Rate [Pulse Oximeter] 74 61 68 Respiratory Rate 16 16 16 Blood Pressure [Ri ght Arm] 118/67 105/76 112/73 Blood Pressure [Ri ght Upper Arm] Pulse Oximetry 96 100 99 Oxygen Delivery Me thod Room Air Room Air Room Air 06/09/24 07:30 Temperature Pulse Rate [Pulse Oximeter] 68 Respiratory Rate 16 Blood Pressure [Ri ght Arm] Blood Pressure [Ri ght Upper Arm] Pulse Oximetry Oxygen Delivery Me thod DS: Data Data Completed and Pending Labs on day of discharge: Labs from last 24 hours 06/09/24 06/09/24 06/09/24 09:08 08:25 05:43 WBC 12.88 H RBC 4.83 Hgb 10.4 L Hct 35.6 MCV 74 L MCH 22 L MCHC 29 L RDW Coeff of Manoj Plt Count 327 Neut % (Auto) Lymph % (Auto) Perry % (Auto) Eos % (Auto) Baso % (Auto) Neut # (Auto) Lymph # (Auto) Perry # (Auto) Eos # (Auto) Baso # (Auto) Abs Immat Gran (auto) Imm/Tot Granulo (auto) Sodium 136 Potassium 4.9 Chloride 101 Carbon Dioxide 24 Anion Gap 11 BUN 12 Creatinine 0.9 Estimated Creat Clear 95.75 Estimated GFR 94 Glucose 172 H Hemoglobin A1c 5.5 Calcium 10.1 Ferritin 8.5 C-Reactive Protein TSH 0.478 SARS-CoV-2 (PCR) Monoscreen Influenza Type A (PCR) Influenza Type B (PCR) RSV (PCR) Group A Strep DNA Lab Acknowledgement Test Added Test Added 06/08/24 12:50 WBC 10.39 RBC 4.85 Hgb 10.5 L Hct 35.5 MCV 73 L MCH 22 L MCHC 30 L RDW Coeff of Manoj 20.5 H Plt Count 319 Neut % (Auto) 77.6 H Lymph % (Auto) 15.6 L Perry % (Auto) 5.7 Eos % (Auto) 0.4 Baso % (Auto) 0.6 Neut # (Auto) 8.10 H Lymph # (Auto) 1.60 Perry # (Auto) 0.60 Eos # (Auto) 0.04 Baso # (Auto) 0.06 Abs Immat Gran (auto) 0.01 Imm/Tot Granulo (auto) 0.1 Sodium 137 Potassium 3.6 Chloride 101 Carbon Dioxide 25 Anion Gap 11 BUN 15 Creatinine 0.8 Estimated Creat Clear 108.44 Estimated GFR 108 Glucose 107 Hemoglobin A1c Calcium 10.0 Ferritin C-Reactive Protein 1.0 TSH SARS-CoV-2 (PCR) Negative SARS-CoV-2 Monoscreen Negative Influenza Type A (PCR) Negative PCR FLU A Influenza Type B (PCR) Negative PCR FLU B RSV (PCR) Negative PCR RSV Group A Strep DNA NOT DETECTED Lab Acknowledgement Discharge Plan Discharge Disposition: Home, Self-Care Date of Admission: 06/08/24 15:04 Attending Provider on Discharge: Angelina Llanos Primary Care Provider: Provider,Not a Local Condition: Improved Anticipated Discharge Date/Time: 06/09/24 11:36 Discharge Medications: New oxycodone 5 mg/5 mL Solution 5 mg PO Q6H PRNQty: 20 0RF amoxicillin-pot clavulanate 875-125 mg tablet 1 tab PO BID Qty: 10 0RF amoxicillin-pot clavulanate [Augmentin] 250-62.5 mg/5 mL suspension for reconstitution 17.5 ml PO BID 7 Days Qty: 245 0RF Rx Instructions: Please fill THIS Rx. Dispense 875mg Amoxicillin BID (patient unable to tolerate pills). Discharge Orders: Discharge Order (Routine); Ordered 06/09/24 Ordered By: Angelina Llanos Patient Education: Amoxicillin/Clavulanate Potassium (By mouth) (Augmentin, Augmentin..., Oxycodone, Slow Release (By mouth), Peritonsillar Abscess (DC), Iron Rich Diet (DC) Additional Instructions: Liquid antibiotics and pain meds sent to [facility]. Any worsening symptoms, breathing/swallowing difficulties, etc require a repeat ER visit. Your ferritin is 8 (!) so we'd recommend an iron supplement twice/day. Recheck this with Cindy. You can practice next week when you feel back to baseline. Activity Level: Activity as Tolerated Discharge Diet: High Protein/High Calorie Diet Detail: IRON supplementation, high protein. Check out Azalea Denton's cookbook for female athletes for ideas. Follow Up Appointments: Vinnie White MD [Staff Physician] - (see Dr. White on campus ([facility]) for ferritin f/u (patient to schedule this)) Provider,Not a Local [Primary Care Provider] - Delfino Magana MD [Staff Physician] - 06/13/24 10:45 am ([facility] with Dr. Magana to discuss/schedule tonsillectomy ) Forms: [facility] Info Instructions
--- NOTE | 2024-06-09 14:26 | PC.NURSE ---
Discharged: Pt alert, oriented and vitally stable. Up in room independently and on regular diet, tolerates well. Pain rating 4-6/10, prn ibuprofen given, pt stated improvement. Discharge instruction given to pt and friends, topics including follow up, medications and symptoms worsening. Pt discharged home with friends at 1423.
== END 2024-06-09 14:23 | disposition home or self-care (01) | DRG 113 ==
LOC: ED 13:57 → MEDSURG 14:24
PROVIDERS: Family Medicine; Physician Assistant; Admitting Provider Internal Medicine; Emergency Provider Family Medicine; Visit Provider Family Medicine
DX: J36 Peritonsillar abscess (principal); Z98.890 Other specified postprocedural states; D50.9 Iron deficiency anemia, unspecified
CPT/HCPCS: 36415; 70491; 80048; 82728; 83036; 84443; 85025; 85027; 86140; 86308; 87631; 87651; 99284; 99285; A9270; J0295; J2405; J2919; J7510; Q9967

== ENCOUNTER 2024-06-10 19:01 | Inpatient (IN) | payer BC, SELFPAY ==
[2024-06-10 19:22] VITALS: BP 121/74; PULSE 81; RESP 16; TEMP 37.2; O2SAT 98; BMI 19.9
--- NOTE | 2024-06-10 20:04 | ED_ITS ---
HPI - General Adult General Chief complaint: Dental/Oral/Mouth Injury/Pain Stated complaint: recurring abscess in tonsil Time Seen by Provider: 06/10/24 20:04 History of Present Illness HPI narrative: Abscess in tonsils, has had before. Breathing is ok , reports difficulty in swallowing. Pain rated 8/10 . Started Wednesday. Were admitted and discharged on Wednesday. Was told to come back if gets worse. 19-year-old and woman presenting to the emergency department with concern recurrent tonsillar abscess. Was admitted for drainage on May 11 of this year. Hoping to avoid surgery until school is over considering that she had missed so much school ready. Seen again 2 days ago with recurrence of pain. Admitted overnight and discharged yesterday with Augmentin and steroids. Is not having trouble breathing but increased pain with swallowing. She would joan reciate some pain medicine when asked. CT imaging 2 days ago measured a left- sided peritonsillar abscess of 1.6 cm. No fever. Presents with mom. Further information today is that she actually had peritonsillar abscess occur her senior year of high school as well. TONSIL PAIN, EVAL FOR ABSCESS. TECHNIQUE: CT soft tissue of the neck was acquired with IV contrast. 66 mL of Isovue 370 were administered intravenously without reported complication. COMPARISON: CT neck dated 05/11/2024. FINDINGS: Skull base: Unremarkable. Pharynx/Larynx/Trachea: Along the left palatine tonsil, there is a residual or recurrent hypodense focus that measures approximately 1.1 x 0.6 x 1.6 cm (11/18 and ), previously 1.7 x 1.5 x 2.3 cm. There is redemonstrated associated surrounding soft tissue swelling with slight rightward deviation of the oropharyngeal airway, which remains widely patent. Salivary glands: Unremarkable. Thyroid gland: Unremarkable. No significant nodules. Lymph nodes: No lymphadenopathy. Vessels: Unremarkable for age. Bones: There is mild reversal of the cervical lordosis, which may be positional. Otherwise, unremarkable for age. Misc: Mild left inferior maxillary sinus mucosal thickening. Lung apices: Unremarkable. IMPRESSION: There is a residual or recurrent left palatine peritonsillar abscess, which now measures up to 1.6 cm, previously 2.3 cm on 05/10/2024. Related Data Previous Rx's ?Medication ?Instructions ?Recorded amoxicillin 250 mg-potassium 17.5 ml PO BID 7 days #245 mL 06/09/24 clavulanate 62.5 mg/5 mL oral suspension (Augmentin) oxycodone 5 mg/5 mL oral solution 5 mg (5 mL) PO Q4H PRN Pain #100 mL 06/12/24 Allergies Allergy/AdvReac Type Severity Reaction Status Date / Time No Known Drug Allergies Allergy Verified 05/17/24 09:54 Review of Systems Status of ROS: Reports: 6 or more systems reviewed and unremarkable except as noted in History and below PFSH PFS Surgical History History of incision and drainage ?Z98.890 - Other specified postprocedural states (ICD-10) Social History What is your current living situation?: I presently have a place to live Problems where you live: no known problems Problems where you live details: na In the past 12 months, utilities in danger of being shut off: no In past 12 months, lack of transportation kept you from medical appts, meetings, work, or getting things needed for daily living: no In the past 12 mos, have been you worried that your food would run out before you had money to buy more?: never true In the past 12 mos, the food you bought just didn't last and you didn't have money to buy more?: never true Highest level of school completed/degree received: some college, no degree Smoking Status: Former smoker Do you use any of these nicotine containing products: Vaping Products Second hand tobacco smoke exposure: No How often do you have a drink containing alcohol: 2-3 times a week Alcohol type: beer How many standard drinks containing alcohol do you have on a typical day: 1 or 2 How often do you have six or more drinks on one occasion: Never AUDIT-C Alcohol total score: 3 Non-prescribed substance use: marijuana (any form) Caffeine: Yes How often does anyone, including family, friends and others, physically hurt you : never How often does anyone, including family, friends and others, insult or talk down to you: never How often does anyone, including family, friends and others, threaten you with harm: never How often does anyone, including family, friends and others, scream or curse at you: never service: No Exam Narrative: Exam Narrative: Calm. NAD. Hot potato voice. Breathing easily. No stridor. Clearly side hu rts to swallow but managing secretions. Oropharynx with moderate swelling in the area of the left side tonsil. Small exudate. Mild erythema. Lungs appear clear. Heart in regular rate and rhythm Const: Vital Signs, click to edit/add: Vital Signs - 24 hr 06/10/24 19:22 Temperature 98.9 F Pulse Rate [Left P ulse Oximeter] 81 Respiratory Rate 16 Blood Pressure [Ri ght Upper Arm] 121/74 Pulse Oximetry 98 Oxygen Delivery Me thod Room Air Documenting provider has reviewed patient's vital signs: yes Course Vital Signs Vital signs: Initial Vital Signs Temperature 98.9 F 06/10/24 19:22 Temperature Source Temporal Artery Scan 06/10/24 19:22 Pulse Rate 81 06/10/24 19:22 Pulse Rhythm Regular 06/10/24 19:22 Respiratory Rate 16 06/10/24 19:22 Blood Pressure 121/74 06/10/24 19:22 Blood Pressure Mean 89 06/10/24 19:22 Blood Pressure Position Sitting 06/10/24 19:22 Pulse Oximetry 98 06/10/24 19:22 Oxygen Delivery Method Room Air 06/10/24 19:22 Vital Signs Temperature 98.9 F 06/10/24 19:22 Pulse Rate 81 06/10/24 19:22 Respiratory Rate 16 06/10/24 19:22 Blood Pressure 121/74 06/10/24 19:22 Pulse Oximetry 98 06/10/24 19:22 Oxygen Delivery Method Room Air 06/10/24 19:22 Temperature 98.0 F 06/12/24 11:53 Pulse Rate 52 L 06/12/24 13:30 Respiratory Rate 16 06/12/24 13:30 Blood Pressure 127/80 06/12/24 13:30 Pulse Oximetry 96 06/12/24 13:30 Oxygen Delivery Method Room Air 06/12/24 13:30 Medications Administered Medications: Discontinued Medications Generic Name Dose Route Start Last Admin Trade Name Freq PRN Reason Stop Dose Admin Acetaminophen 650 mg 06/12/24 12:23 06/12/24 12:00 Acetaminophen 160 Mg/5 Ml Cup PO 650 mg Q4H PRN Administration Bacitracin 1 applic 06/12/24 11:26 06/12/24 11:27 Bacitracin Ointment Bulk Tube TOPICAL 06/12/24 11:27 1 applic ONCE ONE Administration Dexamethasone 4 mg 06/11/24 06:00 06/11/24 06:07 Dexamethasone 4 Mg/Ml Vial IV 06/11/24 06:01 4 mg DAILY ONE Administration Dexamethasone 4 mg 06/11/24 09:11 06/11/24 09:51 Dexamethasone 4 Mg/Ml Vial IV 06/11/24 09:12 4 mg ONCE ONE Administration Epinephrine HCl 1 mg 06/12/24 10:40 06/12/24 10:40 Epinephrine 1 Mg/Ml Inj IRRIGATION 06/12/24 10:41 1 mg ONCE ONE Administration Fentanyl 50 mcg 06/12/24 10:57 06/12/24 11:30 Fentanyl 100 Mcg/2 Ml Inj IVP 50 mcg Q5M PRN Administration Pain Sodium Chloride 500 mls @ 500 mls/hr 06/10/24 20:20 06/10/24 23:22 0.9 % Sodium Chloride 500 Ml IV 06/10/24 21:19 Infused .Q1H ONE Infusion Clindamycin Phosphate 600 mg in 50 mls @ 100 mls/hr 06/10/24 20:42 06/10/24 23:00 Clindamycin 600 Mg/50 Ml-D5w IVPB 06/10/24 21:11 Infused ONCE ONE Infusion Ampicillin Sodium/Sulbactam 100 mls @ 200 mls/hr 06/11/24 00:00 06/12/24 06:17 Sodium 3 gm/ Sodium Chloride IVPB 200 mls/hr Q6H OZZIE Administration Lactated Ringer's 1,000 mls @ 100 mls/hr 06/12/24 11:00 06/12/24 13:42 Lactated Ringers 1000 Ml IV Infused .Q10H OZZIE Infusion Ibuprofen 400 - 600 mg 06/12/24 12:25 06/12/24 12:00 Ibuprofen 100 Mg/5 Ml Susp PO 400 mg Q6H PRN Administration Pain Ketorolac Tromethamine 30 mg 06/10/24 20:20 06/10/24 20:42 Ketorolac 30 Mg/Ml Inj IVP 06/10/24 20:21 Not Given ONCE ONE Methylprednisolone Sodium Succinate 80 mg 06/10/24 20:41 06/10/24 21:11 Methylprednisolone Sod Succ 40 Mg/Ml IVP 06/10/24 20:42 80 mg ONCE ONE Administration Morphine Sulfate 4 mg 06/10/24 20:42 06/10/24 21:11 Morphine 4 Mg/Ml Inj IVP 06/10/24 20:43 4 mg ONCE ONE Administration Morphine Sulfate 2 mg 06/10/24 23:05 06/12/24 03:07 Morphine 4 Mg/Ml Inj IVP 2 mg Q4H PRN Administration Oxycodone HCl 5 - 10 mg 06/12/24 12:20 06/12/24 12:00 Oxycodone 1 Mg/Ml Oral Soln PO 5 mg Q4H PRN Administration Pain Sodium Chloride 5 ml 06/10/24 23:05 06/12/24 00:06 Sodium Chloride 0.9 % (Flush) 10 Ml Syringe IVF 5 ml .FLUSH PRN Administration Sodium Chloride 5 ml 06/11/24 09:00 06/11/24 23:00 Sodium Chloride 0.9 % (Flush) 10 Ml Syringe IVF 5 ml BID OZZIE Administration Medical Decision Making MDM Narrative Medical decision making narrative: Will need to discuss with ENT next step in cares. Initiate IV fluids and pain meds. They are hoping for tonsillectomy Discussed with ENT. Plan is to admit. We will be giving dose of steroid and changing to clindamycin IV. Cool off overnight and anticipate tonsillectomy in the morning. Dr. Reyes did discuss concerns/risks/benefits with Mikaela and her mom. Pending recommended repeat imaging at this point. Technique: Contrast-enhanced CT the neck multiplanar reconstruction utilizing 66 cc Isovue 370 iodinated intravenous contrast. Comparison: CT soft tissue neck dated 06/08/2024. Findings: Slight interval increase in size of the left palatine peritonsillar abscess in comparison to 06/08/2024, now measuring 2.0 x 1.0 x 2.4 cm. Similar mild rightward deviation oropharyngeal airway which remains patent. Similarly enlarged submandibular and upper cervical lymph nodes which are likely reactive. Normal parotid submandibular glands. Unremarkable thyroid. The lung apices are clear. The major vascular structures are within normal limits. The imaged intracranial structures and orbits are unremarkable. Impression: 1. Slight interval increase in size of the left peritonsillar abscess since 06/08/2024. 2. Similar mild rightward deviation the airway which remains patent. 3. Similar enlargement of multiple cervical lymph nodes, which are likely reactive. Medical Records Medical records reviewed: Yes I reviewed the patient's medical records Lab Data Lab results reviewed: Yes I reviewed the patient's lab results Labs: Lab Results 06/10/24 06/11/24 Range/Units 20:55 05:54 WBC 12.13 H 10.63 (4.50-11.00) K/uL RBC 4.84 4.59 (4.00-5.20) m/uL Hgb 10.4 L 10.0 L (12.0-16.0) gm/dL Hct 35.6 33.9 (33.0-51.0) % MCV 74 L 74 L (80-100) fL MCH 22 L 22 L (26-34) pg MCHC 29 L 30 L (32-36) gm/dL RDW Coeff of Manoj 20.7 H 20.7 H (11.5-15.5) % Plt Count 318 327 (140-440) K/uL Neut % (Auto) 73.1 H 91.8 H (42.0-72.0) % Lymph % (Auto) 20.0 6.9 L (20-44) % Chaffee % (Auto) 6.3 0.9 (0.0-11.0) % Eos % (Auto) 0.2 0.0 (0.0-7.0) % Baso % (Auto) 0.3 0.2 (0.0-3.0) % Neut # (Auto) 8.90 H 9.80 H (1.7-7.0) K/uL Lymph # (Auto) 2.40 0.70 L (0.90-2.90) K/uL Chaffee # (Auto) 0.80 0.10 (0.00-0.90) K/UL Eos # (Auto) 0.00 0.00 (0.00-0.50) K/uL Baso # (Auto) 0.00 0.02 (0.00-0.30) K/uL Abs Immat Gran (auto) 0.00 0.02 (0.00-0.30) K/uL Imm/Tot Granulo (auto) 0.1 0.2 % Diff Slide Review Acceptable Review (Acceptable) INR 1.12 H (0.91-1.10) APTT 28 (23-33) Seconds Sodium 138 (135-149) mmol/L Potassium 4.3 (3.6-5.1) mmol/L Chloride 102 (96-114) mmol/L Carbon Dioxide 26 (20-32) mmol/L Anion Gap 10 (7-15) mEq/L BUN 14 (5-24) mg/dL Creatinine 0.8 (0.5-1.5) mg/dL Estimated Creat Clear 108.44 Estimated GFR 108 ml/min Glucose 135 H (60-115) mg/dL Calcium 9.6 (8.4-10.6) mg/dL C-Reactive Protein 1.9 H (0.5-1.0) mg/dL Discharge Plan Discharge Clinical Impression: Peritonsillar abscess Patient Disposition: Admitted As Observation Activity Level: No strenuous activity Diet Detail: SOFT diet
--- OUTSIDE RECORDS SUMMARY | 2024-06-10 20:37 | XMS_ITS | Clinical Summary ---
Author Organization [facility] Address [address] [place] [address] Care Team Providers Care Cell Lead Name Role Phone No Ref-Primary, Physician Primary Care Provider Allergies No known active allergies Medications Medication Sig Dispensed Refills Start Date End Date Status [id number] 0.18/0.215/0.25 MG-25 MCG tablet Take 1 tablet [...] Susceptible Delfino Olivares MD [facility] Inf. Diseases Diag. Lab [address] [facility], [address] [place] [address] * Chlamydia trachomatis/Neisseria gonorrhoeae by PCR (03/02/2023 11:31 AM CDT) Pathologist [facility] Chlamydia Trachomatis Negative Negative 03/03/2023 12:34 PM CDT [facility] Comment: Negative for C. trachomatis rRNA by supervisor assembly stock mediated amplification. A negative result by supervisor assembly stock mediated amplification does not preclude the presence of infection because results are dependent on proper and adequate collection, absence of inhibitors and sufficient rRNA to be detected. Neisseria gonorrhoeae Negative Negative 03/03/2023 12:34 PM CDT [facility] Comment:Negative for N. gono rrhoeae rRNA by supervisor assembly stock mediated amplification. A negative result by supervisor assembly stock mediated amplification does not preclude the presence of C. trachomatis infection because results are dependent on proper and adequate collection, absence of inhibitors and sufficient rRNA to be detected. Urine VOIDED URINE SPECIMEN / Unknown Non-blood Collection / Unknown 03/02/2023 11:31 AM CDT 03/02/2023 2:39 PM CDT Cuca Lorenzo MD LAB - MICRO GENE RAL ORDERABLES [facility] Inf. Diseases Diag. Lab [address] [facility], [address] [place] [address], [place] [phone] from Last 3 Months or Most Recently Relevant to Health Maintenance Care Teams Cell Lead Relationship Specialty Start Date End Date No Ref-Primary, Physician PCP - General 08/26/21
--- OUTSIDE RECORDS SUMMARY | 2024-06-10 20:37 | XMS_ITS | Referral Summary ---
Author Organization [facility] Address [address] [place] [address] Care Team Providers Care Transportation Supervisor Name Role Phone No Ref-Primary, Physician Primary Care Provider Allergies No known active allergies Medications Medication Sig Dispensed Refills Start Date End Date Status [id number] 0.18/0.215/0.25 MG-25 MCG tablet Take 1 tablet [...] - MICRO NERAL ORDERABLES [facility] Inf. Diseases Diag. Lab [address] [facility], [address] [place] [address] * Chlamydia trachomatis/Neisseria gonorrhoeae by PCR (03/02/2023 11:31 AM CDT) Chlamydia Trachomatis Negative Negative 03/03/2023 12:34 PM CDT [facility] Comment: Negative for C. trachomatis rRNA by stadium attendant mediated amplification. A negative result by stadium attendant mediated amplification does not preclude the presence of infection because results are dependent on proper and adequate collection, absence of inhibitors and sufficient rRNA to be detected. Neisseria gonorrhoeae Negative Negative 03/03/2023 12:34 PM CDT [facility] Comment:Negative for N. gono rrhoeae rRNA by stadium attendant mediated amplification. A negative result by stadium attendant mediated amplification does not preclude the presence of C. trachomatis infection because results are dependent on proper and adequate collection, absence of inhibitors and sufficient rRNA to be detected. Urine VOIDED URINE SPECIMEN / Unknown Non-blood Collection / Unknown 03/02/2023 11:31 AM CDT 03/02/2023 2:39 PM CDT Cuca Lorenzo MD LAB - MICRO GENE RAL ORDERABLES [facility] Inf. Diseases Diag. Lab [address] [facility], [address] [place] [address], [facility] [phone] from Last 3 Months or Most Recently Relevant to Health Maintenance Care Teams Transportation Supervisor Relationship Specialty Start Date End Date No Ref-Primary, Physician PCP - General 08/26/21
--- OUTSIDE RECORDS SUMMARY | 2024-06-10 20:37 | XMS_ITS | Encounter Summary ---
Author Organization [facility] Address [address] [place] [address] Care Team Providers Care Electric Tool Repairer Name Role Phone No Ref-Primary, Physician Primary [...] COVID-19? 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
--- NOTE | 2024-06-10 20:59 | CRLHL7_ITS ---
For Patients: As a result of the Cures Act, medical imaging exams and procedure reports are released immediately into your electronic medical record. You may view this report before your referring provider. If you have questions, please contact your health care provider. Indication: Tonsillar abscess. Technique: Contrast-enhanced CT the neck multiplanar reconstruction utilizing 66 cc Isovue 370 iodinated intravenous contrast. Comparison: CT soft tissue neck dated 06/08/2024. Findings: Slight interval increase in size of the left palatine peritonsillar abscess in comparison to 06/08/2024, now measuring 2.0 x 1.0 x 2.4 cm. Similar mild rightward deviation oropharyngeal airway which remains patent. Similarly enlarged submandibular and upper cervical lymph nodes which are likely reactive. Normal parotid submandibular glands. Unremarkable thyroid. The lung apices are clear. The major vascular structures are within normal limits. The imaged intracranial structures and orbits are unremarkable. Impression: 1. Slight interval increase in size of the left peritonsillar abscess since 06/08/2024. 2. Similar mild rightward deviation the airway which remains patent. 3. Similar enlargement of multiple cervical lymph nodes, which are likely reactive. Please note that all CT scans at this facility use dose modulation, iterative reconstruction, and/or weight-based dosing when appropriate to reduce radiation dose to as low as reasonably achievable. Dictated by Parth Glass MD @ 06/10/2024 10:51:36 PM (Electronically Signed)
[2024-06-10 21:03] LABS: Basophils Percent Auto 0.3 % (0.0-3.0); Eosinophils Percent Auto 0.2 % (0.0-7.0); Hematocrit 35.6 % (33.0-51.0); Hemoglobin* 10.4 gm/dL (12.0-16.0); Immature Granulocytes Pct Auto 0.1 %; Mean Corpuscular HGB Conc 29 gm/dL (32-36); Mean Corpuscular Hemoglobin 22 pg (26-34); Mean Corpuscular Volume 74 fL (80-100); Monocytes Percent Auto 6.3 % (0.0-11.0); Neutrophils Percent Auto 73.1 % (42.0-72.0); Platelet Count* 318 K/uL (140-440); RDW Coefficient of Variation % 20.7 % (11.5-15.5); Red Blood Count 4.84 m/uL (4.00-5.20); White Blood Count* 12.13 K/uL (4.50-11.00)
[2024-06-10 21:04] LABS: Slide Review Reflex No
[2024-06-10] MEDS: MORPHINE 4 MG/ML INJ IVP (21:11)
[2024-06-10] MEDS: METHYLPREDNISOLONE SOD SUCC 40 MG/ML 80 MG IVP (21:11)
[2024-06-10 21:18] VITALS: PULSE 78; O2SAT 95
[2024-06-10 21:20] VITALS: RESP 16
[2024-06-10 21:23] LABS: C Reactive Protein* 1.9 mg/dL (0.5-1.0)
[2024-06-10] MEDS: 0.9 % SODIUM CHLORIDE 500 ML 500 ML IV (22:08)
--- OUTSIDE RECORDS SUMMARY | 2024-06-10 22:08 | XMS_ITS | Encounter Summary ---
Author Organization [facility] Address [address] [place] [address] Care Team Providers Care Scraper Tender Name Role Phone No Ref-Primary, Physician Primary [...] COVID-19? No / Unsure 08/26/2021 9:59 PM ASSISTANT EDUCATION DIRECTOR documented as of this encounter Plan of Treatment Not on file documented as of this encounter Visit Diagnoses Not on filedocumented in this encounter Additional Health Concerns Infection Onset Date Last Indicated Resolved Time Rule Out COVID-19 08/27/2021 08/27/2021 08/27/2021 2:19 AM ASSISTANT EDUCATION DIRECTOR documented as of this encounter Care Teams Scraper Tender Relationship Specialty Start Date End Date No Ref-Primary, Physician PCP - General 08/26/21 documented as of this encounter
--- OUTSIDE RECORDS SUMMARY | 2024-06-10 22:08 | XMS_ITS | Referral Summary ---
Author Organization [facility] Address [address] [place] [address] Care Team Providers Care Advanced Research Programs Director Name Role Phone No Ref-Primary, Physician Primary Care Provider Allergies No known active allergies Medications Medication Sig Dispensed Refills Start Date End Date Status [id number] 0.18/0.215/0.25 MG-25 MCG tablet Take 1 tablet [...] - MICRO NERAL ORDERABLES [facility] Inf. Diseases Diag. Lab [address] [facility] [place] [address] * Chlamydia trachomatis/Neisseria gonorrhoeae by PCR (03/02/2023 11:31 AM CDT) Chlamydia Trachomatis Negative Negative 03/03/2023 12:34 PM CDT [facility] Comment: Negative for C. trachomatis rRNA by strategic development manager mediated amplification. A negative result by strategic development manager mediated amplification does not preclude the presence of infection because results are dependent on proper and adequate collection, absence of inhibitors and sufficient rRNA to be detected. Neisseria gonorrhoeae Negative Negative 03/03/2023 12:34 PM CDT [facility] Comment:Negative for N. gono rrhoeae rRNA by strategic development manager mediated amplification. A negative result by strategic development manager mediated amplification does not preclude the presence of C. trachomatis infection because results are dependent on proper and adequate collection, absence of inhibitors and sufficient rRNA to be detected. Urine VOIDED URINE SPECIMEN / Unknown Non-blood Collection / Unknown 03/02/2023 11:31 AM CDT 03/02/2023 2:39 PM CDT Cuca Lorenzo MD LAB - MICRO GENE RAL ORDERABLES [facility] Inf. Diseases Diag. Lab [address] [facility] [place] [address], [facility] [phone] from Last 3 Months or Most Recently Relevant to Health Maintenance Care Teams Advanced Research Programs Director Relationship Specialty Start Date End Date No Ref-Primary, Physician PCP - General 08/26/21
--- OUTSIDE RECORDS SUMMARY | 2024-06-10 22:08 | XMS_ITS | Clinical Summary ---
Author Organization [facility] Address [address] [place] [address] Care Team Providers Care Structural Shop Helper Name Role Phone No Ref-Primary, Physician Primary Care Provider Allergies No known active allergies Medications Medication Sig Dispensed Refills Start Date End Date Status [id number] 0.18/0.215/0.25 MG-25 MCG tablet Take 1 tablet [...] Delfino Olivares MD [facility] Inf. Diseases Diag. Lab [address] [facility], [address] [place] [address] * Chlamydia trachomatis/Neisseria gonorrhoeae by PCR (03/02/2023 11:31 AM CDT) Pathologist [facility] Chlamydia Trachomatis Negative Negative 03/03/2023 12:34 PM CDT [facility] Comment: Negative for C. trachomatis rRNA by trenching machine operator mediated amplification. A negative result by trenching machine operator mediated amplification does not preclude the presence of infection because results are dependent on proper and adequate collection, absence of inhibitors and sufficient rRNA to be detected. Neisseria gonorrhoeae Negative Negative 03/03/2023 12:34 PM CDT [facility] Comment:Negative for N. gono rrhoeae rRNA by trenching machine operator mediated amplification. A negative result by trenching machine operator mediated amplification does not preclude the presence of C. trachomatis infection because results are dependent on proper and adequate collection, absence of inhibitors and sufficient rRNA to be detected. Urine VOIDED URINE SPECIMEN / Unknown Non-blood Collection / Unknown 03/02/2023 11:31 AM CDT 03/02/2023 2:39 PM CDT Cuca Lorenzo MD LAB - MICRO GENE RAL ORDERABLES [facility] Inf. Diseases Diag. Lab [address] [facility], [address] [place] [address], [place] [phone] from Last 3 Months or Most Recently Relevant to Health Maintenance Care Teams Structural Shop Helper Relationship Specialty Start Date End Date No Ref-Primary, Physician PCP - General 08/26/21
[2024-06-10] MEDS: CLINDAMYCIN 600 MG/50 ML-D5W 600 MG/50 ML PIGGYBACK 100 MG IVPB (22:09)
[2024-06-10 22:22] VITALS: BP 123/93; PULSE 86; RESP 16; O2SAT 99; BMI 19.9
--- NOTE | 2024-06-10 22:39 | P.IMHP_ITS ---
Hospitalist- H&P: HPI History of Present Illness Date Seen: 06/10/24 Chief complaint: recurring abscess in tonsil Narrative: Mikaela Real is a 19 year old female without a significant past medical history except for recurrent peritonsillar abscess, which was seen by ED about a month ago & her previous left peritonsillar abscess was recently drained on 05/11/[address] Magana but at that time patient deferred tonsillectomy surgery because she did not want to miss school. In addition, the patient was admitted for 1 night observation 2 days ago and was discharged on Augmentin and steroids, but she came back to the ED today due to change in her voice and difficulty swallowing. Patient mentions that she had to spit his saliva but denies any drooling or difficulty breathing. CT w IV cont done 2 days ago showed a residual or recurrent left palatine peritonsillar abscess, which now measures up to 1.6 cm, previously 2.3 cm on 05/10/2024. At the ED, the patient was hemodynamically stable, with no tripod positioning and no labored breathing. WBC about 12, increased CRP. ED provider discussed with ENT who suggested admitting her and anticipate tonsillectomy in the morning. Dr. Reyes did discuss concerns/risks/benefits with the pt & family. Review of Systems Status of ROS: Reports: 6 or more systems reviewed and unremarkable except as noted in History and below [facility] Surgical History History of incision and drainage ?Z98.890 - Other specified postprocedural states (ICD-10) Social History What is your current living situation?: I presently have a place to live Problems where you live: no known problems Problems where you live details: na In the past 12 months, utilities in danger of being shut off: no In past 12 months, lack of transportation kept you from medical appts, meetings, work, or getting things needed for daily living: no In the past 12 mos, have been you worried that your food would run out before you had money to buy more?: never true In the past 12 mos, the food you bought just didn't last and you didn't have money to buy more?: never true Highest level of school completed/degree received: some college, no degree Smoking Status: Former smoker Do you use any of these nicotine containing products: Vaping Products Second hand tobacco smoke exposure: No How often do you have a drink containing alcohol: 2-3 times a week How many standard drinks containing alcohol do you have on a typical day: 1 or 2 How often do you have six or more drinks on one occasion: Never AUDIT-C Alcohol total score: 3 Non-prescribed substance use: marijuana (any form) Caffeine: Yes How often does anyone, including family, friends and others, physically hurt you : never How often does anyone, including family, friends and others, insult or talk down to you: never How often does anyone, including family, friends and others, threaten you with harm: never How often does anyone, including family, friends and others, scream or curse at you: never service: No Meds Home Medications and Allergies Allergies Allergy/AdvReac Type Severity Reaction Status Date / Time No Known Drug Allergies Allergy Verified 05/17/24 09:54 Exam Narrative: Exam Narrative: Physical exam GENERAL: Comfortable, no acute distress. Breathing normally no stridor no tripod positioning noted, no drooling. HEAD AND NECK: Atraumatic, normocephalic. Bilateral peritonsillar swelling with whitish plaques over her tonsils. CARDIOVASCULAR: RRR. Normal S1, S2. No murmurs. RESPIRATORY: Clear to auscultation B/L. Good air entry B/L. No wheezes or rhonchi. GASTROINTESTINAL: Not distended, not tender to palpation. NEUROLOGY: Alert, awake, oriented X 3. PSYCH: Normal mood, normal affect. Const: Vital Signs, click to edit/add: Vital Signs - 24 hr 06/10/24 19:22 06/10/24 21:18 06/10/24 21:20 Temperature 98.9 F Pulse Rate 78 Pulse Rate [Left P ulse Oximeter] 81 Respiratory Rate 16 16 Blood Pressure [Ri ght Upper Arm] 121/74 Pulse Oximetry 98 95 Oxygen Delivery Me thod Room Air Hospitalist - H&P: Result Labs Labs: Short CBC 06/10/24 Range/Units 20:55 WBC 12.13 H (4.50-11.00) K/uL Hgb 10.4 L (12.0-16.0) gm/dL Hct 35.6 (33.0-51.0) % Plt Count 318 (140-440) K/uL Imaging CT- Other: Radiologist's impression: Date of Service: 06/08/24 Procedure(s): CT soft tissue neck w con Accession Number(s): [id number] cc: Provider,Not a Local; Sarah Parker M.D.~ For Patients: As a result of the Century Cures Act, medical imaging exams and procedure reports are released immediately into your electronic medical record. You may view this report before your referring provider. If you have questions, please contact your health care provider. INDICATION: TONSIL PAIN, EVAL FOR ABSCESS. TECHNIQUE: CT soft tissue of the neck was acquired with IV contrast. 66 mL of Isovue 370 were administered intravenously without reported complication. COMPARISON: CT neck dated 05/11/2024. FINDINGS: Skull base: Unremarkable. Pharynx/Larynx/Trachea: Along the left palatine tonsil, there is a residual or recurrent hypodense focus that measures approximately 1.1 x 0.6 x 1.6 cm (11/18 and ), previously 1.7 x 1.5 x 2.3 cm. There is redemonstrated associated surrounding soft tissue swelling with slight rightward deviation of the oropharyngeal airway, which remains widely patent. Salivary glands: Unremarkable. Thyroid gland: Unremarkable. No significant nodules. Lymph nodes: No lymphadenopathy. Vessels: Unremarkable for age. Bones: There is mild reversal of the cervical lordosis, which may be positional. Otherwise, unremarkable for age. Misc: Mild left inferior maxillary sinus mucosal thickening. Lung apices: Unremarkable. IMPRESSION: There is a residual or recurrent left palatine peritonsillar abscess, which now measures up to 1.6 cm, previously 2.3 cm on 05/10/2024. Please note that all CT scans at this facility use dose modulation, iterative reconstruction, and/or weight-based dosing when appropriate to reduce radiation dose to as low as reasonably achievable. Dictated by Abelardo Cope MD @ 06/08/2024 1:34:50 PM Assessment and Plan Assessment and plan (1) Recurrent peritonsillar abscess: Problem comment: -Abscess Culture (05/11/2024) grew beta-hemolytic Streptococcus species A and Haemophilus parainfluenza A both are sensitive to Augmentin and ampicillin. -Repeat CT soft tissue of the neck with IV contrast ordered -Close monitoring of patient clinically with low threshold for intubation to protect the airway if patient's airway is affected (example the tripod position, drooling, stridor, etc.) -Treat peritonsillar abscess with antibiotics as per culture and sensitivity report back in April. Ampicillin-sulbactam 3 g IV every 6 hours. -dexamethasone to decrease edema and pain in the nasopharynx area. -pain management. Patient received IV fluids at the ED. -ENT consult ordered. 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 White on campus Status: Acute Total Time Spent Total Time Spent: Time spent: Today I spent 75 minutes seeing the patient, discussing the patient with ER staff, reviewing Expanse and EPIC notes/diagnostics, discussing the care plan with our care time that includes pharmacy, RT, nursing and documenting my impressions and plan in the medical record.
[2024-06-10] MEDS: AMPICILLIN/SULBACTAM 3 GM in 0.9 % SODIUM CHLORIDE Mini-bag 100 ML IVPB (23:55)
[2024-06-11] MEDS: MORPHINE 4 MG/ML INJ 2 MG IVP ×4 (00:01→23:00)
[2024-06-11] MEDS: SODIUM CHLORIDE 0.9 % (FLUSH) 10 ML SYRINGE 5 ML IVF ×6 (00:02→23:00)
[2024-06-11 03:57] VITALS: BP 106/66; PULSE 88; RESP 14; TEMP 36.6; O2SAT 97
[2024-06-11] MEDS: AMPICILLIN/SULBACTAM 3 GM in 0.9 % SODIUM CHLORIDE Mini-bag 100 ML IVPB ×3 (06:00→17:47)
[2024-06-11] MEDS: dexAMETHasone 4 MG/ML VIAL IV ×2 (06:07→09:51)
[2024-06-11 06:46] LABS: Chloride* 102 mmol/L (96-114); Sodium* 138 mmol/L (135-149)
[2024-06-11 06:47] LABS: Potassium* 4.3 mmol/L (3.6-5.1)
[2024-06-11 06:49] LABS: Anion Gap 10 mEq/L (7-15); Carbon Dioxide* 26 mmol/L (20-32); Creatinine* 0.8 mg/dL (0.5-1.5); Est. Creatinine Clearance* 108.44; Estimated Glomerular Filt Rate 108 ml/min
[2024-06-11 06:50] LABS: Blood Urea Nitrogen* 14 mg/dL (5-24); Calcium* 9.6 mg/dL (8.4-10.6); Glucose* 135 mg/dL (60-115)
[2024-06-11 06:53] LABS: INR 1.12 (0.91-1.10); Prothrombin Time 15.1 Seconds
[2024-06-11 06:54] LABS: Basophils Absolute Auto 0.02 K/uL (0.00-0.30); Basophils Percent Auto 0.2 % (0.0-3.0); Hematocrit 33.9 % (33.0-51.0); Immature Granulocytes Abs Auto 0.02 K/uL (0.00-0.30); Immature Granulocytes Pct Auto 0.2 %; Lymphocytes Percent Auto 6.9 % (20-44); Mean Corpuscular HGB Conc 30 gm/dL (32-36); Mean Corpuscular Hemoglobin 22 pg (26-34); Mean Corpuscular Volume 74 fL (80-100); Monocytes Percent Auto 0.9 % (0.0-11.0); Neutrophils Percent Auto 91.8 % (42.0-72.0); Partial Thromboplastin Time* 28 Seconds (23-33); Platelet Count* 327 K/uL (140-440); RDW Coefficient of Variation % 20.7 % (11.5-15.5); Red Blood Count 4.59 m/uL (4.00-5.20); White Blood Count* 10.63 K/uL (4.50-11.00)
[2024-06-11 07:02] LABS: Slide Review Reflex Yes
--- NOTE | 2024-06-11 07:19 | PC.NURSE ---
Pt is alert and oriented x3. Pt reports 6-7/10 pain in throat, pain managed with PRN medication. Pt denies SOB, difficulties breathing, and N/V. Pt is up Ind in room, tolerating an NPO diet since 0000. ? ??
[2024-06-11 08:00] VITALS: BP 106/72; PULSE 69; RESP 14; TEMP 36.9; O2SAT 95
--- NOTE | 2024-06-11 09:13 | P.IMPN_ITS ---
Progress Note: A&P Assessment and plan (1) Recurrent peritonsillar abscess: Problem details: - Abscess Culture (05/16) grew beta-hemolytic Streptococcus species A and Haemophilus parainfluenza A both are sensitive to Ampicillin - continue IV Unasyn (06/10), IV Decadron daily - Dr. 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 She was discharged on 06/09 on oral Augmentin, then symptoms worsened 06/10. Repeat CT revealed slight interval increase in abscess size (2.0 x 1.0 x 2.4cm, previously 1.6cm in greatest diameter). Re-admitted for steroids and IV Unasyn; ENT consulted and plans on surgical intervention tomorrow. This morning, patient is feeling a little better, still has sore throat. Able to speak, handling secretions well, no trismus. Exam Narrative: Exam Narrative: GEN: Alert and oriented, nontoxic, sitting comfortably in bed HEENT: EOMIs bilaterally, no scleral icterus. Oropharynx moist, clear patent, no trismus. L tonsillar hypertrophy noted. + L sided cervical adenopathy CV: RRR, No concerning murmurs R: Breathing and speaking normally. LCTA bilaterally Ext: wwp, no concerning edema Skin: No concerning skin lesions or rashes on exposed skin Neuro: Nonfocal Psych: Appropriate Const: Vital Signs, click to edit/add: Vital Signs - 24 hr 06/10/24 19:22 06/10/24 21:18 06/10/24 21:20 Temperature 98.9 F Pulse Rate 78 Pulse Rate [Left P ulse Oximeter] 81 Pulse Rate [Pulse Oximeter] Respiratory Rate 16 16 Blood Pressure [Ri ght Arm] Blood Pressure [Ri ght Upper Arm] 121/74 Pulse Oximetry 98 95 Oxygen Delivery Me thod Room Air 06/10/24 22:22 06/10/24 22:22 06/11/24 03:57 Temperature 97.8 F Pulse Rate Pulse Rate [Left P ulse Oximeter] Pulse Rate [Pulse Oximeter] 86 88 Respiratory Rate 16 16 14 Blood Pressure [Ri ght Arm] 123/93 H 106/66 Blood Pressure [Ri ght Upper Arm] Pulse Oximetry 99 99 97 Oxygen Delivery Me thod Room Air Room Air Room Air 06/11/24 08:00 Temperature 98.4 F Pulse Rate Pulse Rate [Left P ulse Oximeter] Pulse Rate [Pulse Oximeter] 69 Respiratory Rate 14 Blood Pressure [Ri ght Arm] 106/72 Blood Pressure [Ri ght Upper Arm] Pulse Oximetry 95 Oxygen Delivery Me thod Room Air Labs Labs: Laboratory Results - last 24 hr 06/10/24 06/11/24 20:55 05:54 WBC 12.13 H 10.63 RBC 4.84 4.59 Hgb 10.4 L 10.0 L Hct 35.6 33.9 MCV 74 L 74 L MCH 22 L 22 L MCHC 29 L 30 L RDW Coeff of Manoj 20.7 H 20.7 H Plt Count 318 327 Neut % (Auto) 73.1 H 91.8 H Lymph % (Auto) 20.0 6.9 L Ray % (Auto) 6.3 0.9 Eos % (Auto) 0.2 0.0 Baso % (Auto) 0.3 0.2 Neut # (Auto) 8.90 H 9.80 H Lymph # (Auto) 2.40 0.70 L Ray # (Auto) 0.80 0.10 Eos # (Auto) 0.00 0.00 Baso # (Auto) 0.00 0.02 Abs Immat Gran (auto) 0.00 0.02 Imm/Tot Granulo (auto) 0.1 0.2 INR 1.12 H APTT 28 Sodium 138 Potassium 4.3 Chloride 102 Carbon Dioxide 26 Anion Gap 10 BUN 14 Creatinine 0.8 Estimated Creat Clear 108.44 Estimated GFR 108 Glucose 135 H Calcium 9.6 C-Reactive Protein 1.9 H Slight interval increase in size of the left palatine peritonsillar abscess in comparison to 06/08/2024, now measuring 2.0 x 1.0 x 2.4 cm. Similar mild rightward deviation oropharyngeal airway which remains patent. Similarly enlarged submandibular and upper cervical lymph nodes which are likely reactive. Normal parotid submandibular glands. Unremarkable thyroid. The lung apices are clear. The major vascular structures are within normal limits. The imaged intracranial structures and orbits are unremarkable. Impression: 1. Slight interval increase in size of the left peritonsillar abscess since 06/08/2024. 2. Similar mild rightward deviation the airway which remains patent. 3. Similar enlargement of multiple cervical lymph nodes, which are likely reactive.
[2024-06-11 09:14] LABS: Slide Review Acceptable Review (Acceptable)
[2024-06-11 11:06] VITALS: BP 108/76; PULSE 83; RESP 16; TEMP 37.1; O2SAT 99
[2024-06-11 15:42] VITALS: BP 105/66; PULSE 75; RESP 18; TEMP 36.8; O2SAT 96
--- NOTE | 2024-06-11 17:25 | PC.NURSE ---
Shift Summary: patient pleasant and cooperative. Up independently walking in halls. Vitals stable and WNL. Informed patient of plan for surgery tomorrow and NPO at midnight. Needed PRN morphine x1 for pain. Tolerating regular diet/soft foods, denies nausea, continues to have pain with swallowing.
[2024-06-11 20:30] VITALS: BP 113/75; PULSE 64; RESP 16; TEMP 36.8; O2SAT 99
[2024-06-11 23:04] VITALS: BP 103/73; PULSE 75; RESP 16; TEMP 36.6; O2SAT 97
[2024-06-12] VITALS (16 sets, daily range): BP systolic 104–143; BP diastolic 61–96; PULSE 48–61; RESP 11–18; TEMP 36.3–36.7; O2SAT 92–100
[2024-06-12] MEDS: AMPICILLIN/SULBACTAM 3 GM in 0.9 % SODIUM CHLORIDE Mini-bag 100 ML IVPB ×2 (00:06→06:17)
[2024-06-12] MEDS: SODIUM CHLORIDE 0.9 % (FLUSH) 10 ML SYRINGE 5 ML IVF (00:06)
[2024-06-12] MEDS: MORPHINE 4 MG/ML INJ 2 MG IVP (03:07)
--- NOTE | 2024-06-12 07:00 | PC.NURSE ---
Pt is alert and oriented x3. Pt reports 6-7/10 pain in throat, pain managed with PRN medication. Pt?reports mood changes such as feeling agitated, depression and some restlessness ?feeling on edge?, updated MD Jasmine and discussed possibility of medication side effects, no new orders given, continue plan of care, discussed with pt about continuing to monitor mood and reporting changes.?Pt is up Ind in room, tolerating an NPO diet since 0000.
[2024-06-12] MEDS: LACTATED RINGERS 1000 ML 1,000 ML 100 ML IV (10:18)
[2024-06-12] MEDS: EPINEPHrine 1 MG/ML inj IRRIGATION (10:40)
--- NOTE | 2024-06-12 10:46 | SUR.OPER ---
PATIENT QUESTIONS ANSWERED SATISFACTORILY PREOPERATIVELY. PATIENT BROUGHT TO OR 41 PER CART. Patient positioned supine on OR #4 bed. Perioperative team wrapped arms bilaterally at patient side with drawsheet.
--- NOTE | 2024-06-12 11:09 | W.ANESCHARGE ---
Anesthesia Charges Start Date/Time Anesthesia Start Date: 06/12/24 Anesthesia Start Time: 10:18 Stop Date/Time Anesthesia Stop Date: 06/12/24 Anesthesia Stop Time: 11:22 Summary Emergency: MDA
--- NOTE | 2024-06-12 11:19 | W.ANESCHARGE ---
Anesthesia Charges Start Date/Time Anesthesia Start Date: 06/12/24 Anesthesia Start Time: 10:18 Stop Date/Time Anesthesia Stop Date: 06/12/24 Anesthesia Stop Time: 11:22 Summary Emergency: TECHNOLOGY PROGRAM MANAGER
[2024-06-12] MEDS: fentaNYL 100 MCG/2 ML inj 50 MCG IVP ×2 (11:20→11:30)
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
[2024-06-12] MEDS: BACITRACIN OINTMENT BULK TUBE 1 APPLIC TOPICAL (11:27)
--- NOTE | 2024-06-12 11:47 | PC.NURSE ---
The patient was wheeled down to [facility] for possible tonsillectomy. The patient showered prior to surgery and reported 5/10 pain in her throat. The patients mom and friends were at the bedside this AM offering support. IV patent to [facility] ROOT. All belongings were sent with the patients mom. Sally CABRERA BSN
[2024-06-12] MEDS: OXYCODONE 1 MG/ML ORAL SOLN PO (12:00)
[2024-06-12] MEDS: ACETAMINOPHEN 160 MG/5 ML CUP 650 MG PO (12:00)
[2024-06-12] MEDS: IBUPROFEN 100 MG/5 ML SUSP PO (12:00)
--- NOTE | 2024-06-12 12:38 | PM.DS1 ---
DS: Providers Provider Date Seen: 06/12/24 Date of admission: 06/11/24 12:54 Primary care physician: Not a Local Provider Admitting Clinician: Lavinia Huff MD Attending Physician on discharge: Angelina Llanos MD Date of Discharge: 06/12/24 DS: Diagnosis Discharge Diagnosis (1) Recurrent peritonsillar abscess: Status: Acute Problem details: - Abscess Culture (05/16) grew beta-hemolytic Streptococcus species A and Haemophilus parainfluenza A both are sensitive to Ampicillin - continue IV Unasyn (06/10), IV Decadron daily - Dr. 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 She was placed on IV antibiotics and steroids; had definitive tonsillectomy with Dr. Reyes of ENT on 06/12/2024. There were no anesthetic or operative complications; she will discharge home with close ENT follow-up postoperatively. Other notable history above, quiescent. Routine PCP follow-up. Status at Discharge Functional status at discharge: independent ambulation Overall status at discharge: patient is progressing back to baseline Time Spent with Patient Time attestation: Total time spent providing and/or coordinating discharge services: Time spent: Less than 30 minutes Exam Narrative: Exam Narrative: Patient seen preoperatively Sitting comfortably in bed, nontoxic Persistent left tonsillar hypertrophy without trismus on exam Pulse palpates as regular rate and rhythm Const: Vital Signs, click to edit/add: Vital Signs - 24 hr 06/11/24 15:42 06/11/24 20:30 06/11/24 23:04 Temperature 98.2 F 98.2 F 97.9 F Pulse Rate Pulse Rate [Pulse Oximeter] 75 64 75 Respiratory Rate 18 16 16 Blood Pressure Blood Pressure [Ri ght Arm] 105/66 113/75 103/73 Pulse Oximetry 96 99 97 Oxygen Delivery Me thod Room Air Room Air Room Air 06/12/24 03:05 06/12/24 08:24 06/12/24 11:17 Temperature 97.6 F 97.4 F L Pulse Rate 61 Pulse Rate [Pulse Oximeter] 55 L 58 L Respiratory Rate 14 18 12 Blood Pressure 139/94 H Blood Pressure [Ri ght Arm] 104/64 111/61 Pulse Oximetry 99 100 96 Oxygen Delivery Me thod Room Air Room Air Room Air 06/12/24 11:20 06/12/24 11:25 06/12/24 11:30 Temperature Pulse Rate 60 59 L 53 L Pulse Rate [Pulse Oximeter] Respiratory Rate 14 12 14 Blood Pressure 143/96 H 134/95 H 130/89 Blood Pressure [Ri ght Arm] Pulse Oximetry 95 96 95 Oxygen Delivery Me thod 06/12/24 11:35 06/12/24 11:40 06/12/24 11:45 Temperature Pulse Rate 52 L 57 L 53 L Pulse Rate [Pulse Oximeter] Respiratory Rate 12 11 L 12 Blood Pressure 127/84 125/87 125/86 Blood Pressure [Ri ght Arm] Pulse Oximetry 94 92 95 Oxygen Delivery Me thod 06/12/24 11:53 06/12/24 12:00 06/12/24 12:15 Temperature 98.0 F Pulse Rate 56 L 52 L Pulse Rate [Pulse Oximeter] Respiratory Rate 16 16 16 Blood Pressure 130/78 124/84 129/93 H Blood Pressure [Ri ght Arm] Pulse Oximetry 98 98 98 Oxygen Delivery Me thod Room Air Room Air Room Air Discharge Plan Discharge Disposition: Home, Self-Care Date of Admission: 06/11/24 12:54 Attending Provider on Discharge: Angelina Llanos Consulting Providers: Jhoan Reyes Primary Care Provider: Provider,Not a Local Condition: Stable Anticipated Discharge Date/Time: 06/12/24 14:00 Discharge Medications: New oxycodone 5 mg/5 mL Solution 5 mg PO Q4H PRN (Reason: Pain) Qty: 100 0RF Continued amoxicillin-pot clavulanate [Augmentin] 250-62.5 mg/5 mL suspension for reconstitution 17.5 ml PO BID 7 Days Qty: 245 0RF Rx Instructions: Please fill THIS Rx. Dispense 875mg Amoxicillin BID (patient unable to tolerate pills). Discontinued oxycodone 5 mg/5 mL Solution 5 mg PO Q6H PRNQty: 20 0RF amoxicillin-pot clavulanate 875-125 mg tablet 1 tab PO BID Qty: 10 0RF Discharge Orders: Discharge Order (Routine); Ordered 06/12/24 Ordered By: Angelina Llanos Patient Education: Care Instructions After Tonsillectomy and Adenoidectomy Additional Instructions: Finish the liquid antibiotics that you have from last hospitalization. Liquid Oxycodone sent to [facility] in [place], try to use this sparingly. You should be taking 1000mg of Tylenol every 8 hours around the clock. As long as you're not having any oozing/bleeding, you can also take 600mg of Ibuprofen every 8 hours as needed. Activity Level: No strenuous activity Diet Detail: SOFT diet Follow Up Appointments: Delfino Magana MD [Staff Physician] - 06/27/24 9:00 am ([facility]) [facility]
--- NOTE | 2024-06-12 12:59 | PM.PROC ---
Procedure Note Date Seen: 06/12/24 Date of procedure: 06/12/24 Will [facility] bill your pro fee for this procedure?: Yes Pre-op diagnosis: Recurrent left peritonsillar abscess, recurrent tonsillitis Post-op diagnosis: same Procedure: Patient has a history of peritonsillar abscess in high school. This did not require drainage at that time and resolved with antibiotic treatment. One month ago she had recurrent left peritonsillar abscess and underwent incision and drainage under general anesthesia. She did well until this past weekend with onset of recurrent left peritonsillar abscess. She was hospitalized and treated with IV antibiotics and scheduled for incision and drainage with possible tonsillectomy today. Discussed procedure in detail with goals, risks and potential complications. Discussed difficulty of tonsillectomy with abscess and potential increased risk of bleeding. Discussed postoperative recovery. She elected to proceed. Discussed likely outpatient nature of procedure. Procedure Description: After adequate general endotracheal anesthesia, patient was prepped and draped in the supine position. Mouth gag was inserted and the oropharynx was exposed. She had mild erythema of the tonsils bilateral with obvious previous healing incision and drainage site on the left side. There was minimal peritonsillar swelling. The superior tonsil was grasped with the Brown-Adson forceps and with gentle medial traction I was able to identify the junction of the anterior and superior pillars. This was incised with the needlepoint cautery and the capsule plane was identified. This was then dissected along the capsule with a spatula tip cautery and the bipolar cautery. This was extended down and the abscess cavity was entered through the mid fossa muscle. A small to moderate amount of pus was suctioned clear. Using the spatula tip cautery, I was able to separate the muscle from the tonsil. The capsule in this area was dissected free without difficulty. With further dissection inferiorly along the capsule, the remainder of the tonsil was removed with the BiZact tonsillectomy device. Hemostasis was completed in the fossa with bipolar cautery. Attention was then turned to the right tonsil. With gentle medial traction the junction of the anterior and posterior pillar was incised with the BiZact tonsillectomy device and the tonsil capsular plane was identified. Tonsil was then dissected free without difficulty with a combination of the BiZact tonsillectomy device and bipolar cautery. Hemostasis was achieved with BiZact and bipolar cautery. Total estimated blood loss was minimal. Patient tolerated procedure well, was awakened and extubated in the operating room. After extubation, patient was noted to have an apparent cautery burn of the oral mucosa inside the right oral commissure. This did not extend to the skin. This was discussed with patient and mother postoperatively. Anesthesia: GETA Surgeon: Jhoan Reyes Estimated blood loss (mL): 1.0 Pathology: specimen obtained, sent to pathology Condition: stable Disposition: same day
--- NOTE | 2024-06-13 12:21 | SUR.PHASEII ---
Post Op Call Note 06/13/24 1235: Spoke with mother, Caro. The standard post op questions asked by the RN and answers provided by the mother are listed here. Current condition of patient - ok. Do you have any of the following conditions? Fever/chills - no. Nausea / Vomiting - no. Uncontrolled pain - no. Do you have any questions about your prescriptions? - No- mother said patient is taking her medications. Patient is taking medications around the clock. Do you have any questions about your discharge instructions? - No - Dr. Reyes and mother had spoken earlier this morning 06/13. RN encouraged mother to reach out to Dr. Reyes if she or patient have any further questions. Do you have any questions about follow up appointments or how to contact the surgeon? - No. Mother has Dr. Reyes phone number. Mother stated patient is taking sips of fluids, was able to tolerate a protein drink, popsicle, and gatorade last night. RN encouraged mother to have patient continue with her fluid intake. Mother stated that patient had some difficulty opening her mouth. RN advised patient' mom to keep a thin layer of bacitracin on corner of mouth as advised by Dr. Reyes. Mother said she and patient were following Dr. Reyes advice and keeping bacitracin on the corner of the mouth.
--- NOTE | 2024-06-14 07:58 | SUR.PHASEII ---
06/12/24 Verbal instruction given to pt and mom regarding application of bacitracin sent home for cautery burn. instructions given by Dr Reyes and RN to apply a thin layer on outer burn area to keep moist.
== END 2024-06-12 14:08 | disposition home or self-care (01) | DRG 97 ==
LOC: ED 21:23 → MEDSURG 22:07
PROVIDERS: Otolaryngology; Admitting Provider Student in an Organized Health Care Education/Training Program; Emergency Provider Family Medicine; Visit Provider Student in an Organized Health Care Education/Training Program
DX: J36 Peritonsillar abscess (principal); B95.0 Streptococcus, group A, as the cause of diseases classified elsewhere; B96.3 Hemophilus influenzae [H. influenzae] as the cause of diseases classified elsewhere; D50.9 Iron deficiency anemia, unspecified; F17.290 Nicotine dependence, other tobacco product, uncomplicated
CPT/HCPCS: 00170; 36415; 70491; 80048; 85025; 85610; 85730; 86140; 88304; 94761; 99140; 99284; A9270; G0378; J0171; J0295; J0330; J0736; J1100; J2270; J2405; J2704; J2710; J2919; J3010; J7030; J7120; Q9967

== ENCOUNTER 2024-07-02 12:33 | Emergency (ER) | payer BC, SELFPAY ==
--- NOTE | 2024-07-02 12:40 | ED_ITS ---
HPI - General Adult General Date Seen: 07/02/24 Chief complaint: Sore Throat Stated complaint: Pst op sore throat Time Seen by Provider: 07/02/24 12:35 History of Present Illness HPI narrative: 19-year-old female presenting to the ER today for sore throat. Per medical record she was seen by ENT, Dr. Magana in April and had a drainage of a peritonsillar abscess in the OR. She had recurrent abscess and came back to the ER on June 08. ER visit at that time showed a recurrent abscess along the left palatine tonsil measuring 1.1 x 0.[address] scan had shown a larger fluid collection measuring 1.7 x 1.5 x 2.3. During that ER stay, consultation with ENT recommended conservative management with IV antibiotics to settle down the infection and abscess and then follow-up after infection is improved for definitive tonsillectomy. However it sounds like she ultimately had ongoing trouble with peritonsillar abscess so she underwent Tonsillectomy on 06/[address] Reyes. She had been recovering well. She had her postop visit and was doing well at that time. Yesterday she began to feel mildly ill without any specific symptoms. This morning she woke up she has a sore throat, she feels like that her tonsils are a bit red in her uvula is red. She is not running a fever. Temperature was 100.5? F here in the ER. She has a mild headache and some body aches. No nausea or vomiting. No diarrhea. No rash. Not much cough. No nasal congestion Related Data Previous Rx's ?Medication ?Instructions ?Recorded amoxicillin 250 mg-potassium 17.5 ml PO BID 7 days #245 mL 06/09/24 clavulanate 62.5 mg/5 mL oral suspension (Augmentin) oxycodone 5 mg/5 mL oral solution 5 mg (5 mL) PO Q4H PRN Pain #100 mL 06/12/24 amoxicillin 400 mg-potassium 10 ml PO BID 7 days #140 mL 07/02/24 clavulanate 57 mg/5 mL oral suspension Allergies Allergy/AdvReac Type Severity Reaction Status Date / Time No Known Drug Allergies Allergy Verified 07/02/24 12:49 PFSH PFSH Surgical History History of incision and drainage ?Z98.890 - Other specified postprocedural states (ICD-10) Social History What is your current living situation?: I presently have a place to live Problems where you live: no known problems Problems where you live details: na In the past 12 months, utilities in danger of being shut off: no In past 12 months, lack of transportation kept you from medical appts, meetings, work, or getting things needed for daily living: no In the past 12 mos, have been you worried that your food would run out before you had money to buy more?: never true In the past 12 mos, the food you bought just didn't last and you didn't have money to buy more?: never true Highest level of school completed/degree received: some college, no degree Smoking Status: Former smoker Do you use any of these nicotine containing products: Vaping Products Second hand tobacco smoke exposure: No How often do you have a drink containing alcohol: 2-3 times a week Alcohol type: beer How many standard drinks containing alcohol do you have on a typical day: 1 or 2 How often do you have six or more drinks on one occasion: Never AUDIT-C Alcohol total score: 3 Non-prescribed substance use: marijuana (any form) Caffeine: Yes How often does anyone, including family, friends and others, physically hurt you : never How often does anyone, including family, friends and others, insult or talk down to you: never How often does anyone, including family, friends and others, threaten you with harm: never How often does anyone, including family, friends and others, scream or curse at you: never service: No Exam Narrative: Exam Narrative: Constitutional: Appears well-developed and well-nourished. Alert. Conversant. Non toxic. HENT: Head: Atraumatic. Nose: Nose normal. TMs normal bilaterally. Mouth/Throat: Oral mucosa is clear and moist. no trismus. Tongue normal. No submandibular swelling. She is status post tonsillectomy and both of her tonsillar beds look okay. There is no adherent eschar or exudate. No bleeding. There is a small amount of fibrin initial white liquidy exudate on both tonsillar beds. Uvula is also mildly erythematous. Uvula is midline. Phonation is normal. Airway widely patent. Eyes: Conjunctivae normal. EOM normal. Pupils equal, round, and reactive to light. No scleral icterus. Neck: Normal range of motion. Neck supple. No tracheal deviation present. Cardiovascular: Normal rate, regular rhythm. No gallop. No friction rub. No murmur heard. Symmetric radial artery pulses Pulmonary/Chest: Effort normal. No stridor. No respiratory distress. No wheezes. No rales. No rhonchi . No tenderness. Musculoskeletal: RUE: Normal range of motion. No tenderness. No deformity LUE: Normal range of motion. No tenderness. No deformity RLE: Normal range of motion. No edema. No tenderness. No deformity LLE: Normal range of motion. No edema. No tenderness. No deformity Lymph: No cervical adenopathy. Neurological: Alert and oriented to person, place, and time. Normal strength. CN II-VII intact. No sensory deficit. GCS eye subscore is 4. GCS verbal subscore is 5. GCS motor subscore is 6. Normal coordination Skin: Skin is warm and dry. No rash noted. No pallor. Normal capillary refill. Psychiatric: Normal mood. Normal affect. Const: Vital Signs, click to edit/add: Vital Signs - 24 hr 07/02/24 12:50 Temperature 100.5 F H Pulse Rate [Pulse Oximeter] 105 H Respiratory Rate 16 Blood Pressure [Ri ght Upper Arm] 115/70 Pulse Oximetry 99 Oxygen Delivery Me thod Room Air Course Course ED Course: Recheck-feeling better after ibuprofen. Still nontoxic. Airway patent. Vital Signs Vital signs: Initial Vital Signs Temperature 100.5 F H 07/02/24 12:50 Temperature Source Temporal Artery Scan 07/02/24 12:50 Pulse Rate 105 H 07/02/24 12:50 Respiratory Rate 16 07/02/24 12:50 Blood Pressure 115/70 07/02/24 12:50 Blood Pressure Mean 85 07/02/24 12:50 Blood Pressure Position Sitting 07/02/24 12:50 Pulse Oximetry 99 07/02/24 12:50 Oxygen Delivery Method Room Air 07/02/24 12:50 Vital Signs Temperature 100.5 F H 07/02/24 12:50 Pulse Rate 105 H 07/02/24 12:50 Respiratory Rate 16 07/02/24 12:50 Blood Pressure 115/70 07/02/24 12:50 Pulse Oximetry 99 07/02/24 12:50 Oxygen Delivery Method Room Air 07/02/24 12:50 Temperature 100.5 F H 07/02/24 12:50 Pulse Rate 105 H 07/02/24 12:50 Respiratory Rate 16 07/02/24 12:50 Blood Pressure 115/70 07/02/24 12:50 Pulse Oximetry 99 07/02/24 12:50 Oxygen Delivery Method Room Air 07/02/24 12:50 Medications Administered Medications: Discontinued Medications Generic Name Dose Route Start Last Admin Trade Name Carq PRN Reason Stop Dose Admin Ibuprofen 600 mg 07/02/24 13:10 07/02/24 13:16 Ibuprofen 100 Mg/5 Ml Susp PO 07/02/24 13:11 600 mg ONCE ONE Administration Medical Decision Making MDM Narrative Medical decision making narrative: 19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 She had recovered from her tonsillectomy surgery and has been back to full activities including school hockey practice. She presents to the ER today again today because she developed recurrent sore throat with low- grade fever, headache and myalgias beginning overnight. She is on essentially day 1 of illness. She is overall nontoxic and hemodynamically stable but does have a fever. She does have an exudate of pharyngitis. Since she is now 3 weeks from tonsillectomy I would not expect to see exudates in her tonsillar beds and I suspect this probably is an acute reinfection. She is negative for strep. PCR negative for coronavirus, influenza, RSV. Exam reveals no evidence for peritonsillar abscess or retropharyngeal abscess. At this point I think that the radiation risk from repeat CT scan of her neck would outweigh any benefit. Likewise I do not think needs laboratory workup. Measuring white count or inflammatory markers would not be helpful in making a diagnosis here. She has no known exposure to mono. Consider possible mono or viral infection. At this stage, on day 1 of illness, labs for mononucleosis would likely not be reliable so would hold off on lab tests for now With recurrent pharyngitis in a patient who has had recurrent abscesses fall concerns for possible a recurrent bacterial pharyngitis that is not group a strep. Put her back on Augmentin. Discussed that she will return to the ER if she has any worsening trop problems in her throat. Otherwise if she is not dramatically improved within 2-3 days she will recheck with ENT. If she is not able to see ENT she will come back to the ER for a recheck in 2-3 days. She and her friend are comfortable this plan of care. She is safe for discharge home. They request prescription be sent to the [facility] Patient requests liquid antibiotics because she has never been able to swallow pills. Lab Data Labs: Lab Results 07/02/24 Range/Units 13:10 SARS-CoV-2 (PCR) Negative SARS-CoV-2 (Negative) Influenza Type A (PCR) Negative PCR FLU A (Negative) Influenza Type B (PCR) Negative PCR FLU B (Negative) RSV (PCR) Negative PCR RSV (Negative) Group A Strep DNA NOT DETECTED (Not Detectd) Discharge Plan Discharge Clinical Impression: Pharyngitis Instructions: Pharyngitis (ED) Additional Instructions: As we discussed, the cause for your pharyngitis is not clear at this time. This could be a viral infection, or could be bacterial. Your testing today is negative for strep, negative for influenza a, negative for coronavirus. But given the recent past, we are going to put you on antibiotics (Augmentin) in case this is another bacterial infection. Watch your symptoms carefully. If yo u have worsening swelling in your throat, trouble swallowing, trouble breathing, high fevers, or any other problems, come back to the ER immediately to be rechecked. You should get better within the next 2-3 days. If you are not completely improved within 2 or 3 days, please see your ENT doctors or come back to the ER for a recheck. While your ill you can use Tylenol (1000 mg every 6 hours) or ibuprofen (600 mg every 6 hours) if needed for fever or for pain. Prescriptions: New amoxicillin-pot clavulanate 400-57 mg/5 mL suspension for reconstitution 10 ml PO BID 7 Days Qty: 140 0RF No Action oxycodone 5 mg/5 mL Solution 5 mg PO Q4H PRN (Reason: Pain) Qty: 100 0RF amoxicillin-pot clavulanate [Augmentin] 250-62.5 mg/5 mL suspension for reconstitution 17.5 ml PO BID 7 Days Qty: 245 0RF Rx Instructions: Please fill THIS Rx. Dispense 875mg Amoxicillin BID (patient unable to tolerate pills). Follow Up/Referrals: Provider,Not a Local [Primary Care Provider] - Stand Alone Forms: WinView Info Instructions
[2024-07-02 12:50] VITALS: BP 115/70; PULSE 105; RESP 16; TEMP 38.1; O2SAT 99; BMI 19.9
[2024-07-02] MEDS: IBUPROFEN 100 MG/5 ML SUSP 600 MG PO (13:16)
--- OUTSIDE RECORDS SUMMARY | 2024-07-02 13:23 | XMS_ITS | Clinical Summary ---
Author Organization [facility] Address [address] [place] [id number] Care Team Providers Care Shelter Monitor Name Role Phone No Ref-Primary, Physician Primary Care Provider Allergies No known active allergies Medications [id number] 0.18/0.215/0.25 MG-25 MCG tablet Take 1 tablet by mouth daily at 2 pm 04/05/2023 Active methylphenidate (METADATE ER) 10 MG CR tablet Take 10 mg by mouth every morning Active ondansetron (ZOFRAN) 4 MG/5ML solution Take 5 mLs (4 mg) by mouth every 8 hours. 180 mL 06/15/2024 Active oxyCODONE (ROXICODONE) 5 MG/5ML solution Take 5 mLs (5 mg) by mouth every 6 hours as needed for severe pain. 30 mL 06/15/2024 06/18/20 Active Problems No known active problems Encounters Date Type Department Care Team Description 06/15/2024 3:19 PM CDT - 06/15/2024 4:14 PM CDT [facility] [address] [place] [address] Phylicia Hernandez PA-C Post-tonsillectomy pain Discharge Disposition: Home or Self Care 06/15/2024 Travel from Last 3 Months Social History Tobacco Use Types Packs/Day Years Used Date Smoking Tobacco: Never Smokeless Tobacco: Never Alcohol Use Standard Drinks/Week Comments Yes 0 (1 standard drink = 0.6 oz pur e alcohol) Adolescent Education Answer Date Record ed Getting School Help Needed Not on file 05/15 Comments No Sex and Gender Information Value Date Recorded Sex Assigned at Not on file Legal Sex Female 11:03 AM CDT Gender Identity Not on file Sexual Orientation Not on file Last Filed Vital Signs Vital Sign Reading Time Taken Comments Blood Pressure 116/69 06/15/2024 4:12 PM CDT Pulse 74 06/15/2024 4:12 PM CDT Temperature 36.4 ??C (97.6 ??F) 06/15/2024 12:46 PM C DT Respiratory Rate 18 06/15/2024 4:12 PM CDT Oxygen Saturation 98% 06/15/2024 4:12 PM CDT Inhaled Oxygen Concentration - - Weight 61.2 kg (135 lb) 06/15/2024 12:46 PM CDT Height 175.3 cm (5' 9) 06/15/2024 12:46 PM CDT Body Mass Index 19.94 06/15/2024 12:46 PM CDT Plan of Treatment Health Maintenance Due Date Last Done Comments ADVANCE CARE PLANNING 2004 ANNUAL REVIEW OF HM ORDERS 2004 YEARLY PREVENTIVE VISIT 2004 HIV SCREENING 2019 HEPATITIS C SCREENING 2022 PHQ-2 (once per calendar year) 2023 CHLAMYDIA SCREENING 03/02/2024 03/02/2023, COVID-19 Vaccine ( season) 2024 07/22/2022, 08/14/2021, 01/04/2021, Additional history exists INFLUENZA VACCINE (#1) 2024 , 11/25/2020, 05/15/2019, Additional history exists DTAP/TDAP/TD IMMUNIZATION (7 - Td or Tdap) 07/26/2025 07/26/2015, 2009, [...] Procedure Name Priority Date/Time Associated Diagnosis Comments CBC WITH PLATELETS & DIFFERENTIAL STAT 06/15/2024 1:34 PM CDT CBC WITH PLATELETS AND DIFFERENTIAL STAT 06/15/2024 1:34 PM CDT MAGNESIUM STAT 06/15/2024 1:34 PM CDT BASIC METABOLIC PANEL STAT 06/15/2024 1:34 PM CDT MICROBIOLOGY ISOLATE REFERRAL Routine 05/11/2024 10:10 AM CDT MICROBIOLOGY ISOLATE REFERRAL Routine 05/11/2024 10:10 AM CDT CHLAMYDIA TRACHOMATIS/NEISSERIA GONORRHOEAE BY PCR Routine 03/02/2023 11:31 AM CDT Acne, unspecified from Last 3 Months or Most Recently Relevant to Health Maintenance Results * (ABNORMAL) CBC with platelets and differential (06/15/2024 1:34 PM CDT) [facility] WBC Count 9.3 4.0 - 11.0 10e3/uL 06/15/2024 1:42 PM CDT [facility] RBC Count 5.27(H) 3.80 - 5.20 10e6/uL 06/15/2024 1:42 PM CDT [facility] Hemoglobin 11.6(L) 11.7 - 15.7 g/dL 06/15/2024 1:42 PM CDT [facility] Hematocrit 38.9 35.0 - 47.0 % 06/15/2024 1:42 PM CDT [facility] MCV 74(L) 78 - 100 fL 06/15/2024 1:42 PM CDT [facility] MCH 22.0(L) 26.5 - 33.0 pg 06/15/2024 1:42 PM [facility] MCHC 29.8(L) 31.5 - 36.5 g/dL 06/15/2024 1:42 PM [facility] RDW 20.6(H) 10.0 - 15.0 % 06/15/2024 1:42 PM [facility] Platelet Count 423 150 - 450 10e3/uL 06/15/2024 1:42 PM [facility] % Neutrophils 70 % 06/15/2024 1:42 PM [facility] % Lymphocytes 21 % 06/15/2024 1:42 PM [facility] % Monocytes 7 % 06/15/2024 1:42 PM [facility] % Eosinophils 1 % 06/15/2024 1:42 PM [facility] % Basophils 0 % 06/15/2024 1:42 PM [facility] % Immature Granulocytes 0 % 06/15/2024 1:42 PM [facility] NRBCs per 100 WBC 0 <1 /100 024 1:42 PM [facility] Absolute Neutrophils 6.5 1.6 - 8.3 10e3/uL 06/15/2024 1:42 PM [facility] Absolute Lymphocytes 2.0 0.8 - 5.3 10e3/uL 06/15/2024 1:42 PM [facility] Absolute Monocytes 0.7 0.0 - 1.3 10e3/uL 06/15/2024 1:42 PM [facility] Absolute Eosinophils 0.1 0.0 - 0.7 10e3/uL 06/15/2024 1:42 PM [facility] Absolute Basophils 0.0 0.0 - 0.2 10e3/uL 06/15/2024 1:42 PM [facility] Absolute Immature Granulocytes 0.0 <=0.4 10e3/uL 06/15/2024 1:42 PM [facility] Absolute NRBCs 0.0 10e3/uL 06/15/2024 1:42 PM [facility] Blood STRUCTURE OF RIGHT UPPER LIMB / Unknown Venipuncture / Unknown 06/15/2024 1:34 PM CDT 06/15/2024 1:38 PM CDT Phylicia Hernandez PA-C LAB - BLOOD ORDERABLES Samantha l Result Performing Organization Address City/[facility]/ZIP Co de Phone Number [facility] Critical access hospital [address] [place] [address], [place] * Magnesium (06/15/2024 1:34 PM CDT) Pathologist [facility] Magnesium 2.1 1.7 - 2.3 mg/dL 06/15/2024 1:57 PM CDT [facility] Blood STRUCTURE OF RIGHT UPPER LIMB / Unknown Venipuncture / Unknown 06/15/2024 1:34 PM CDT 06/15/2024 1:38 PM CDT Phylicia JOHNSON-C LAB - BLOOD ORDERABLES Samantha l Result Performing Organization Address [facility] Co de Phone Number [facility] [address] [place] [address], [place] * (ABNORMAL) Basic metabolic panel (06/15/2024 1:34 PM CDT) [facility] Sodium 140 135 - 145 mmol/L 06/15/2024 1:57 PM CDT [facility] Potassium 4.3 3.4 - 5.3 mmol/L 06/15/2024 1:57 PM CDT [facility] Chloride 102 98 - 107 mmol/L 06/15/2024 1:57 PM CDT [facility] Carbon Dioxide (CO2) 26 22 - 29 mmol/L 06/15/2024 1:57 PM CDT [facility] Anion Gap 12 7 - 15 mmol/L 06/15/2024 1:57 PM CDT [facility] Urea Nitrogen 11.9 6.0 - 20.0 mg/dL 06/15/2024 1:57 PM CDT [facility] Creatinine 0.98(H) 0.51 - 0.95 mg/dL 06/15/2024 1:57 PM CDT [facility] GFR Estimate 84 >60 mL/min/1.7 3m2 06/15/2024 1:57 PM CDT [facility] Comment:eGFR calculated us2020 CKD-EPI equation. Calcium 10.1 8.8 - 10.4 mg/dL 06/15/2024 1:57 PM CDT [facility] Comment:Reference intervals for this test were updated on 03/07/2024 to reflect our healthy population more accurately. There may be differences in the flagging of prior results with similar values performed with this method. Those prior results can be interpreted in the context of the updated reference intervals. Glucose 96 70 - 99 mg/dL 06/15/2024 1:57 PM CDT [facility] Blood STRUCTURE OF RIGHT UPPER LIMB / Unknown Venipuncture / Unknown 06/15/2024 1:34 PM CDT 06/15/2024 1:38 PM CDT Phylicia Hernandez PA-C LAB - BLOOD ORDERABLES Samantha ladd Result [facility] [address] [place], [place] [address] * (ABNORMAL) Microbiology Isolate Referral (05/11/2024 10:10 [...] Streptococcus species Vancomycin KHUSHBOO 0.5 ug/mL: Susceptible us Delfino Olivares MD LAB - MICRO GENERAL OR DERABLES Final Result [facility] Inf. Diseases Di[facility]. Lab [address] [facility], [address] [address], [place] * Chlamydia trachomatis/Neisseria gonorrhoeae by PCR (03/02/2023 11:31 AM CDT) Chlamydia Trachomatis Negative Negative 03/03/2023 12:34 PM CDT [facility] Comment: Negative for C. trachomatis rRNA by scientific research associate mediated amplification. A negative result by scientific research associate mediated amplification does not preclude the presence of infection because results are dependent on proper and adequate collection, absence of inhibitors and sufficient rRNA to be detected. Neisseria gonorrhoeae Negative Negative 03/03/2023 12:34 PM CDT [facility] Comment:Negative for N. gono rrhoeae rRNA by scientific research associate mediated amplification. A negative result by scientific research associate mediated amplification does not preclude the presence of C. trachomatis infection because results are dependent on proper and adequate collection, absence of inhibitors and sufficient rRNA to be detected. Urine VOIDED URINE SPECIMEN / Unknown Non-blood Collection / Unknown 03/02/2023 11:31 AM CDT 03/02/2023 2:39 PM CDT Cuca Lorenzo MD LAB - MICRO GENERAL ORDE RABLES Final Result [facility] Inf. Diseases Diag. Lab [address] [facility], [address] [address], [place] [phone] from Last 3 Months or Most Recently Relevant to Health Maintenance Insurance [facility] Care Teams Shelter Monitor Relationship Specialty Start Date End Date No Ref-Primary, Physician PCP - General 08/26/21
--- OUTSIDE RECORDS SUMMARY | 2024-07-02 13:23 | XMS_ITS | Referral Summary ---
Author Organization [facility] Address [address] [place] [id number] Care Team Providers Care Range Conservationist Name Role Phone No Ref-Primary, Physician Primary Care Provider Encounters Date Type Department Care Team Description 06/15/2024 Travel 06/15/2024 3:19 PM CDT - 06/15/2024 4:14 PM CDT Emergency [facility] Emergency Room [facility] [place] [address] Phylicia Hernnadez PA-C Post-tonsillectomy pain Discharge Disposition: Home or Self Care from Last 3 Months Allergies No known active allergies Medications [id number] 0.18/0.215/0.25 MG-25 MCG tablet Take 1 tablet [...] 06/18/20 Active Problems No known active problems Social [...] 06/15/2024 12:46 PM CDT Plan of Treatment Not on file Procedures [...] platelets and differential (06/15/2024 1:34 PM CDT) [facility] WBC Count 9.3 4.0 - 11.0 10e3/uL 06/15/2024 1:42 PM [facility] RBC Count 5.27(H) 3.80 - 5.20 10e6/uL 06/15/2024 1:42 PM [facility] Hemoglobin 11.6(L) 11.7 - 15.7 g/dL 06/15/2024 1:42 PM [facility] Hematocrit 38.9 35.0 - 47.0 % 06/15/2024 1:42 PM [facility] MCV 74(L) 78 - 100 fL 06/15/2024 1:42 PM [facility] MCH 22.0(L) 26.5 - 33.0 pg 06/15/2024 1:42 PM [facility] MCHC 29.8(L) 31.5 - 36.5 g/dL 06/15/2024 1:42 PM [facility] RDW 20.6(H) 10.0 - 15.0 % 06/15/2024 1:42 PM [facility] Platelet Count 423 150 - 450 10e3/uL 06/15/2024 1:42 PM [facility] % Neutrophils 70 % 06/15/2024 1:42 PM [facility] % Lymphocytes 21 % 06/15/2024 1:42 PM [facility] % Monocytes 7 % 06/15/2024 1:42 PM [facility] % Eosinophils 1 % 06/15/2024 1:42 PM [facility] % Basophils 0 % 06/15/2024 1:42 PM [facility] % Immature Granulocytes 0 % 06/15/2024 1:42 PM [facility] NRBCs per 100 WBC 0 <1 /100 024 1:42 PM [facility] Absolute Neutrophils 6.5 1.6 - 8.3 10e3/uL 06/15/2024 1:42 PM [facility] Absolute Lymphocytes 2.0 0.8 - 5.3 10e3/uL 06/15/2024 1:42 PM [facility] Absolute Monocytes 0.7 0.0 - 1.3 10e3/uL 06/15/2024 1:42 PM CDT [facility] Absolute Eosinophils 0.1 0.0 - 0.7 10e3/uL 06/15/2024 1:42 PM CDT [facility] Absolute Basophils 0.0 0.0 - 0.2 10e3/uL 06/15/2024 1:42 PM CDT [facility] Absolute Immature Granulocytes 0.0 <=0.4 10e3/uL 06/15/2024 1:42 PM CDT [facility] Absolute NRBCs 0.0 10e3/uL 06/15/2024 1:42 PM CDT [facility] Blood STRUCTURE OF RIGHT UPPER LIMB / Unknown Venipuncture / Unknown 06/15/2024 1:34 PM CDT 06/15/2024 1:38 PM CDT Phylicia Hernandez PA-C LAB - BLOOD ORDERABLES Saamntha l Result Performing Organization Address City/[facility]/ZIP Co de Phone Number [facility] [address], [place] [phone], [facility] * Magnesium (06/15/2024 1:34 PM CDT) Pathologist [facility] Magnesium 2.1 1.7 - 2.3 mg/dL 06/15/2024 1:57 PM CDT [facility] Blood STRUCTURE OF RIGHT UPPER LIMB / Unknown Venipuncture / Unknown 06/15/2024 1:34 PM CDT 06/15/2024 1:38 PM CDT Phylicia JOHNSON-C LAB - BLOOD ORDERABLES Samantha l Result [facility] [address], [place] [phone], [facility] * (ABNORMAL) Basic metabolic panel (06/15/2024 1:34 PM CDT) Sodium 140 135 - 145 mmol/L 06/15/2024 1:57 PM CDT [facility] Potassium 4.3 3.4 - 5.3 mmol/L 06/15/2024 1:57 PM CDT [facility] Chloride 102 98 - 107 mmol/L 06/15/2024 1:57 PM CDT [facility] Carbon Dioxide (CO2) 26 22 - 29 mmol/L 06/15/2024 1:57 PM CDT [facility] Anion Gap 12 7 - 15 mmol/L 06/15/2024 1:57 PM CDT [facility] Urea Nitrogen 11.9 6.0 - 20.0 mg/dL 06/15/2024 1:57 PM CDT [facility] Creatinine 0.98(H) 0.51 - 0.95 mg/dL 06/15/2024 1:57 PM CDT [facility] GFR Estimate 84 >60 mL/min/1.7 3m2 06/15/2024 1:57 PM CDT [facility] Comment:eGFR calculated us2020 CKD-EPI equation. Calcium 10.1 8.8 - 10.4 mg/dL 06/15/2024 1:57 PM T [facility] Comment:Reference intervals for this test were updated on 03/07/2024 to reflect our healthy population more accurately. There may be differences in the flagging of prior results with similar values performed with this method. Those prior results can be interpreted in the context of the updated reference intervals. Glucose 96 70 - 99 mg/dL 06/15/2024 1:57 PM CDT [facility] Blood STRUCTURE OF RIGHT UPPER LIMB / Unknown Venipuncture / Unknown 06/15/2024 1:34 PM CDT 06/15/2024 1:38 PM CDT us Phylicia Hernandez PA-C LAB - BLOOD ORDERABLES Samantha ladd Result [facility] [address] [place] [address], [facility] * (ABNORMAL) [...] Susceptible Delfino Olivares MD LAB - MICRO GENERAL OR DERABLES Final Result [facility] Inf. Diseases Diag. Lab [address] [facility] [place] [address] * Chlamydia trachomatis/Neisseria gonorrhoeae by PCR (03/02/2023 11:31 AM CDT) [facility] Chlamydia Trachomatis Negative Negative 03/03/2023 12:34 PM CDT [facility] Comment: Negative for C. trachomatis rRNA by geothermal sheet metal worker mediated amplification. A negative result by geothermal sheet metal worker mediated amplification does not preclude the presence of infection because results are dependent on proper and adequate collection, absence of inhibitors and sufficient rRNA to be detected. Neisseria gonorrhoeae Negative Negative 03/03/2023 12:34 PM CDT [facility] Comment:Negative for N. gono rrhoeae rRNA by geothermal sheet metal worker mediated amplification. A negative result by geothermal sheet metal worker mediated amplification does not preclude the presence of C. trachomatis infection because results are dependent on proper and adequate collection, absence of inhibitors and sufficient rRNA to be detected. Urine VOIDED URINE SPECIMEN / Unknown Non-blood Collection / Unknown 03/02/2023 11:31 AM CDT 03/02/2023 2:39 PM CDT Cuca Lorenzo MD LAB - MICRO GENERAL MY WEISS Final Result [facility] Inf. Diseases Diag. Lab [address] [facility] [place] [address], [facility] [phone] from Last 3 Months or Most Recently Relevant to Health Maintenance Insurance [employer] OUT OF STATE Care Teams Range Conservationist Relationship Specialty Start Date End Date No Ref-Primary, Physician PCP - General 08/26/21
--- OUTSIDE RECORDS SUMMARY | 2024-07-02 13:23 | XMS_ITS | Encounter Summary ---
Author Organization [facility] Address [address] [place] [address] Care Team Providers Care Biomedical Engineering Supervisor Name Role Phone No Ref-Primary, Physician Primary Care Provider Reason for Visit * Reason Comments Post-op Problem Nausea Encounter Details Date Type Department Care Team (Late st Contact Info) Description 06/15/2024 3:19 PM CDT - 06/15/2024 4:14 PM CDT Emergency [facility] Emergency Room [address] [place] [address] Phylicia Hernandez PA-C [facility] [address] [place] [id number] Post-tonsillectomy pain Discharge Disposition: Home or Self Care Social History Tobacco Use Types Packs/Day Years [...] on file Sexual Orientation Not on file documented as of this encounter Last Filed Vital Signs Vital Sign Reading [...] Mass Index 19.94 06/15/2024 12:46 PM CDT documented in this encounter Discharge Instructions * Discharge Instructions* Phylicia Hernandez PA-C - 06/15/2024 3:11 PM CDT You are seen in the emergency department postop tonsillectomy. Overall your exam here is reassuring. Am not seeing significant swelling. There is no bleeding. Your lab work is reassuring without evidence of significant dehydration. We did give you a liter of fluids here and some Zofran. I do think at this point that a lot of your symptoms are secondary to pain control and nausea. Continue to take Tylenol and ibuprofen every 6 hours. I can be helpful to alternate these so that every 3 hours or so you are getting some sort of pain relief. This can be like the following. Tylenol noon, ibuprofen3, Tylenol 6, ibuprofen 9, etc. And then taking the oxycodone for breakthrough pain. I will send you home with additional oxycodone as well as some Zofran. Continue with a soft bland diet until your pain is improving. Go to your postop appointment on the fifth. If you develop any new or worsening symptoms including significant bleeding, high fevers, difficulty breathing, return to the emergency department documented in this encounter Medications at Time of Discharge ondansetron (ZOFRAN) 4 MG/5ML solution Take 5 mLs (4 mg) by mouth every 8 hours. 180 mL 06/15/2024 methylphenidate (METADATE ER) 10 MG CR tablet Take 10 mg by mouth every morning [id number] 0.18/0.215/0.25 MG-25 MCG tablet Take 1 tablet by mouth daily at 2 pm 04/05/2023 oxyCODONE (ROXICODONE) 5 MG/5ML solution Take 5 mLs (5 mg) by mouth every 6 hours as needed for severe pain. 30 mL 06/15/2024 06/18/2024 documented as of this encounter ED Notes * Phylicia Hernandez PA-C - 06/15/2024 4:14 PM CDT EMERGENCY DEPARTMENT ENCOUNTER NAME: Mikaela Real AGE: [age] year old female DATE OF : 2005 EVALUATION DATE & TIME: 06/15/2024 3:19 PM PCP: No Ref-Primary, Physician ED PROVIDER: Phylicia Hernandez PA-C FINAL IMPRESSION: Postop tonsillectomy pain CHIEF COMPLAINT: Postop pain MEDICAL DECISION MAKIN I met with the patient and obtained a history and performed a physical exam ED Course as of 06/15/242037 Kathya Jun 15, 2024 1432 19-year-old female 3 days postop from a tonsillectomy through [place] to ENT. She has had recurrent tonsillar abscesses going back to 2021. Most recently had an abscess in April 2024, this was drained by Dr. Maximino Shetty With ENT. She then bounced back 3 weeks later with the same sized abscess and they took her to the OR to have a tonsillectomy with Dr. Andrés Medel She is describing pain, sensation of swelling, nausea, and decreased oral intake. Is concerned about dehydration. [place] a bit lightheaded or dizzy today because she had not ate or drink anything. Denies fevers. Denieshistory of any other surgeries. Denies any tonsillar bleeding. Feels like her voice is a bit changecompared to her baseline. She has been trying to take sips of water but feels like she has too muchpain with swallowing. Taking ibuprofen, Tylenol, oxycodone. On exam, white film noted over posterior pharynx uvula midline no unilateral swelling. Typical postop appearance. Phonating but voice slightly changed from baseline. No stridor. No drooling. No bleeding. Mucous membranes tachy, lips cracked. Patient's primary concern is the nausea and dehydration. Will obtain labs to assess for dehydrationand leukocytosis or anemia. Will give 1 L fluids and Zofran. Will plan to reach out to ENT to make them aware that the patient is here. Overall planning to discharge with close follow-up. Patient andfather agreeable to plan. I am unable to see most records from [facility] including the postop note. Workup revealedno leukocytosis. Slight anemia at 11.6. Patient reports from previous labs during the hospitalization, she was told her hemoglobin was 10. I cannot see these records but it does appear to be up from what she says. I do not see any active bleeding. Creatinine slightly elevated at 0.98 which could indicate mild dehydration but no electrolyte abnormalities. Check, patient reports that she feels significantly better after fluids. She is tolerating p.o. Her nausea has improved. I do think her nauseawas secondary to stomach upset from not eating or from the oxycodone. I was not able to get a hold of ENT. When the SOCIOLOGY INSTRUCTOR called, they said there is no one on-call today and if we have significant concerns to transfer the patient to [facility]. I do not think the patient needs to be transferred. She is stable here. Can continue with routine postop cares but will send her home with a refillof her oxycodone given that pain is her primary concern as well as encouraging her to continue with Tylenol and ibuprofen. Will send her home with Zofran. Encouraging a soft bland diet. They have an appointment next week with ENT which I think is reasonable. Discussed if she develops any postop bleeding, fevers, or any other concerning symptoms to return to the emergency department. Patient and father were agreeable. Discharged from the lobby in stable condition. Medical Decision Making Obtained supplemental history:Supplemental history obtained?: Documented in chart and Family Member/Significant Other Reviewed external records: External records reviewed?: No Care impacted by chronic illness:Documented in Chart Care significantly affected by social determinants of health:N/A Did you consider but not order tests?: Work up considered but not performed and documented in chart, if applicable Did you interpret images independently?: Independent interpretation of ECG and images noted in documentation, when applicable. Consultation discussion with other provider:Did you involve another provider (speech correction consultant, , pharmacy, etc.)?: No Discharge. I prescribed additional prescription strength medication(s) as charted. See documentation for any additional details. 0 minutes of critical care time MEDICATIONS GIVEN IN THE EMERGENCY: Medications sodium chloride 0.9% BOLUS 1,000 mL (0 mLs Intravenous Stopped 06/15/24 1603) ondansetron (ZOFRAN) injection 4 mg (4 mg Intravenous $Given 06/15/24 1338) NEW PRESCRIPTIONS STARTED AT TODAY'S ER VISIT Discharge Medication List as of 06/15/2024 4:04 PM START taking these medications Details ondansetron (ZOFRAN) 4 MG/5ML solution Take 5 mLs (4 mg) by mouth every 8 hours., Disp-180 mL, R-0,E-Prescribe oxyCODONE (ROXICODONE) 5 MG/5ML solution Take 5 mLs (5 mg) by mouth every 6 hours as needed for severe pain., Disp-30 mL, R-0, Local Print Discharge Medication List as of 06/15/2024 4:04 PM HPI Patient information was obtained from: patient Use of Insurance Special Agent: N/A Mikaela Real is a 19 year old female with a pertinent history of peritonsillar abscesses and is status post day 3 from a tonsillectomy at [facility] with ENT who presents to this ED by walk-in for evaluation of decreased oral intake and nausea. Reports that her pain is pretty well-controlled with Tylenol, ibuprofen, oxycodone but does feel like the oxycodone is making her nauseous. But over the past 24 hours has felt like even sips of waterhas caused a lot of significant pain so she has not really had any oral intake. She did feel a bit lightheaded today but has not passed out or had any syncopal episodes. Denies vomiting, diarrhea, fevers, difficulty breathing. Has a postop appointment on June 27 with ENT. Per father, her medical history consist of a peritonsillar abscess back in 2021 that was treated with oral antibiotics and resolved. Another tonsillar abscess April 2024 which was treated with IVUnasyn and discharged home on Augmentin. She then had a recurrence of the abscess 1 week ago. She was treated once again with Unasyn and then they planned for tonsillectomy which was done on 06/12/2024 Chart review: 06/11/24. Was diagnosed with microcytic anemia and recurrent peritonsillar abscess. On 05/16/2024. Patient grew beta-hemolytic strep to coccus serious a as well as haemophilus parainfluenza a which are both sensitive to ampicillin so was recommended to continue Unasyn and Decadron. Followed with with ENT plan for surgery on 1020. This is her second tonsillar abscess with 1 being back in April which measured 1.6 cm. Was treated at that time with Unasyn and had close ENT follow-up with discharged on Augmentin. PHYSICAL EXAM BP 116/69 Pulse 74 Temp 97.6 ??F (36.4 ??C) (Temporal) Resp 18 Ht 1.753 m (5' 9) Wt 61.2kg (135 lb) LMP 04/06/2024 SpO2 98% BMI 19.94 kg/m?? Constitutional: Pale, cracked lips, fatigued appearing but in no acute distress. GCS 15. HENT: Normocephalic, Atraumatic, Bilateral external ears normal, Oropharynx normal, mucous membranes moist, Nose normal. Neck- Normal range of motion, No tenderness, Supple, No stridor. white film noted over posterior pharynx uvula midline no unilateral swelling. Typical postop appearance. Phonating but voice slightly changed from baseline. No stridor. No drooling. No bleeding. Mucous membranes tachy, lips cracked. Eyes: EOMI, Conjunctiva normal, No discharge. Respiratory: Normal breath sounds, No respiratory distress, No wheezing, Speaks full sentences easily. No cough. Neurologic: Alert & oriented x 3, Normal motor function, Normal sensory function, No focal deficits noted. Normal gait. Psychiatric: Affect normal, Judgment normal, Mood normal. Cooperative. LAB: All pertinent labs reviewed and interpreted. Results for orders placed or performed during the hospital encounter of 06/15/24 Basic metabolic panel Result Value Ref Range Sodium 140 135 - 145 mmol/L Potassium 4.3 3.4 - 5.3 mmol/L Chloride 102 98 - 107 mmol/L Carbon Dioxide (CO2) 26 22 - 29 mmol/L Anion Gap 12 7 - 15 mmol/L Urea Nitrogen 11.9 6.0 - 20.0 mg/dL Creatinine 0.98 (H) 0.51 - 0.95 mg/dL GFR Estimate 84 >60 mL/min/1.73m2 Calcium 10.1 8.8 - 10.4 mg/dL Glucose 96 70 - 99 mg/dL Result Value Ref Range Magnesium 2.1 1.7 - 2.3 mg/dL CBC with platelets and differential Result Value Ref Range WBC Count 9.3 4.0 - 11.0 10e3/uL RBC Count 5.27 (H) 3.80 - 5.20 10e6/uL Hemoglobin 11.6 (L) 11.7 - 15.7 g/dL Hematocrit 38.9 35.0 - 47.0 % MCV 74 (L) 78 - 100 fL MCH 22.0 (L) 26.5 - 33.0 pg MCHC 29.8 (L) 31.5 - 36.5 g/dL RDW 20.6 (H) 10.0 - 15.0 % Platelet Count 423 150 - 450 10e3/uL % Neutrophils 70 % % Lymphocytes 21 % % Monocytes 7 % % Eosinophils 1 % % Basophils 0 % % Immature Granulocytes 0 % NRBCs per 100 WBC 0 <1 /100 Absolute Neutrophils 6.5 1.6 - 8.3 10e3/uL Absolute Lymphocytes 2.0 0.8 - 5.3 10e3/uL Absolute Monocytes 0.7 0.0 - 1.3 10e3/uL Absolute Eosinophils 0.1 0.0 - 0.7 10e3/uL Absolute Basophils 0.0 0.0 - 0.2 10e3/uL Absolute Immature Granulocytes 0.0 <=0.4 10e3/uL Absolute NRBCs 0.0 10e3/uL RADIOLOGY: Reviewed all pertinent imaging. Please see official radiology report. No orders to display Phylicia Hernandez PA-C [facility] EMERGENCY ROOM [address] [facility] [id number] Phylicia Hernandez PA-C 06/15/242039 * Lilibeth Puckett, RN - 06/15/2024 12:48 PM CDT Pt presents to the ED with c/o of nausea, and unable to swallow after a tonsillectomy, due to reoccurring abscesses that was performed on Wednesday at [facility]. Pt 's lips are dry and cracked and pt reports urine output has gone down. Triage Assessment (Adult) Row Name 06/15/24 1248 Triage Assessment Airway WDL WDL Respiratory WDL Respiratory WDL WDL Skin Circulation/Temperature WDL Skin Circulation/Temperature WDL WDL Cardiac WDL Cardiac WDL WDL Peripheral/Neurovascular WDL Peripheral Neurovascular WDL WDL Cognitive/Neuro/Behavioral WDL Cognitive/Neuro/Behavioral WDL WDL documented in this encounter Plan of Treatment Not on file documented as of this encounter Procedures Procedure Name Priority Date/Time Associated Diagnosis Comments CBC WITH PLATELETS AND DIFFERENTIAL STAT 06/15/2024 1:34 PM CDT CBC WITH PLATELETS & DIFFERENTIAL STAT 06/15/2024 1:34 PM CDT MAGNESIUM STAT 06/15/2024 1:34 PM CDT BASIC METABOLIC PANEL STAT 06/15/2024 1:34 PM CDT documented in this encounter Results * (ABNORMAL) CBC with platelets and differential (06/15/2024 1:34 PM CDT) [facility] WBC Count 9.3 4.0 - 11.0 10e3/uL 06/15/2024 1:42 PM CDT [facility] RBC Count 5.27(H) 3.80 - 5.20 10e6/uL 06/15/2024 1:42 PM CDT [facility] Hemoglobin 11.6(L) 11.7 - 15.7 g/dL 06/15/2024 1:42 PM CDT [facility] Hematocrit 38.9 35.0 - 47.0 % 06/15/2024 1:42 PM [facility] MCV 74(L) 78 - 100 fL 06/15/2024 1:42 PM [facility] MCH 22.0(L) 26.5 - 33.0 pg 06/15/2024 1:42 PM [facility] MCHC 29.8(L) 31.5 - 36.5 g/dL 06/15/2024 1:42 PM [facility] RDW 20.6(H) 10.0 - 15.0 % 06/15/2024 1:42 PM [facility] Platelet Count 423 150 - 450 10e3/uL 06/15/2024 1:42 PM [facility] % Neutrophils 70 % 06/15/2024 1:42 PM [facility] % Lymphocytes 21 % 06/15/2024 1:42 PM [facility] % Monocytes 7 % 06/15/2024 1:42 PM [facility] % Eosinophils 1 % 06/15/2024 1:42 PM [facility] % Basophils 0 % 06/15/2024 1:42 PM [facility] % Immature Granulocytes 0 % 06/15/2024 1:42 PM [facility] NRBCs per 100 WBC 0 <1 /100 024 1:42 PM [facility] Absolute Neutrophils 6.5 1.6 - 8.3 10e3/uL 06/15/2024 1:42 PM [facility] Absolute Lymphocytes 2.0 0.8 - 5.3 10e3/uL 06/15/2024 1:42 PM [facility] Absolute Monocytes 0.7 0.0 - 1.3 10e3/uL 06/15/2024 1:42 PM [facility] Absolute Eosinophils 0.1 0.0 - 0.7 10e3/uL 06/15/2024 1:42 PM [facility] Absolute Basophils 0.0 0.0 - 0.2 10e3/uL 06/15/2024 1:42 PM [facility] Absolute Immature Granulocytes 0.0 <=0.4 10e3/uL 06/15/2024 1:42 PM [facility] Absolute NRBCs 0.0 10e3/uL 06/15/2024 1:42 PM CDT [facility] Blood STRUCTURE OF RIGHT UPPER LIMB / Unknown Venipuncture / Unknown 06/15/2024 1:34 PM CDT 06/15/2024 1:38 PM CDT Phylicia Hernandez PA-C LAB - BLOOD ORDERABLES Samantha l Result Performing Organization Address City/[facility]/ZIP Co de Phone Number [facility] [address] [place] [address] * Magnesium (06/15/2024 1:34 PM CDT) Magnesium 2.1 1.7 - 2.3 mg/dL 06/15/2024 1:57 PM CDT [facility] Blood STRUCTURE OF RIGHT UPPER LIMB / Unknown Venipuncture / Unknown 06/15/2024 1:34 PM CDT 06/15/2024 1:38 PM CDT Phylicia JOHNSON-C LAB - BLOOD ORDERABLES Samantha l Result Performing Organization Address [facility] Co de Phone Number [facility] [address] [place] [address] * (ABNORMAL) Basic metabolic panel (06/15/2024 1:34 PM CDT) Sodium 140 135 - 145 mmol/L 06/15/2024 1:57 PM CDT [facility] Potassium 4.3 3.4 - 5.3 mmol/L 06/15/2024 1:57 PM CDT [facility] Chloride 102 98 - 107 mmol/L 06/15/2024 1:57 PM CDT [facility] Carbon Dioxide (CO2) 26 22 - 29 mmol/L 06/15/2024 1:57 PM CDT [facility] Anion Gap 12 7 - 15 mmol/L 06/15/2024 1:57 PM CDT [facility] Urea Nitrogen 11.9 6.0 - 20.0 mg/dL 06/15/2024 1:57 PM CDT [facility] Creatinine 0.98(H) 0.51 - 0.95 mg/dL 06/15/2024 1:57 PM CDT [facility] GFR Estimate 84 >60 mL/min/1.7 3m2 06/15/2024 1:57 PM CDT [facility] Comment:eGFR calculated usin 2020 CKD-EPI equation. Calcium 10.1 8.8 - 10.4 mg/dL 06/15/2024 1:57 PM CDT [facility] Comment:Reference intervals for this test were updated on 03/07/2024 to reflect our healthy population more accurately. There may be differences in the flagging of prior results with similar values performed with this method. Those prior results can be interpreted in the context of the updated reference intervals. Glucose 96 70 - 99 mg/dL 06/15/2024 1:57 PM CDT [facility] Blood STRUCTURE OF RIGHT UPPER LIMB / Unknown Venipuncture / Unknown 06/15/2024 1:34 PM CDT 06/15/2024 1:38 PM CDT Phylicia Hernandez PA-C LAB - BLOOD ORDERABLES Samantha ladd Result [facility] [address] [place] [address], [facility] [[email or web address]] documented in this encounter Visit Diagnoses Diagnosis Post-tonsillectomy pain Throat pain documented in this encounter Administered Medications Inactive Administered Medications - up to 3 most recent administrations Medication Order MAR Action Action Date Dose Rate Site ondansetron (ZOFRAN) injection 4 mg 4 mg, Intravenous, ONCE, Administer over 2-5 Minutes, On Kathya 06/15/24 at 1400, For 1 dose $Given 06/15/2024 1:38 PM CDT 4 mg sodium chloride 0.9% BOLUS 1,000 mL Intravenous, 1,000 mL, ONCE, at 1,000 mL/hr, Administer over 1 Hours, On Kathya 06/15/24 at 1330, For 1 dose $New Bag 06/15/2024 1:34 PM CDT 1,000 mLs 1000 mL/hr documented in this encounter Active and Recently Administered Medications Times are shown in CDT. Scheduled Medication Order 06/13/2024 06/14/2024 06/15/2024 ondansetron (ZOFRAN) injection 4 mg (COMPLETED) 4 mg, Intravenous, ONCE, Administer over 2-5 Minutes, On Kathya 06/15/24 at 1400, For 1 dose 1338 ($Given - Provi lennie: Felicia Fields, RN) sodium chloride 0.9% BOLUS 1,000 mL (COMPLETED) Intravenous, 1,000 mL, ONCE, at 1,000 mL/hr, Administer over 1 Hours, On Kathya 06/15/24 at 1330, For 1 dose 1334 ($New Bag - Pro vider: Felicia Fields, DEBORAH)[id number] (Stopped - Provider: Lilibeth Puckett RN) documented in this encounter Care Teams Biomedical Engineering Supervisor Relationship Specialty Start Date End Date No Ref-Primary, Physician PCP - General 08/26/21 documented as of this encounter
--- OUTSIDE RECORDS SUMMARY | 2024-07-02 13:23 | XMS_ITS | Encounter Summary ---
Author Organization [place] Address [address] [place] [id number] Care Team Providers Care Vice President Industrial Relations Name Role Phone No Ref-Primary, Physician Primary Care Provider Encounter Details Date Type Department Care Team (Late st Contact Info) Description 08/27/2021 Documentation Only INTERFACED REPORT Unknown, Provider Social History Tobacco Use Types Packs/Day Years Used Date Smoking Tobacco: Never Assessed Comments Unknown Sex and Gender Information Value Date Recorded Sex Assigned at Not on file Legal Sex Female 11:03 AM CDT Gender Identity Not on file Sexual Orientation Not on file COVID-19 Exposure Response Date Recorded In the last month, have you been in contact with someone who was confirmed or suspected to have Coronavirus / COVID-19? No / Unsure 08/26/2021 9:59 PM LEVER TENDER documented as of this encounter Plan of Treatment Not on file documented as of this encounter Visit Diagnoses Not on filedocumented in this encounter Additional Health Concerns Infection Onset Date Last Indicated Resolved Time Rule Out COVID-19 08/27/2021 08/27/2021 08/27/2021 2:19 AM LEVER TENDER documented as of this encounter Care Teams Vice President Industrial Relations Relationship Specialty Start Date End Date No Ref-Primary, Physician PCP - General 08/26/21 documented as of this encounter
--- OUTSIDE RECORDS SUMMARY | 2024-07-02 13:23 | XMS_ITS | Encounter Summary ---
Author Organization [facility] Address [address] [place] [address] Care Team Providers Care Computer Equipment Installer Name Role Phone No Ref-Primary, Physician Primary Care Provider Encounter Details Date Type Department Care Team (Latest Contact Info) Description 06/15/2024 Travel Social History Tobacco Use Types Packs/Day Years [...] on file documented as of this encounter Plan of Treatment Not on file documented as of this encounter Visit Diagnoses Not on filedocumented in this encounter Care Teams Computer Equipment Installer Relationship Specialty Start Date End Date No Ref-Primary, Physician PCP - General 08/26/21 documented as of this encounter
[2024-07-02 13:42] LABS: Strep A DNA Probe* NOT DETECTED (Not Detectd)
[2024-07-02 13:54] LABS: PCR FLU A Negative PCR FLU A (Negative); PCR FLU B Negative PCR FLU B (Negative); PCR RSV Negative PCR RSV (Negative); SARS PCR* Negative SARS-CoV-2 (Negative)
== END 2024-07-02 14:25 | disposition home or self-care (01) ==
PROVIDERS: Emergency Provider Emergency Medicine
DX: J02.9 Acute pharyngitis, unspecified (principal)
CPT/HCPCS: 87631; 87651; 99282; 99283; A9270

== ENCOUNTER 2025-05-11 08:53 | Outpatient (CLI) | payer BC, SELFPAY ==
--- NOTE | 2025-05-11 09:15 | CRLHL7_ITS ---
For Patients: As a result of the Century Cures Act, medical imaging exams and procedure reports are released immediately into your electronic medical record. You may view this report before your referring provider. If you have questions, please contact your health care provider. Indication: left hip impingement syndrome Procedure : Informed consent was obtained. The site was marked. Time-out was performed. The skin of the left hip was cleansed with ChloraPrep. A sterile drape was placed. 8 cc of 1 percent lidocaine was administered for superficial anesthesia. Subsequently a 22 gauge spinal needle was introduced into the left hip joint under intermittent fluoroscopic guidance. Injection of 2 cc nonionic Omnipaque 240 contrast confirmed intra-articular location. Subsequently 11 cc of dilute gadolinium were injected. The needle was removed and hemostasis achieved with direct pressure. A dressing was placed. The patient tolerated the procedure well without immediate complication and was immediately sent to MRI for imaging. Total fluoroscopy time 33 seconds. Impression: Successful fluoroscopically guided left hip arthrogram for MRI. Dictated by Bryant Martínez MD @ 05/11/2025 12:12:05 PM (Electronically Signed)
--- NOTE | 2025-05-11 10:15 | CRLHL7_ITS ---
For Patients: As a result of the 21st Century Cures Act, medical imaging exams and procedure reports are released immediately into your electronic medical record. You may view this report before your referring provider. If you have questions, please contact your health care provider. CLINICAL INDICATION: Left hip impingement syndrome. COMPARISON IMAGING STUDIES: Fluoroscopic spot film from 05/11/2025. TECHNICAL: MR arthrogram of the left hip with contrast. Axial, axial oblique, sagittal and coronal T1 fat sat and PDFS small field of view images of the left hip. Coronal T1 and PDFS large field of view images of the entire pelvis. 1.5 Chrissy MR scanner. FINDINGS: LEFT HIP: There is cam morphology of the left proximal femur with a upper femoral neck osseous bump present anterosuperiorly and anteriorly. No definite acetabular retroversion. There is a small focus of linear contrast between the anterior superior labral periphery and hip joint capsule on sagittal T1 fat-sat image number 14 of series 9 of questionable significance given its very limited nature. The adjacent labrum appears intact. Other portions of labrum are intact. The femoral head and acetabular articular surfaces are smooth without focal articular cartilage defect. No paralabral cyst. RIGHT HIP: Right hip joint space is maintained on the large [id number] images of the entire pelvis. OSSEOUS STRUCTURES: No fracture, marrow edema or marrow replacement process. MUSCULOTENDINOUS STRUCTURES AND BURSAE: Distal gluteal tendons are intact. No trochanteric bursitis. Common hamstring tendons intact. Distal iliopsoas tendons are intact. No iliopsoas bursitis. Conjoined adductor tendons are intact at their medial pubic attachment site. OTHER FINDINGS: Pubic symphysis intact. Sacroiliac joints are maintained. INTRAPELVIC CONTENTS: Small pelvic free fluid is likely physiologic. No inguinal hernia. IMPRESSION: 1. 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 No acetabular retroversion. 2. The articular surfaces of the left hip are smooth without focal articular cartilage defect. 3. Small focus of linear contrast between the anterior superior labral periphery and hip joint capsule of questionable significance given its very limited nature. The adjacent labrum appears intact. Other portions of labrum are intact. 4. No fracture, stress change or AVN. 5. Tendons intact. No bursitis. Dictated by Jose Daniel Whelan MD @ 05/14/2025 10:37:27 AM (Electronically Signed)
== END 2025-05-11 08:54 | disposition home or self-care (01) ==
LOC: RAD 08:53
PROVIDERS: Visit Provider Family Medicine
DX: M25.852 Other specified joint disorders, left hip (principal)
CPT/HCPCS: 27093; 73525; 73722; 77002; A9575; Q9966

== ENCOUNTER 2025-07-28 18:52 | Emergency (ER) | payer BC, SELFPAY ==
--- OUTSIDE RECORDS SUMMARY | 2025-07-28 18:55 | XMS_ITS | Clinical Summary ---
Author Organization [place] Address [address] [place] [id number] Care Team Providers Care Betting Agency Counter Clerk Name Role Phone No Ref-Primary, Physician Primary Care Provider Allergies No known active allergies Medications [id number]-[id number] 0.18/0.215/0.25 MG-25 MCG tablet Take 1 tablet by mouth daily at 2 pm 04/05/2023 Active methylphenidate (METADATE ER) 10 MG CR tablet Take 10 mg by mouth every morning Active ondansetron (ZOFRAN) 4 MG/5ML solution Take 5 mLs (4 mg) by mouth every 8 hours. 180 mL 06/15/2024 Active Active Problems No known active problems [...] 74 06/15/2024 4:12 PM CDT Temperature 36.4 C (97.6 F) 06/15/2024 12:46 PM CDT Respiratory Rate 18 06/15/2024 4:12 PM CDT [...] OF HM ORDERS 2004 YEARLY PREVENTIVE VISIT 2007 HIV SCREENING 2019 MENINGITIS B VACCINE (1 of 2 - Standard) 2020 HEPATITIS C SCREENING 2022 CHLAMYDIA SCREENING 03/02/2024 03/02/2023, 2 PHQ-2 (once per calendar year) 2024 PAP 2025 COVID-19 VACCINE ( season) 2025 07/22/2022, 08/14/2021, 01/04/2021, Additional history exists INFLUENZA VACCINE (#1) 2025 1, 11/25/2020, 05/15/2019, Additional history exists DTAP/TDAP/TD VACCINE (7 - Td or Tdap) 07/26/2025 07/26/2015, 2009, 10/02/2005, Additional history exists ZOSTER VACCINE (1 of 2) 2054 HEPATITIS B VACCINE Completed 2004, 2004, 2004 PNEUMOCOCCAL VACCINE: PEDIATRICS (0 to 5 YEARS) AND AT-RISK PATIENTS (6 to 49 YEARS) Aged Out 2005, 2004, 2004, Additional history exists No longer eligible based on patient's age to complete this topic HPV VACCINE Completed 04/22/2018, 05/03/2017 MENINGITIS VACCINE Completed 01/27/2021, 07/26/2015 Procedures Procedure Name Priority Date/Time Associated Diagnosis Comments CHLAMYDIA TRACHOMATIS/NEISSERI A GONORRHOEAE BY PCR Routine 03/02/2023 11:31 AM CDT Acne, unspecified from Last 3 Months or Most Recently Relevant to Health Maintenance Results * Chlamydia trachomatis/Neisseria gonorrhoeae by PCR (03/02/2023 11:31 AM CDT) Chlamydia Trachomatis Negative Negative 03/03/2023 12:34 PM CDT [facility] Comment: Negative for C. trachomatis rRNA by manager furniture mediated amplification. A negative result by manager furniture mediated amplification does not preclude the presence of infection because results are dependent on proper and adequate collection, absence of inhibitors and sufficient rRNA to be detected. Neisseria gonorrhoeae Negative Negative 03/03/2023 12:34 PM CDT [facility] Comment:Negative for N. gono rrhoeae rRNA by manager furniture mediated amplification. A negative result by manager furniture mediated amplification does not preclude the presence of C. trachomatis infection because results are dependent on proper and adequate collection, absence of inhibitors and sufficient rRNA to be detected. Urine VOIDED URINE SPECIMEN / Unknown Non-blood Collection / Unknown 03/02/2023 11:31 AM CDT 03/02/2023 2:39 PM CDT Cuca Lorenzo MD LAB - MICRO GENERAL ORDStew WEISS Final Result [facility] Inf. Diseases Diag. Lab [address] [facility], [address] [place] [address], [facility] [phone] from Last 3 Months or Most Recently Relevant to Health Maintenance [place] [address] Care Teams Betting Agency Counter Clerk Relationship Specialty Start Date End Date No Ref-Primary, Physician PCP - General 08/26/21
--- OUTSIDE RECORDS SUMMARY | 2025-07-28 18:55 | XMS_ITS | Clinical Summary ---
Author Organization [employer] [facility] & [facility] Address [address] [place] [address] Care Team Providers Care Signal Helper Name Role Phone Bonnie Kent MD Primary Care Provider [phone] Allergies No known active allergies Medications meloxicam 15 mg tabletIndication s:Left hip impingement syndrome Take 1 Tablet (15 mg) by mouth once daily. 30 Tablet 1 05/18/2025 Active Active Problems Problem Noted Date Diagnosed Date Iron deficiency anemia 08/29/2024 Overview (08/29/2024): Before and after tonsillar abscess Surgery 2023. Ferritin was down to 26 August 2024, with Hemoglobin previously down to 10 up to 02 September 2024: Encounters Date Type Department Care Team Description 06/01/2025 11:00 AM CDT Procedure Only [facility] [address] [facility] [place] [address] Vinnie White MD Musculoskeletal Problem (Ultrasound hip in... 06/01/2025 Travel 05/28/2025 Telephone [facility] [address] [place] [address] [address] Vinnie White MD INJECTION 05/18/2025 Orders Only [facility] [address] [place] [address] Vinnie White MD <No scans attached> 05/11/2025 Orders Only [facility] Scanner 1 scan: (1-Ord) [facility], HIP W/CON, 05/11/2025 05/11/2025 Orders Only [facility] Scanner 1 scan: (1-Ord) [facility], [place] ARTHROGRAM HIP LT, 05/11/2025 05/03/2025 11:30 AM CDT Orders Only [facility] [address] [place] [address] Lab, [facility] 05/02/2025 Travel 04/28/2025 Travel from Last 3 Months Family History Relation Name Status Comments Father Alive Mother Alive Social History Tobacco Use Types Packs/Day Years Used Date Smoking Tobacco: Never Smokeless Tobacco: Never Alcohol Use Standard Drinks/Week Comments Never 0 (1 standard drink = 0.6 oz pur e alcohol) Comments No Sex and Gender Information Value Date Recorded Sex Assigned at Not on file 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 Gender Identity Not on file Sexual Orientation Not on file Last Filed Vital Signs Vital Sign Reading Time Taken Comments Blood Pressure 81/53 06/01/2025 10:51 AM CDT Pulse 76 06/01/2025 10:51 AM CDT Temperature 36.7 C (98.1 F) 06/01/2025 10:51 AM CDT Respiratory Rate 18 05/12/2020 2:15 PM CDT Oxygen Saturation 100% 06/01/2025 10: 51 AM CDT Inhaled Oxygen Concentration - - Weight 61.6 kg (135 lb 11.2 oz) 025 10:51 AM CDT Height 175.3 cm (5' 9) 04/10/2020 4:56 PM CDT Body Mass Index - - Plan of Treatment Health Maintenance Due Date Last Done Comments Tetanus booster 2015 Depression screening for age 12+ 2016 HIV for age 15-65 2019 HPV series for age 9-45 (1 - 3-dose series) 2019 BMI (ht and wt on same day) for age 18+ 2022 Hepatitis C screening for age 18-79 2022 Hepatitis B series for 19+ (1 of 3 - 19+ 3-dose series) 2023 Pap test for age 21-65 2025 COVID-19 vaccine series ( season) 2025 07/22/2022, 08/14/2021, 01/04/2021, Additional history exists Influenza Vaccine (#1) 2025 RSV vaccine for adults or (1 - 1-dose 75+ series) 2079 Meningococcal series for age 11-21 Aged Out No longer eligible based on patient's age to complete this topic Pneumococcal series for age 6-49 Aged Out No longer eligible based on patient's age to complete this topic Procedures Procedure Name Priority Date/Time Associated Diagnosis Comments SCAN-MRI INTERPRETATION 05/11/2025 12:00 AM CDT SCAN-OPERATIVE/PROCEDU RE REPORT 05/11/2025 12:00 AM CDT FERRITIN Routine 05/03/2025 11:29 AM CDT Iron deficiency anemia, unspecified iron deficiency anemia type CBC W PLT NO DIFF Routine 05/03/2025 11: 29 AM CDT Iron deficiency anemia, unspecified iron deficiency anemia type from Last 3 Months Results * SCAN-OPERATIVE/PROCEDURE REPORT (05/11/2025 12:00 AM CDT) us Scanner OTHER Final Result * SCAN-MRI INTERPRETATION (05/11/2025 12:00 AM CDT) Anatomical Region Laterality Modality Other us Scanner OTHER Final Result * (ABNORMAL) CBC W PLT NO DIFF (05/03/2025 11:29 AM CDT) WHITE BLOOD CELL COUNT 5.4 3.8 - 10.8 Thousand/ uL 05/04/2025 3:40 AM CDT [facility] RED BLOOD CELL COUNT 4.86 3.80 - 5.10 Million/u L 05/04/2025 3:40 AM CDT [facility] HEMOGLOBIN 11.4(L) 11.7 - 15.5 g/dL 05/04/2025 3:40 AM CDT [facility] HEMATOCRIT 38.0 35.0 - 45.0 % 05/04/2025 3:40 AM CDT [facility] MCV 78.2(L) 80.0 - 100.0 fL 05/04/2025 3:40 AM CDT [facility] MCH 23.5(L) 27.0 - 33.0 pg 05/04/2025 3:40 AM CDT [facility] MCHC 30.0(L) 32.0 - 36.0 g/dL 05/04/2025 3:40 AM CDT [facility] Comment: For adults, a slight decrease in the calculated MCHC value (in the range of 30 to 32 g/dL) is most likely not clinically significant; however, it should be interpreted with caution in correlation with other red cell parameters and the patient's clinical condition. RDW 16.1(H) 11.0 - 15.0 % 05/04/2025 3:40 AM CDT [facility] PLATELET COUNT 348 140 - 400 Thousand/ uL 05/04/2025 3:40 AM CDT [facility] MPV 10.8 7.5 - 12.5 fL 05/04/2025 3:40 AM CDT [facility] Blood BLOOD SPECIMEN / Unknown [facility] / Unknown 05/03/2025 11:29 AM CDT 05/03/2025 11:29 AM CDT Vinnie White MD HEMATOLOGY Final Resu lt [facility] [place] [id number], * (ABNORMAL) FERRITIN (05/03/2025 11:29 AM CDT) FERRITIN 7(L) 16 - 154 ng/mL 05/04/2025 3:52 AM CDT [facility] Blood BLOOD SPECIMEN / Unknown [facility] / Unknown 05/03/2025 11:29 AM CDT 05/03/2025 11:29 AM CDT Vinnie White MD CHEMISTRY Final Resu lt [facility] [address] [place] [address], [place] [phone] from Last 3 Months Insurance [facility] Care Teams Signal Helper Relationship Specialty Start Date End Date Bonnie Kent MD [facility] [place] [address] PCP - General Pediatric 04/10/20
[2025-07-28 19:06] VITALS: BP 120/85; PULSE 95; RESP 20; TEMP 37.6; O2SAT 99; BMI 20.2
[2025-07-28 19:35] LABS: Strep A DNA Probe* NOT DETECTED (Not Detectd)
--- NOTE | 2025-07-28 19:43 | CRLHL7_ITS ---
For Patients: As a result of the Cures Act, medical imaging exams and procedure reports are released immediately into your electronic medical record. You may view this report before your referring provider. If you have questions, please contact your health care provider. Indication: Fever and cough. Technique: Two views of the chest. Comparison: Chest x-ray 05/09/2024. Findings/Impression: The heart is not abnormally enlarged. Mediastinal contours are grossly within normal limits. No confluent airspace opacity. No pleural effusion or pneumothorax. No acute osseous abnormality. Dictated by Parth Soliman MD @ 07/28/2025 8:18:23 PM (Electronically Signed)
--- NOTE | 2025-07-28 19:45 | ED_ITS ---
HPI - General Adult General Date Seen: 07/28/25 Chief complaint: Cough Stated complaint: Fever, cough Time Seen by Provider: 07/28/25 19:40 Source: patient Mode of arrival: ambulatory Limitations: no limitations History of Present Illness HPI narrative: Patient is a 20-year-old female presenting to the emergency department for a fever and cough. States she has been having a cough the past 2 weeks with some viral symptoms. Over the past 2 days she has been having fevers and worsening shortness of breath. Has also noticed chest pain that is worse with deep breathing. She states her family members have had norovirus. She had some nausea earlier that has since resolved. Denies any abdominal pain. Denies any constipation and diarrhea. States she has been having good p.o. intake. She is concerned because symptoms are getting worse. Denies headache but does states she occasionally feels lightheaded. Does not have any dizziness. Denies weakness or numbness. Denies any medical issues. Is not on any hormone treatment. Denies hemoptysis, cancer history, recent surgeries, history of blood clots, lower extremity swelling. Denies a sore throat. Does state she feels like she has been breathing faster today and was concerned that she had some numbness around her lips that has since improved. No other concerns noted at this time. Related Data Home Medications ?Medication ?Instructions ?Recorded ?Confirmed No Known Home Medications 07/28/2502/14 Allergies Allergy/AdvReac Type Severity Reaction Status Date / Time No Known Drug Allergies Allergy Verified 07/28/25 19:07 Review of Systems Status of ROS: Reports: 10 or more systems reviewed and unremarkable except as noted in History and below [facility] Medical History No significant past medical history Surgical History History of incision and drainage ?Z98.890 - Other specified postprocedural states (ICD-10) Social History What is your current living situation?: I presently have a place to live Problems where you live: no known problems Problems where you live details: na In the past 12 months, utilities in danger of being shut off: no In past 12 months, lack of transportation kept you from medical appts, meetings, work, or getting things needed for daily living: no In the past 12 mos, have been you worried that your food would run out before you had money to buy more?: never true In the past 12 mos, the food you bought just didn't last and you didn't have m oney to buy more?: never true Highest level of school completed/degree received: some college, no degree Smoking Status: Former smoker Do you use any of these nicotine containing products: Vaping Products Second hand tobacco smoke exposure: No How often do you have a drink containing alcohol: 2-3 times a week Alcohol type: beer How many standard drinks containing alcohol do you have on a typical day: 1 or 2 How often do you have six or more drinks on one occasion: Never AUDIT-C Alcohol total score: 3 Non-prescribed substance use: marijuana (any form) Caffeine: Yes How often does anyone, including family, friends and others, physically hurt you : never How often does anyone, including family, friends and others, insult or talk down to you: never How often does anyone, including family, friends and others, threaten you with harm: never How often does anyone, including family, friends and others, scream or curse at you: never service: No Exam Narrative: Exam Narrative: Const: Well-nourished, Well-developed, in mild distress Eyes: PERRL, no conjunctival injection, and symmetrical lids HENT: Atraumatic external nose and ears. Moist mucous membranes. Neck: Symmetric, trachea midline, No thyromegaly. CVS: RRR, No murmurs or gallops. Peripheral pulses 2+ and equal in all extremities RESP: Unlabored respiratory effort. Clear to auscultation bilaterally. GI: Nontender/Nondistended, No rebound or guarding. MSK:Extremities w/o deformity, Normal Active ROM Skin: Warm, Dry. No rashes or lesions. Neuro: Normal Muscle tone, No focal neurological deficits. Psych: Awake, Alert, & Oriented x3. Appropriate mood and affect. Const: Vital Signs, click to edit/add: Vital Signs - 24 hr 07/28/25 19:06 Temperature 99.7 F H Pulse Rate [Right Pulse Oximeter] 95 Respiratory Rate 20 Blood Pressure [Ri ght Upper Arm] 120/85 Pulse Oximetry 99 Oxygen Delivery Me thod Room Air Course Vital Signs Vital signs: Initial Vital Signs Respiratory Effort Normal, Spontaneous, Non-Labored 07/28/25 19:00 Respiratory Depth Normal 07/28/25 19:00 Respiratory Pattern Normal 07/28/25 19:00 Vital Signs Temperature 99.7 F H 07/28/25 19:06 Pulse Rate 95 07/28/25 19:06 Respiratory Rate 20 07/28/25 19:06 Blood Pressure 120/85 07/28/25 19:06 Pulse Oximetry 99 07/28/25 19:06 Oxygen Delivery Method Room Air 07/28/25 19:06 Temperature 99.7 F H 07/28/25 19:06 Pulse Rate 95 07/28/25 19:06 Respiratory Rate 20 07/28/25 19:06 Blood Pressure 120/85 07/28/25 19:06 Pulse Oximetry 99 07/28/25 19:06 Oxygen Delivery Method Room Air 07/28/25 19:06 Medical Decision Making [facility] Narrative Medical decision making narrative: Patient is a 20-year-old female presenting to the emergency department for fever, cough, chest pain. Symptoms could all be viral in nature. The differential diagnosis of chest pain is broad and includes common etiologies such as musculoskeletal strain, GERD, pneumonia, etc. More serious etiologies considered include PE, coronary artery disease, pneumothorax, aortic dissection, aortic aneurysm. She looks otherwise well and I have low concern for aortic aneurysm or aortic dissection. She is PERC negative and PE can be ruled out. Will do EKG and troponin to look for cardiac abnormalities. Chest x-ray ordered look for pneumonia pneumothorax. Will also order BMP, CBC, magnesium. Viral swab and strep swab ordered in triage. The numbness around her lips this could be from hyperventilation but will check electrolytes to make sure there is nothing more concerning. Patient is influenza positive which is likely the cause of her symptoms. EKG interpreted by myself independently shows no acute concerning abnormalities. Lab work shows no acute concerning abnormalities. Hemoglobin appears at baseline. Electrolytes within normal limits. Point of care high sensitivity troponin is 4.8. This is within normal limits. Considering symptoms have been going on for couple days do not believe repeat troponin is necessary. Chest x- ray interpreted by myself and the radiologist independently showed no acute concerning abnormalities. She safe for discharge. She is agreeable to this plan. Lab Data Labs: Lab Results 07/28/25 07/28/25 Range/Units 18:00 19:50 WBC 5.62 (4.50-11.00) K/uL RBC 4.79 (4.00-5.20) m/uL Hgb 10.8 L (12.0-16.0) gm/dL Hct 36.0 (33.0-51.0) % MCV 75 L (80-100) fL MCH 23 L (26-34) pg MCHC 30 L (32-36) gm/dL RDW Coeff of Manoj 16.8 H (11.5-15.5) % Plt Count 251 (140-440) K/uL Neut % (Auto) 62.5 (42.0-72.0) % Lymph % (Auto) 19.2 L (20-44) % [place] % (Auto) 17.1 H (0.0-11.0) % Eos % (Auto) 0.5 (0.0-7.0) % Baso % (Auto) 0.7 (0.0-3.0) % Neut # (Auto) 3.51 (1.7-7.0) K/uL Lymph # (Auto) 1.10 (0.90-2.90) K/uL [place] # (Auto) 1.00 H (0.00-0.90) K/UL Eos # (Auto) 0.03 (0.00-0.50) K/uL Baso # (Auto) 0.04 (0.00-0.30) K/uL Abs Immat Gran (auto) 0.00 (0.00-0.30) K/uL Imm/Tot Granulo (auto) 0.0 % Sodium 136 (135-149) mmol/L Potassium 3.6 (3.6-5.1) mmol/L Chloride 99 (96-114) mmol/L Carbon Dioxide 23 (20-32) mmol/L Anion Gap 14 (7-15) mEq/L BUN 10 (5-24) mg/dL Creatinine 0.9 (0.5-1.5) mg/dL Estimated Creat Clear 97.00 Estimated GFR 93 ml/min Glucose 155 H (60-115) mg/dL Calcium 8.9 (8.4-10.6) mg/dL Magnesium 1.9 (1.5-2.6) mg/dL SARS-CoV-2 (PCR) Negative SARS-CoV-2 (Negative) Influenza Type A (PCR) POSITIVE PCR FLU A A (Negative) Influenza Type B (PCR) Negative PCR FLU B (Negative) RSV (PCR) Negative PCR RSV (Negative) Group A Strep DNA NOT DETECTED (Not Detectd) Imaging Data Chest x-ray: Attestation: I have reviewed the pertinent imaging results. Radiologist's impression: The heart is not abnormally enlarged. Mediastinal contours are grossly within normal limits. No confluent airspace opacity. No pleural effusion or pneumothorax. No acute osseous abnormality. Dictated by Parth Soliman MD @ 07/28/2025 8:18:23 PM ECG Data Attestation: I personally reviewed and interpreted this ECG as follows: Prior ECG tracings: not available for review Interpretation: Normal sinus rhythm with rate 75 beats per minute, normal intervals, normal axis, no ST or T-wave abnormalities. Discharge Plan Discharge Clinical Impression: Influenza A Patient Disposition: Home, Self-Care Condition: Stable Instructions: Influenza (DC) Additional Instructions: You have influenza. Take Tylenol and ibuprofen as needed for symptoms. Return to emergency department for new or worsening symptoms. Symptoms should improve on their own over time. Prescriptions: No Action No Known Home Medications Follow Up/Referrals: Provider,Not a Local [Primary Care Provider, Family Practice] Stand Alone Forms: My [employer] Info Instructions
[2025-07-28 19:48] LABS: PCR FLU A POSITIVE PCR FLU A (Negative); PCR FLU B Negative PCR FLU B (Negative); PCR RSV Negative PCR RSV (Negative); SARS PCR* Negative SARS-CoV-2 (Negative)
[2025-07-28 19:55] LABS: Hematocrit* 36.0 % (33.0-51.0); Hemoglobin* 10.8 gm/dL (12.0-16.0); Immature Granulocytes Abs Auto 0.00 K/uL (0.00-0.30); Immature Granulocytes Pct Auto 0.0 %; Mean Corpuscular HGB Conc 30 gm/dL (32-36); Mean Corpuscular Hemoglobin 23 pg (26-34); Mean Corpuscular Volume 75 fL (80-100); RDW Coefficient of Variation % 16.8 % (11.5-15.5); Red Blood Count* 4.79 m/uL (4.00-5.20); White Blood Count* 5.62 K/uL (4.50-11.00)
[2025-07-28 20:02] LABS: Lymphocytes Absolute Auto 1.10 K/uL (0.90-2.90); Slide Review Reflex No
[2025-07-28 20:10] LABS: Chloride* 99 mmol/L (96-114); Potassium* 3.6 mmol/L (3.6-5.1); Sodium* 136 mmol/L (135-149)
[2025-07-28 20:13] LABS: Anion Gap 14 mEq/L (7-15); Blood Urea Nitrogen* 10 mg/dL (5-24); Calcium* 8.9 mg/dL (8.4-10.6); Carbon Dioxide* 23 mmol/L (20-32); Creatinine* 0.9 mg/dL (0.5-1.5); Est. Creatinine Clearance* 97.00; Estimated Glomerular Filt Rate 93 ml/min; Glucose* 155 mg/dL (60-115)
[2025-07-28 20:25] VITALS: BP 121/74; PULSE 89; RESP 20; TEMP 37.5; O2SAT 99
[2025-07-28 20:26] VITALS: BP 121/74; PULSE 89; RESP 20; TEMP 37.5
== END 2025-07-28 20:35 | disposition home or self-care (01) ==
PROVIDERS: Emergency Provider Student in an Organized Health Care Education/Training Program
DX: J10.1 Influenza due to other identified influenza virus with other respiratory manifestations (principal)
CPT/HCPCS: 36415; 71046; 80048; 83735; 84484; 85025; 87631; 87651; 93005; 99284; 99285